=== PATIENT | female | born 1955 | race Caucasian/White ===

== ENCOUNTER 2022-11-28 13:50 | Outpatient (OUT) | payer MEDICARE, OTHER, SELFPAY ==
--- NOTE | 2022-11-28 14:05 | MM_ITS ---
Patient: SHA BALTAZAR Exam Date: 11/28/2022 : 1955 Gender:F Ordering : DR Narendra Brasher . Admission #: [id number] Family : Order #: [id number] CLICK HERE TO VIEW EXAM RADIOLOGY REPORT PROCEDURE: MM TOMOSYNTHESIS SCREENING BI COMPARISON: MG MAMM SCREEN 3D TRACY CAD, 10/20/2020. MG MAMM SCREEN TRACY W CAD, 07/31/2016. INDICATIONS: Screening Calculator Name NCI Breast Cancer Risk Assessment Tool 5 Year Breast Cancer Risk 3.10% Lifetime Breast Cancer Risk 10.40% Personal Breast Cancer No Personal Ovarian Cancer No Treatments None Family Cancers Mother with leukemia cancer at age 83; Father with brain cancer at age 74. LOCATION: [facility] BREAST COMPOSITION: Heterogeneously dense,which may obscure small masses. FINDINGS: DIAGNOSTIC CATEGORY 2--BENIGN FINDING. NO CHANGE FROM COMPARISON. Scattered benign-appearing calcifications are present. Scattered benign-appearing lymph nodes are present. RIGHT BREAST: No significant suspicious finding. Stable focal asymmetry upper outer quadrant deep to a linear scar marker LEFT BREAST: No significant suspicious finding. RECOMMENDATIONS: ROUTINE MAMMOGRAM AND CLINICAL EVALUATION IN 12 MONTHS. PLEASE NOTE: A NORMAL MAMMOGRAM DOES NOT EXCLUDE THE POSSIBILITY OF BREAST CANCER. A CLINICALLY SUSPICIOUS PALPABLE LUMP SHOULD BE BIOPSIED. Dictated by: Sharath العراقي MD on 11/29/2022 at 06:30 Approved by: Sharath العراقي MD on 11/29/2022 at 06:32
[2022-11-28 14:07] LABS: Basophils Absolute Auto 0.1 10^3/uL (0.0-0.1); Basophils Percent Auto 1.1 % (0.2-2.0); Eosinophils Absolute Auto 0.1 10^3/uL (0.0-0.7); Eosinophils Percent Auto 1.5 % (0.9-7.0); Hematocrit 40.1 % (36.0-48.0); Immature Granulocytes Abs Auto 0.02 10^3/uL (0.00-0.03); Immature Granulocytes Pct Auto 0.3 % (0.0-0.5); Lymphocytes Absolute Auto 2.5 10^3/uL (1.2-3.8); Lymphocytes Percent Auto 33.4 % (20.5-60.0); Mean Corpuscular HGB Conc 32.4 g/dL (29.9-35.2); Mean Corpuscular Hemoglobin 31.5 pg (26.7-34.0); Mean Corpuscular Volume 97.1 fL (81.0-99.0); Mean Platelet Volume 10.6 fL (9.5-13.5); Monocytes Absolute Auto 0.6 10^3/uL (0.3-0.8); Monocytes Percent Auto 8.1 % (1.7-12.0); Neutrophils Absolute Auto 4.2 10^3/uL (1.4-6.5); Neutrophils Percent Auto 55.6 % (43.0-75.0); Platelet Count 201 10^3/uL (150-450); Red Blood Count 4.13 10^6/uL (4.20-5.40); Red Cell Distribution Width 13.5 % (11.0-15.0); White Blood Count 7.5 10^3/uL (4.0-11.0)
[2022-11-28 14:47] LABS: Alanine Aminotransferase 22 U/L (14-59); Albumin Globulin Ratio 1.2; Albumin Level 3.6 g/dL (3.4-5.0); Alkaline Phosphatase 116 U/L (46-116); Anion Gap 12.5; Aspartate Amino Transferase 11 U/L (15-37); Bilirubin Direct 0.1 mg/dL (0.0-0.2); Bilirubin Total 0.4 mg/dL (0.2-1.0); Calcium 8.6 mg/dL (8.5-10.1); Carbon Dioxide 27.5 mmol/L (21.0-32.0); Chloride 100 mmol/L (98-107); Chol HDL Ratio 2.5; Cholesterol 192 mg/dL (<=200); Estimated GFR (African America >60 (>=60); Estimated GFR (Non-African Ame >60 (>=60); Globulin 3.1 g/dL; Glucose 87 mg/dL (74-106); HDL Cholesterol 78 mg/dL (40-60); Sodium 136 mmol/L (136-145); Total Protein 6.7 g/dL (6.4-8.2); Triglycerides 164 mg/dL (<=150); VLDL CHOLESTEROL 32.8 mg/dL
== END 2022-11-28 13:51 | disposition home or self-care (01) ==
LOC: MAMMO 13:51
PROVIDERS: PCP Family Medicine; Visit Provider Family Medicine
DX: Z12.31 Encounter for screening mammogram for malignant neoplasm of breast (principal); I10 Essential (primary) hypertension; Z79.899 Other long term (current) drug therapy; Z13.220 Encounter for screening for lipoid disorders; Z80.6 Family history of leukemia
CPT/HCPCS: 36415; 77063; 77067; 80048; 80061; 80076; 85025

== ENCOUNTER 2023-07-06 11:30 | Outpatient (OUT) | payer MEDICARE, OTHER, SELFPAY ==
[2023-07-06 11:55] LABS: Basophils Absolute Auto 0.1 10^3/uL (0.0-0.1); Basophils Percent Auto 1.1 % (0.2-2.0); Eosinophils Absolute Auto 0.2 10^3/uL (0.0-0.7); Eosinophils Percent Auto 1.8 % (0.9-7.0); Hematocrit 39.4 % (36.0-48.0); Hemoglobin 12.7 g/dL (12.0-16.0); Immature Granulocytes Abs Auto 0.03 10^3/uL (0.00-0.03); Immature Granulocytes Pct Auto 0.4 % (0.0-0.5); Lymphocytes Absolute Auto 2.5 10^3/uL (1.2-3.8); Lymphocytes Percent Auto 29.6 % (20.5-60.0); Mean Corpuscular HGB Conc 32.2 g/dL (29.9-35.2); Mean Corpuscular Hemoglobin 30.8 pg (26.7-34.0); Mean Corpuscular Volume 95.6 fL (81.0-99.0); Mean Platelet Volume 10.4 fL (9.5-13.5); Monocytes Absolute Auto 0.9 10^3/uL (0.3-0.8); Monocytes Percent Auto 10.4 % (1.7-12.0); Neutrophils Absolute Auto 4.8 10^3/uL (1.4-6.5); Neutrophils Percent Auto 56.7 % (43.0-75.0); Platelet Count 208 10^3/uL (150-450); Red Blood Count 4.12 10^6/uL (4.20-5.40); Red Cell Distribution Width 13.6 % (11.0-15.0); White Blood Count 8.4 10^3/uL (4.0-11.0)
[2023-07-06 12:16] LABS: Anion Gap 13.3; BUN Creatinine Ratio 16.2; C Reactive Protein 0.69 mg/dL (<=0.50); Calcium 9.3 mg/dL (8.5-10.1); Carbon Dioxide 27.1 mmol/L (21.0-32.0); Chloride 96 mmol/L (98-107); Creatine Kinase 30 U/L (26-192); Estimated GFR (African America >60 (>=60); Estimated GFR (Non-African Ame >60 (>=60); Glucose 75 mg/dL (74-106); Potassium 4.4 mmol/L (3.5-5.1); Sodium 132 mmol/L (136-145)
[2023-07-06 12:18] LABS: Erythrocyte Sedimentation Rate 47 mm/hr (<=30)
[2023-07-07 06:16] LABS: Rheumatoid Factor (RF) <10.0 IU/mL (<14.0)
[2023-07-10 14:08] LABS: Antinuclear Antibodies, IFA Negative (.)
== END 2023-07-06 11:31 | disposition home or self-care (01) ==
LOC: LAB 11:32
PROVIDERS: PCP Family Medicine; Visit Provider Family Medicine
DX: M79.10 Myalgia, unspecified site (principal); M25.541 Pain in joints of right hand; M25.542 Pain in joints of left hand; I10 Essential (primary) hypertension; Z79.899 Other long term (current) drug therapy
CPT/HCPCS: 36415; 80048; 82550; 85025; 85652; 86038; 86140; 86431

== ENCOUNTER 2024-04-23 12:45 | Outpatient (OUT) | payer MEDICARE, SELFPAY ==
--- NOTE | 2024-04-23 12:50 | MM_ITS ---
Patient Name: SHA BALTAZAR MR#: [id number] : 1955 Exam Date: 04/23/2024 Ordering Doctor: DR Narendra Brasher . RADIOLOGY REPORT PROCEDURE: MM TOMOSYNTHESIS SCREENING BI COMPARISON: MM TOMOSYNTHESIS SCREENING BI, 11/28/2022. MG MAMM SCREEN 3D TRACY CAD, 10/20/2020. MG MAMM SCREEN TRACY W CAD, 07/31/2016. INDICATIONS: Screening Calculator Name NCI Breast Cancer Risk Assessment Tool 5 Year Breast Cancer Risk 3.10% Lifetime Breast Cancer Risk 9.50% Personal Breast Cancer No Personal Ovarian Cancer No Treatments None Family Cancers Mother with leukemia cancer at age 83; Father with brain cancer at age 74. LOCATION: [facility] BREAST COMPOSITION: There are scattered areas of fibroglandular density. FINDINGS: DIAGNOSTIC CATEGORY 1--NEGATIVE. LEFT BREAST: No significant suspicious finding. RIGHT BREAST: No significant suspicious finding. RECOMMENDATIONS: ROUTINE MAMMOGRAM AND CLINICAL EVALUATION IN 12 MONTHS. PLEASE NOTE: A NORMAL MAMMOGRAM DOES NOT EXCLUDE THE POSSIBILITY OF BREAST CANCER. A CLINICALLY SUSPICIOUS PALPABLE LUMP SHOULD BE BIOPSIED. Dictated by: Josiah Don DO on 04/24/2024 at 09:57 Approved by: Josiah Don DO on 04/24/2024 at 09:58
--- OUTSIDE RECORDS SUMMARY | 2024-04-23 12:51 | XMS_ITS | CCD ---
Author Organization [facility] Care Team Providers [place] Nurse Name Role Phone Callum Chua Unavailable SERVANDO, DR NARENDRA Dykes Admitting Unavailable SERVANDO, DR NARENDRA Dykes Primary Care Unavailable SERVANDO, DR NARENDRA Dykes Attending Unavailable AMRIK ., DR SOW Consulting Unavailable MOISES, DR ROLAN Tucker Consulting Unavaildimitrios KEVIN, DR ABDULLAHI Do Consulting Unavailable SERVANDO, DR NARENDRA Dykes Consulting Unavailable KELTON, MICHAEL Consulting Unavailable JAMAL, CARRIE Consulting Unavailable SERVANDO, DR NARENDRA Dykes Primary Care Unavailable SERVANDO, DR NARENDRA Dykes Consulting Unavailable SERVANDO, DR NARENDRA Dykes Attending Unavailable SERVANDO, DR NARENDRA Dykes Admitting Unavailable NO FAMILY, PHYSICIAN Primary Care Provider Unava ilable Steve Healy MD Attending Provider Steve Healy Attending Unavailable NO FAMILY, PHYSICIAN Primary Care Unavailable Steve Healy Admitting Unavailable Steve Healy Admitting Unavailable Steve Healy Attending Unavailable NO FAMILY, PHYSICIAN Primary Care Unavailable Narendra Al MD Primary Care Provider [phone] Narendra Al MD Unavailable NARENDRA AL Attending Unavailable SERVANDO, NARENDRA Attending Unavailable SERVANDO, NARENDRA Attending Unavailable NARENDRA AL Attending Unavailable Medications Current Medications Medication Drug Class(es) Dates Sig (Normalized) Sig (Original) [id number] 200 actuat albuterol 0.09 mg/actuat metered dose inhaler (2 sources) beta2-Adrenergic Agonist Start: 04-07-2024 take 2 puff(s) by inhalation every four hours for wheezing albuterol HFA 90 mcg/act inhaler Indications: Acute bronchitis due to other specified organisms Inhale 2 puffs every 4 (four) hours if needed for shortness of breath or wheezing 18 g 2 04/07/2024 Active Start: 04-07-2024 take 2 puff(s) by in halation every four hours for wheezing albuterol HFA 90 mcg/act inhaler Indications: Acute bronchitis due to other specified organisms Inhale 2 puffs every 4 (four) hours if needed for shortness of breath or wheezing 18 g 2 04/07/2024 Active budesonide 3 mg delayed release oral capsule (8 sources) Corticosteroid Start: 01-17-2024 take 1 capsule by mouth once daily Budesonide 3 mg capsule,delayed,extend.release Active 3 MG PO Daily January 17, 2024 12:00am Start: 12-11-2017 take 1 capsule by mo [facility] every twenty-four hours Budesonide 3 MG 1 CAPSULE Orally Once a day for 90 days Nov, Active take 1 capsule by mo ut in the morning, then take 3 mg by mouth every twenty-four hours budesonide EC (Entocort EC) 3 MG 24 hr capsule Take 6 mg by mouth in the morning. Active cefdinir 300 mg oral capsule (2 sources) Cephalosporin Antibacterial Start: 03-26-2024 End: 04-07-2024 take 1 capsule by mouth in the morning cefdinir (Omnicef) 300 MG capsule Indications: Upper respiratory tract infection, unspecified type Take 1 capsule (300 mg) by mouth in the morning and 1 capsule (300 mg) before bedtime. Do all this for 10 days. 20 capsule 03/26/2024 04/07/2024 Discontinued cholecalciferol 0.05 mg oral capsule (3 sources) Vitamin D take 1 capsule by mouth in the morning cholecalciferol (Vitamin D-3) 50 MCG (1999 UT) capsule Take 2,000 Units by mouth in the morning. Active levoFLOXacin 750 mg oral tablet (2 sources) Quinolone Antimicrobial Start: 04-07-2024 End: 04-14-2024 take 1 tablet by mouth once daily levoFLOXacin (Levaquin) 750 MG tablet Indications: Acute bronchitis due to other specified organisms Take 1 tablet (750 mg) by mouth Daily for 7 days 7 tablet 04/07/2024 04/14/2024 Active lisinopril 40 mg oral tablet (9 sources) Angiotensin Converting Enzyme Inhibitor Start: 11-07-2023 take 1 tablet by mouth once daily lisinopril 40 MG tablet Indications: Essential (primary) hypertension (CMS/HCC) , Benign essential hypertension (CMS/HCC) TAKE 1 TABLET BY MOUTH EVERY DAY 90 tablet 3 11/07/2023 Active Start: 11-28-2017 take 1 tablet by david once daily Lisinopril 20 mg tablet Active 20 MG PO Daily November 27, 2017 11:00pm predniSONE 50 mg oral tablet (5 sources) Start: 04-07-2024 End: 04-13-2024 take 1 tablet by mouth once daily predniSONE (Deltasone) 50 MG tablet Indications: Acute bronchitis due to other specified organisms Take 1 tablet (50 mg) by mouth Daily for 6 days 6 tablet 04/07/2024 04/13/2024 Active Start: 11-26-2023 predniSONE (De ltasone) 10 MG tablet Indications: Polymyalgia rheumatica (CMS/HCC) TAKE 6 TABS DAILY FOR 3 DAYS,4 TABS FOR 3 DAYS, 2 TABLETS FOR 3 DAYS, THEN 1 TABLET DAILY 60 tablet 1 11/26/2023 Active Completed/Discontinued Medications Medication Drug Class(es) Dates Sig (Normalized) Sig (Original) hydroCHLOROthiazide 25 mg oral tablet (5 sources) Thiazide Diuretic Start: End: take 1 tablet by mouth once daily Hydrochlorothiazide 25 mg tablet Discontinued 25 MG PO Daily November 27, 2017 11:00pm January 17, 2024 1:10pm Problems Active Problems Problem Classification Problem Date Documented Da te Episodic/Chronic Acute bronchitis (4 sources) Acute infective bronchitis; Translations: [Acute bronchitis due to other specified organisms] Onset: 04-07-2024 04-07-2024 Episodic Essential hypertension (6 sources) Essential (primary) hypertension; Translations: [Benign essential hypertension] Onset: 11-01-2021 01-25-2023 Chronic Noninfectious gastroenteritis (9 sources) Microscopic colitis; Translations: [Microscopic colitis, unspecified] Onset: 04-28-2021 Resolved: 06-22-2021 Chronic Noninfectious gastroenteritis (5 sources) Microscopic colitis; Translations: [Other specified noninfective gastroenteritis and colitis] Onset: 11-01-2021 Episodic Nutritional deficiencies (3 sources) Vitamin D deficiency; Translations: [Vitamin D deficiency, unspecified] Onset: 01-25-2023 01-25-2023 Chronic Other connective tissue disease (1 source) Polymyalgia rheumatica; Translations: [Polymyalgia rheumatica] Onset: 03-10-2024 Chronic Other connective tissue disease (5 sources) Polymyalgia rheumatica; Translations: [Polymyalgia rheumatica] Onset: 07-05-2023 08-02-2023 Chronic Other gastrointestinal disorders (2 sources) Irritable bowel syndrome with diarrhea; Translations: [Irritable bowel syndrome with diarrhea] Chronic Other gastrointestinal disorders (2 sources) Irritable bowel syndrome with diarrhea Onset: 06-22-2021 Resolved: 06-22-2021 Chronic Other gastrointestinal disorders (4 sources) Diarrhea; Translations: [Diarrhea, unspecified] Episodic Other screening for suspected conditions (not mental disorders or infectious disease) (2 sources) Patient encounter status; Translations: [Encounter for screening mammogram for malignant neoplasm of breast] 04-07-2024 Episodic Pancreatic disorders (not diabetes) (4 sources) Exocrine pancreatic insufficiency; Translations: [Exocrine pancreatic insufficiency] Episodic Viral infection (1 source) COVID-19; Translations: [COVID-19] Onset: 11-01-2021 Past or Other Problems Problem Classification Problem Date Documented Da te Episodic/Chronic Fluid and electrolyte disorders (5 sources) Hypo-osmolality and hyponatremia; Translations: [Dehydration] Onset: 11-01-2021 Episodic Mood disorders (3 sources) Mood disorders Onset: 08-02-2023 08-02-2023 Other aftercare (1 source) Other exterminator helper (current) drug therapy; Translations: [OTH LONGTERM CURRENT DRUG THERAPY] Onset: 11-01-2021 Episodic Other aftercare (3 sources) Long-term current use of drug therapy; Translations: [Other exterminator helper (current) drug therapy] Onset: 07-05-2023 07-05-2023 Episodic Other connective tissue disease (1 source) Pain in left hand; Translations: [Pain in left hand] Onset: 12-20-2023 Episodic Other non-traumatic joint disorders (3 sources) Bilateral pain of joint of hands; Translations: [Pain in joints of right hand] Onset: 07-05-2023 07-05-2023 Episodic Results Test Name Value Interpretation Reference Range Facility C reactive protein [Mass/vol ume] in Serum or PlasmaOrdered By: Steve Healy on 03-10-2024 CRP [Mass/Vol] C reactive protein [Mass/volume] in Serum or Plasma 0.0-0.5 [facility] C-Reactive Proteinon 025 CRP [Mass/Vol] mg/L Normal 0.0-0.5 [facility] Comment on above: Result Comment: PERF ORMED BY: [place] [address] PATHOLOGIST HVAC SERVICE TECHNICIAN SABRINA SINGER M.D. Performed By: #### E SR, CRP #### [address] Erythrocyte Sedimentation Ra kale 03-10-2024 ESR (Bld) [Velocity] 10 mm/h Normal 0-29 [facility] Comment on above: Result Comment: PERF ORMED BY: [place] [address] PATHOLOGIST HVAC SERVICE TECHNICIAN SABRINA SINGER M.D. Performed By: #### E SR, CRP #### [address] Erythrocyte sedimentation ra te by Photometric methodOrdered By: Steve Healy on 03-10-2024 ESR Photometric method (Bld) [Velocity] Erythrocyte sedimentation rate by Photometric method 0-29 [facility] LEYDI Antinuclear Antibodieson 12-20-2023 Antinuclear Abs, IFA Negative Normal . [facility] Comment on above: Result Comment: Nega tive <1:80 Borderline 1:80 Positive >1:80 ICAP nomenclature: AC-0 For more information about Hep-2 cell patterns use ANApatterns.org, the official website for the International Consensus on Antinuclear Antibody (LEYDI) Patterns (ICAP). Performed at: - [facility] [id number] Senior Partner: Jaquan Ac PhD, Phone: [phone] PERFORMED BY: [place] [address] PATHOLOGIST HVAC SERVICE TECHNICIAN JOSE CARLOS CUEVAS M.D. Performed By: #### A NA #### [facility] , #### CK, CRP, CBC, TSH3, ESR, PTH, CMP #### [address] Alanine aminotransferase [En zymatic activity/volume] in Serum or PlasmaOrdered By: Steve Healy on 12-20-2023 ALT [Catalytic activity/Vol] Alanine aminotransferase [Enzymatic activity/volume] in Serum or Plasma 7-52 [facility] Albumin [Mass/volume] in Ser um or Plasma by Bromocresol green (BCG) dye binding methoOrdered By: Steve Healy on 12-20-2023 Albumin BCG dye [Mass/Vol] Albumin [Mass/volume] in Serum or Plasma by Bromocresol green (BCG) dye binding metho 3.5-5.7 [facility] Alkaline phosphatase [Enzyma tic activity/volume] in Serum or PlasmaOrdered By: Steve Healy on 12-20-2023 ALP [Catalytic activity/Vol] Alkaline phosphatase [Enzymatic activity/volume] in Serum or Plasma 34-104 [facility] Aspartate aminotransferase [ Enzymatic activity/volume] in Serum or PlasmaOrdered By: Steve Healy on 12-20-2023 AST [Catalytic activity/Vol] Aspartate aminotransferase [Enzymatic activity/volume] in Serum or Plasma 13-39 [facility] Basophils Auto (Bld) [#/Vol] Ordered By: Steve Healy on 12-20-2023 Basophils (Bld) [#/Vol] Automated basoph il count 0.0-0.2 [facility] Basophils/100 WBC Auto (Bld) Ordered By: Steve Healy on 12-20-2023 Basophils/100 WBC (Bld) Automated basophil % . [facility] Bilirubin.total [Mass/volume ] in Serum or PlasmaOrdered By: Steve Healy on 12-20-2023 Bilirubin [Mass/Vol] Bilirubin.total [Mass/volume] in Serum or Plasma 0.3-1.0 [facility] C reactive protein [Mass/vol ume] in Serum or PlasmaOrdered By: Steve Healy on 12-20-2023 CRP [Mass/Vol] C reactive protein [Mass/volume] in Serum or Plasma 0.0-0.5 [facility] C-Reactive Proteinon 11-07-2 024 CRP [Mass/Vol] mg/L Normal 0.0-0.5 [facility] Comment on above: Performed By: #### A NA #### [facility] , #### CK, CRP, CBC, TSH3, ESR, PTH, CMP #### [address] Calcium [Mass/volume] in Ser um or PlasmaOrdered By: Steve Healy on 12-20-2023 Calcium [Mass/Vol] Calcium [Mass/volume] in Serum or Plasma 8.6-10.3 [facility] Carbon dioxide, total [Moles /volume] in Serum or PlasmaOrdered By: Steve Healy on 12-20-2023 CO2 [Moles/Vol] Carbon dioxide, total [Moles/volume] in Serum or Plasma 21.0-31.0 [facility] Chloride [Moles/volume] in S chloe or PlasmaOrdered By: Steve Healy on 12-20-2023 Chloride [Moles/Vol] Chloride [Moles/volume] in Serum or Plasma 98-107 [facility] Complete Blood Count Auto Di ffon 12-20-2023 Basophils (Bld) [#/Vol] 0.1 10*3/uL Normal 0.0-0.2 [facility] Comment on above: Performed By: #### A NA #### [facility] , #### CK, CRP, CBC, TSH3, ESR, PTH, CMP #### [facility] [address] [place] [address] [place] Basophils/100 WBC (Bld) 1.2 % Normal . [facility] Comment on above: Performed By: #### A NA #### [facility] , #### CK, CRP, CBC, TSH3, ESR, PTH, CMP #### [facility] [address] [place] [address] Eosinophils (Bld) [#/Vol] 0.1 10*3/uL Normal 0.0-0.45 [facility] Comment on above: Performed By: #### A NA #### [facility] , #### CK, CRP, CBC, TSH3, ESR, PTH, CMP #### [address] Eosinophils/100 WBC (Bld) 1.2 % Normal . [facility] Comment on above: Performed By: #### A NA #### [facility] , #### CK, CRP, CBC, TSH3, ESR, PTH, CMP #### [address] Erythrocyte distribution width (RBC) [Ratio] 14.5 % Normal 11.9-15.3 [facility] Comment on above: Performed By: #### A NA #### [facility] , #### CK, CRP, CBC, TSH3, ESR, PTH, CMP #### [address] Hematocrit (Bld) [Volume fraction] 40.6 % Normal 34.0-46.4 [facility] Comment on above: Performed By: #### A NA #### [facility] , #### CK, CRP, CBC, TSH3, ESR, PTH, CMP #### [address] Hemoglobin (Bld) [Mass/Vol] 13.7 g/dL Normal 11.8-15.4 [facility] Comment on above: Performed By: #### A NA #### [facility] , #### CK, CRP, CBC, TSH3, ESR, PTH, CMP #### [address] Lymphocytes (Bld) [#/Vol] 2.6 10*3/uL Normal 1.00-4.8 [facility] Comment on above: Performed By: #### A NA #### [facility] , #### CK, CRP, CBC, TSH3, ESR, PTH, CMP #### [address] [place] [address] [place] Lymphocytes/100 WBC (Bld) 34.1 % Normal . [facility] Comment on above: Performed By: #### A NA #### [facility] , #### CK, CRP, CBC, TSH3, ESR, PTH, CMP #### [address] MCH (RBC) [Entitic mass] 33.4 pg Normal 24.7-34.3 [facility] Comment on above: Performed By: #### A NA #### [facility] , #### CK, CRP, CBC, TSH3, ESR, PTH, CMP #### [address] MCV (RBC) [Entitic vol] 99.2 fL Normal 80-100 [facility] Comment on above: Performed By: #### A NA #### [facility] , #### CK, CRP, CBC, TSH3, ESR, PTH, CMP #### [address] Mean Corpuscular HGB Conc 33.7 g/dL Normal 32.0-35.0 [facility] Comment on above: Performed By: #### A NA #### [facility] , #### CK, CRP, CBC, TSH3, ESR, PTH, CMP #### [address] Monocytes (Bld) [#/Vol] 0.7 10*3/uL Normal 0.0-0.8 [facility] Comment on above: Performed By: #### A NA #### [facility] , #### CK, CRP, CBC, TSH3, ESR, PTH, CMP #### [address] Monocytes/100 WBC (Bld) 9.6 % Normal . [facility] Comment on above: Performed By: #### A NA #### [facility] , #### CK, CRP, CBC, TSH3, ESR, PTH, CMP #### [address] Neutrophils (Bld) [#/Vol] 4.1 10*3/uL Normal 1.8-7.7 [facility] Comment on above: Performed By: #### A NA #### [facility] , #### CK, CRP, CBC, TSH3, ESR, PTH, CMP #### [address] Neutrophils/100 WBC (Bld) 53.9 % Normal . [facility] Comment on above: Performed By: #### A NA #### [facility] , #### CK, CRP, CBC, TSH3, ESR, PTH, CMP #### [address] NRBC% 0.1 /100{WBC} Normal 0-0.5 [facility] Comment on above: Performed By: #### A NA #### [facility] , #### CK, CRP, CBC, TSH3, ESR, PTH, CMP #### [address] Platelet mean volume (Bld) [Entitic vol] 9.7 fL Normal 6.3-10.7 [facility] Comment on above: Performed By: #### A NA #### [facility] , #### CK, CRP, CBC, TSH3, ESR, PTH, CMP #### [place] [address] [place] Platelets (Bld) [#/Vol] 190 10*3/uL Normal 150-450 [facility] Comment on above: Performed By: #### A NA #### [facility] , #### CK, CRP, CBC, TSH3, ESR, PTH, CMP #### [place] [id number] [place] RBC (Bld) [#/Vol] 4.09 10*6/uL Normal 3.60-5.00 [facility] Comment on above: Performed By: #### A NA #### [facility] , #### CK, CRP, CBC, TSH3, ESR, PTH, CMP #### [address] WBC (Bld) [#/Vol] 7.6 10*3/uL Normal 3.8-11.6 [facility] Comment on above: Performed By: #### A NA #### [facility] , #### CK, CRP, CBC, TSH3, ESR, PTH, CMP #### [address] Comprehensive Metabolic Pane [facility] 12-20-2023 Albumin [Mass/Vol] 4.5 g/dL Normal 3.5-5.7 [facility] Comment on above: Performed By: #### A NA #### [facility] , #### CK, CRP, CBC, TSH3, ESR, PTH, CMP #### [address] Albumin/Globulin [Mass ratio] 2.3 {ratio} Normal [facility] Comment on above: Performed By: #### A NA #### [facility] , #### CK, CRP, CBC, TSH3, ESR, PTH, CMP #### [address] ALP [Catalytic activity/Vol] 83 U/L Normal 34-104 [facility] Comment on above: Performed By: #### A NA #### [facility] , #### CK, CRP, CBC, TSH3, ESR, PTH, CMP #### [address] ALT [Catalytic activity/Vol] 14 U/L Normal 7-52 [facility] Comment on above: Performed By: #### A NA #### [facility] , #### CK, CRP, CBC, TSH3, ESR, PTH, CMP #### [address] Anion gap [Moles/Vol] 12.0 mmol/L Normal 6.0-15.0 [facility] Comment on above: Performed By: #### A NA #### [facility] , #### CK, CRP, CBC, TSH3, ESR, PTH, CMP #### [address] AST [Catalytic activity/Vol] 15 U/L Normal 13-39 [facility] Comment on above: Performed By: #### A NA #### [facility] , #### CK, CRP, CBC, TSH3, ESR, PTH, CMP #### [address] Bilirubin [Mass/Vol] 0.5 mg/dL Normal 0.3-1.0 [facility] Comment on above: Performed By: #### A NA #### [facility] , #### CK, CRP, CBC, TSH3, ESR, PTH, CMP #### [address] Calcium [Mass/Vol] 9.4 mg/dL Normal 8.6-10.3 [facility] Comment on above: Performed By: #### A NA #### [facility] , #### CK, CRP, CBC, TSH3, ESR, PTH, CMP #### [place] [address] [place] Chloride [Moles/Vol] 101 mmol/L Normal 98-107 [facility] Comment on above: Performed By: #### A NA #### [facility] , #### CK, CRP, CBC, TSH3, ESR, PTH, CMP #### [address] [address] [place] CO2 [Moles/Vol] 27.7 mmol/L Normal 21.0-31.0 [facility] Comment on above: Performed By: #### A NA #### [facility] , #### CK, CRP, CBC, TSH3, ESR, PTH, CMP #### [address] Creatinine [Mass/Vol] 0.85 mg/dL Normal 0.60-1.20 [facility] Comment on above: Performed By: #### A NA #### [facility] , #### CK, CRP, CBC, TSH3, ESR, PTH, CMP #### [address] GFR/1.73 sq M.predicted MDRD (S/P/Bld) [Vol rate/Area] mL/min/{1.73_m2} Normal [facility] Comment on above: Performed By: #### A NA #### [facility] , #### CK, CRP, CBC, TSH3, ESR, PTH, CMP #### [address] Globulin (S) [Mass/Vol] 2.0 g/dL Normal [facility] Comment on above: Performed By: #### A NA #### [facility] , #### CK, CRP, CBC, TSH3, ESR, PTH, CMP #### [address] Glucose [Mass/Vol] 87 mg/dL Normal 70-100 [facility] Comment on above: Result Comment: [place] Glucose Reference Range is dependent on time and content of last meal. Glucose of more than 200 mg/dL in a nonstressed, ambulatory subject supports the diagnosis of Diabetes Mellitus. ADA recommended reference range Performed By: #### A NA #### [facility] , #### CK, CRP, CBC, TSH3, ESR, PTH, CMP #### [address] Potassium [Moles/Vol] 4.7 mmol/L Normal 3.5-5.1 [facility] Comment on above: Performed By: #### A NA #### [facility] , #### CK, CRP, CBC, TSH3, ESR, PTH, CMP #### [address] Protein [Mass/Vol] 6.5 g/dL Normal 6.4-8.9 [facility] Comment on above: Performed By: #### A NA #### [facility] , #### CK, CRP, CBC, TSH3, ESR, PTH, CMP #### [address] Sodium [Moles/Vol] 136 mmol/L Normal 136-145 [facility] Comment on above: Performed By: #### A NA #### [facility] , #### CK, CRP, CBC, TSH3, ESR, PTH, CMP #### [address] Urea nitrogen [Mass/Vol] 16 mg/dL Normal 7-25 [facility] Comment on above: Performed By: #### A NA #### [facility] , #### CK, CRP, CBC, TSH3, ESR, PTH, CMP #### [address] Creatine Kinaseon 12-20-2023 CK [Catalytic activity/Vol] 37 U/L Normal 30-223 [facility] Comment on above: Result Comment: PERF ORMED BY: [place] [address] PATHOLOGIST HVAC SERVICE TECHNICIAN JOSE CARLOS CUEVAS M.D. Performed By: #### A NA #### [facility] , #### CK, CRP, CBC, TSH3, ESR, PTH, CMP #### [address] [place] [address] [facility] Creatine kinase [Enzymatic a ctivity/volume] in Serum or PlasmaOrdered By: Steve Healy on 12-20-2023 CK [Catalytic activity/Vol] Creatine kinase [Enzymatic activity/volume] in Serum or Plasma 30 [facility] Creatinine [Mass/volume] in Serum or PlasmaOrdered By: Steve Healy on 12-20-2023 Creatinine [Mass/Vol] Creatinine [Mass/volume] in Serum or Plasma 0.60-1.20 [facility] Eosinophils Auto (Bld) [#/Vo l]Ordered By: Steve Healy on 12-20-2023 Eosinophils (Bld) [#/Vol] Automated eosinophil count 0.0-0.45 [facility] Eosinophils/100 WBC Auto (Bl d)Ordered By: Steve Healy on 12-20-2023 Eosinophils/100 WBC (Bld) Automated eosinophil % . [facility] Erythrocyte Sedimentation Ra kale 12-20-2023 ESR (Bld) [Velocity] 15 mm/h Normal 0-29 [facility] Comment on above: Result Comment: PERF ORMED BY: [place] [address] PATHOLOGIST HVAC SERVICE TECHNICIAN JOSE CARLOS CUEVAS M.D. Performed By: #### A NA #### [facility] , #### CK, CRP, CBC, TSH3, ESR, PTH, CMP #### [address] Erythrocyte distribution wid th Auto (RBC) [Ratio]Ordered By: Steve Healy on 12-20-2023 Erythrocyte distribution width (RBC) [Ratio] Erythrocyte distribution width [Ratio] by Automated count 11.9-15.3 [facility] Erythrocyte sedimentation ra te by Photometric methodOrdered By: Steve Healy on 12-20-2023 ESR Photometric method (Bld) [Velocity] Erythrocyte sedimentation rate by Photometric method 0-29 [facility] Globulin Calc (S) [Mass/Vol] Ordered By: Steve Healy on 12-20-2023 Globulin (S) [Mass/Vol] Serum globulin measurement by calculation (mass/volume) [facility] Glucose [Mass/volume] in Ser um or PlasmaOrdered By: Steve Healy on 12-20-2023 Glucose [Mass/Vol] Glucose [Mass/volume] in Serum or Plasma 70-100 [facility] Comment on above: ADA recommended refe rence rangeRandom Glucose Reference Range is dependent on time and content of last meal. Glucose of more than 200 mg/dL in a nonstressed, ambulatory subject supports the diagnosis of Diabetes Mellitus. Hematocrit Auto (Bld) [Volum e fraction]Ordered By: Steve Healy on 12-20-2023 Hematocrit (Bld) [Volume fraction] Hematocrit [Volume Fraction] of Blood by Automated count 34.0-46.4 [facility] Hemoglobin [Mass/volume] in BloodOrdered By: Steve Healy on 12-20-2023 Hemoglobin (Bld) [Mass/Vol] Hemoglobin [Mass/volume] in Blood 11.8-15.4 [facility] Leukocytes [#/volume] correc ivan for nucleated erythrocytes in Blood by Automated counOrdered By: Steve Healy on 12-20-2023 WBC corrected for nucl RBC Auto (Bld) [#/Vol] Leukocytes [#/volume] corrected for nucleated erythrocytes in Blood by Automated coun 3.8-11.6 [facility] Lymphocytes Auto (Bld) [#/Vo l]Ordered By: Steve Healy on 12-20-2023 Lymphocytes (Bld) [#/Vol] Lymphocytes [#/volume] in Blood by Automated count 1.00-4.8 [facility] Lymphocytes/100 WBC Auto (Bl d)Ordered By: Steve Healy on 12-20-2023 Lymphocytes/100 WBC (Bld) Lymphocytes/100 leukocytes in Blood by Automated count . [facility] MCH Auto (RBC) [Entitic mass ]Ordered By: Steve Healy on 12-20-2023 MCH (RBC) [Entitic mass] MCH [Entitic ma ss] by Automated count 24.7-34.3 [facility] MCHC Auto (RBC) [Mass/Vol]Or dered By: Steve Healy on 12-20-2023 MCHC (RBC) [Mass/Vol] MCHC [Mass/volume] by Automated count 32.0-35.0 [facility] MCV Auto (RBC) [Entitic vol] Ordered By: Steve Healy on 12-20-2023 MCV (RBC) [Entitic vol] MCV [Entitic vol ume] by Automated count 80-100 [facility] Monocytes Auto (Bld) [#/Vol] Ordered By: Steve Healy on 12-20-2023 Monocytes (Bld) [#/Vol] Automated blood monocyte count 0.0-0.8 [facility] Monocytes/100 WBC Auto (Bld) Ordered By: Steve Healy on 12-20-2023 Monocytes/100 WBC (Bld) Automated monocyte % . [facility] Neutrophils Auto (Bld) [#/Vo l]Ordered By: Steve Healy on 12-20-2023 Neutrophils (Bld) [#/Vol] Neutrophils [#/volume] in Blood by Automated count 1.8-7.7 [facility] Neutrophils/100 WBC Auto (Bl d)Ordered By: Steve Healy on 12-20-2023 Neutrophils/100 WBC (Bld) Automated neutrophil % . [facility] No Panel InformationOrdered By: Steve Healy on 12-20-2023 Estimated GFR (CKD-EPI) > 60.0 mL/Min [facility] Creatinine Clearance (Chem N/A [facility] Nucleated erythrocytes [Pres ence] in Blood by Automated countOrdered By: Steve Healy on 12-20-2023 Nucleated RBC Auto Ql (Bld) Nucleated erythrocytes [Presence] in Blood by Automated count 0-0.5 [facility] Parathyrin.intact [Mass/volu me] in Serum or PlasmaOrdered By: Steve Healy on 12-20-2023 Parathyrin.intact [Mass/Vol] Parathyrin.intact [Mass/volume] in Serum or Plasma [facility] Parathyroid Hormone Intacton 12-20-2023 Parathyroid Hormone Intact 50.1 pg/mL Normal [facility] Comment on above: Result Comment: PERF ORMED BY: [facility] [address] [place] [address] PATHOLOGIST HVAC SERVICE TECHNICIAN JOSE CARLOS CUEVAS M.D. Performed By: #### A NA #### [facility] , #### CK, CRP, CBC, TSH3, ESR, PTH, CMP #### [facility] [address] Platelet mean volume Auto (B ld) [Entitic vol]Ordered By: Steve Healy on 12-20-2023 Platelet mean volume (Bld) [Entitic vol] Platelet mean volume [Entitic volume] in Blood by Automated count 6.3-10.7 [facility] Platelets Auto (Bld) [#/Vol] Ordered By: Steve Healy on 12-20-2023 Platelets (Bld) [#/Vol] Platelets [#/vol ume] in Blood by Automated count 150-450 [facility] Potassium [Moles/volume] in Serum or PlasmaOrdered By: Steve Healy on 12-20-2023 Potassium [Moles/Vol] Potassium [Moles/volume] in Serum or Plasma 3.5-5.1 [facility] Protein [Mass/volume] in Ser um or PlasmaOrdered By: Steve Healy on 12-20-2023 Protein [Mass/Vol] Protein [Mass/volume] in Serum or Plasma 6.4-8.9 [facility] RBC Auto (Bld) [#/Vol]Ordere d By: Steve Healy on 12-20-2023 RBC (Bld) [#/Vol] Erythrocytes [#/volume] in Blood by Automated count 3.60-5.00 [facility] Serum nuclear antibody titer Ordered By: Steve Healy on 12-20-2023 Nuclear Ab (S) [Titer] Serum nuclear antibody titer . [facility] Comment on above: Negative <1:80 Borde rline 1:80 Positive >1:80ICAP nomenclature: AC-0For more information about Hep-2 cell patterns useANApatterns.org, the official website for theInternational Consensus on Antinuclear Antibody (LEYDI)Patterns (ICAP).Performed at: - [facility] [address] [id number] Director: Jaquan Ac PhD, Phone: [phone] Serum or plasma albumin/glob ulin mass ratioOrdered By: Steve Healy on 12-20-2023 Albumin/Globulin [Mass ratio] Serum or plasma albumin/globulin mass ratio [facility] Serum or plasma anion gap de terminationOrdered By: Steve Healy on 12-20-2023 Anion gap [Moles/Vol] Serum or plasma anion gap determination 6.0-15.0 [facility] Sodium [Moles/volume] in Ser um or PlasmaOrdered By: Steve Healy on 12-20-2023 Sodium [Moles/Vol] Sodium [Moles/volume] in Serum or Plasma 136-145 [facility] Thyroid Stimulating Hormoneo n 12-20-2023 TSH Qn 1.03 m[IU]/L Normal 0.45-5.33 [facility] Comment on above: Result Comment: PERF ORMED BY: [place] [address] PATHOLOGIST HVAC SERVICE TECHNICIAN JOSE CARLOS CUEVAS M.D. Performed By: #### A NA #### [facility] , #### CK, CRP, CBC, TSH3, ESR, PTH, CMP #### [facility] [address] Thyrotropin [Units/volume] i n Serum or PlasmaOrdered By: Steve Healy on 12-20-2023 TSH Qn Thyrotropin [Units/volume] in Serum or Plasma 0.45-5.33 [facility] Urea nitrogen [Mass/volume] in Serum or PlasmaOrdered By: Steve Healy on 12-20-2023 Urea nitrogen [Mass/Vol] Urea nitrogen [Mass/volume] in Serum or Plasma 7-25 [facility] WBC Auto (Bld) [#/Vol]Ordere d By: Steve Healy on 12-20-2023 WBC (Bld) [#/Vol] Leukocytes [#/volume] in Blood by Automated count 3.8-11.6 [facility] X-ray reportOrdered By: Roberth Draper on 12-20-2023 Study report [facility] [address] [place] [address] [place] [address] XRay Report Signed Patient: Tiffany Maurer MR#: [id number] : 1955 Acct:[id number] Age/Sex: 68 / F ADM Date: 4 Loc: ICXD Room: Type: [facility] CLI Attending Dr: Steve Healy MD Copies to: Steve Healy MD~ Ordering Provider: Steve Healy MD Date of Service: 12/20/23 XR/XR hand BI 2V: PAIN 2 views both hand plain film COMPARISON: None HISTORY: Bilateral hand pain ACUTE FINDINGS: None DEGENERATIVE CHANGE: Minor bilateral hand degenerative changes. SOFT TISSUE FINDINGS: Unremarkable JOINT EFFUSION: None POSTOP CHANGES: None BONY MINERALIZATION: Adequate XR/XR hand BI 2V IMPRESSION: Moderate bilateral hand degeneration Impression dictated by: Santiago Draper M.D.12/20/2023 3:59 PM Dictation Location: RADIO-PC-23 Transcribed By: ERINN 12/20/23 1559 Dictated By: Santiago Draper DO 12/20/23 1558 Signed By: 12/20/23 [facility]9 [facility] XR hand BI 2Von 12-20-2023 XR hand BI 2V [facility] [place] [address] XRay Report Signed Patient: Tiffany Maurer MR#: [id number] : 1955 Acct:[id number] Age/Sex: 68 / F ADM Date: 12/20/23 Loc: X [facility]: [facility]: Steve Healy MD Copies to: Steve Healy MD Ordering Provider: Steve Healy MD Date of Service: 12/20/23 XR/XR hand BI 2V: PAIN 2 views both hand plain film COMPARISON: None HISTORY: Bilateral hand pain ACUTE FINDINGS: None DEGENERATIVE CHANGE: Minor bilateral hand degenerative changes. SOFT TISSUE FINDINGS: Unremarkable JOINT EFFUSION: None POSTOP CHANGES: None BONY MINERALIZATION: Adequate XR/XR hand BI 2V IMPRESSION: Moderate bilateral hand degeneration Impression dictated by: Santiago Draper M.D.12/20/2023 3:59 PM Dictation Location: RADIO-PC-23 Transcribed By: ERINN 12/20/231558 Dictated By: BaronSantiago S DO 12/20/231557 Signed By: 12/20/231558 Normal [facility] PROF LINDSAY 8 (BAS METB)on Anion gap [Moles/Vol] 9.7 mmol/L Normal [facility] Comment on above: Performed By: #### O SMOU #### [facility] [address] [place] [address] Dr. Dione Johnson Calcium [Mass/Vol] 9.0 mg/dL Normal 8.5-10.1 [facility] Comment on above: Performed By: #### O SMOU #### [facility] [address] [place] [address] Dr. Dione Johnson Chloride [Moles/Vol] 100 mmol/L Normal 98-107 [facility] Comment on above: Performed By: #### O SMOU #### [facility] [address] [place] [address] Dr. Dione Johnson CO2 [Moles/Vol] 29.7 mmol/L Normal 21.0-32.0 [facility] Comment on above: Performed By: #### O SMOU #### [facility] [address] [place] [address] Dr. Dione Johnson Creatinine [Mass/Vol] 0.82 mg/dL Normal 0.55-1.02 [facility] Comment on above: Performed By: #### O SMOU #### [facility] [address] [address] [address] Dione Johnson EGFR-AF [place] >60 Normal >=60 [facility] Comment on above: Performed By: #### O SMOU #### [facility] [address] [address] [address] Dione Johnson EGFR-NON AF [place] >60 Normal >=60 [facility] Comment on above: Performed By: #### O SMOU #### [facility] [address] [place] [address] Dr. Dione Johnson Glucose [Mass/Vol] 101 mg/dL Normal 74-106 [facility] Comment on above: Performed By: #### O SMOU #### [facility] [address] [address] [address] Dione Johnson Potassium [Moles/Vol] 4.4 mmol/L Normal 3.5-5.1 [facility] Comment on above: Performed By: #### O SMOU #### [facility] [address] [address] [address] Dione Johnson Sodium [Moles/Vol] 135 mmol/L Critically low 136-145 [facility] Comment on above: Performed By: #### O SMOU #### [facility] [address] [place] [address] Dr. Dione Johnson Urea nitrogen [Mass/Vol] 9.0 mg/dL Normal 7.0-18.0 [facility] Comment on above: Performed By: #### O SMOU #### [facility] [address] [place] [address] Dr. Dione Johnson Urea nitrogen/Creatinine [Mass ratio] 11.0 mg/mg Normal [facility] Comment on above: Performed By: #### O SMOU #### [facility] [address] [place] [address] Dr. Dione Johnson OSMOLALITYon 10-28-2021 Osmolality [Osmolality] 244 mosm/kg Critically low 280-301 [facility] Comment on above: Result Comment: Re sults verified by repeat testing Performed By: #### O SMO #### [facility] [address] [place] [address] Dr. Dione Johnson OSMOLALITY URINEon 2 Osmolality, Urine 215 mOsmol/kg Normal [facility] Comment on above: Result Comment: 24 h r : 300 - 900 Random: 50 - 1400 After 12hr fluid restriction: >850 Performed By: #### O SMOU #### [facility] [address] [place] [address] Dr. Dione Johnson CBC AUTO DIFFon 10-26-2021 BASO # 0.0 103/ul Normal 0.0-0.1 [facility] Comment on above: Performed By: #### O SMOU #### [facility] [address] [place] [address] Dr. Dione Johnson Basophils/100 WBC (Bld) 0.2 % Normal 0.2-2.0 [facility] Comment on above: Performed By: #### O SMOU #### [facility] [address] [place] [address] Dr. Dione Johnson EO # 0.0 103/ul Normal 0.0-0.7 [facility] Comment on above: Performed By: #### O SMOU #### [facility] [address] [place] [address] Dr. Dione Johnson Eosinophils/100 WBC (Bld) 0.0 % Critically low 0.9-7.0 [facility] Comment on above: Performed By: #### O SMOU #### [facility] [address] [place] [address] Dr. Dione Johnson Erythrocyte distribution width (RBC) [Ratio] 13.2 % Normal 11.0-15.0 [facility] Comment on above: Performed By: #### O SMOU #### [facility] [address] [place] [address] Dr. Dione Johnson Hematocrit (Bld) [Volume fraction] 34.8 % Critically low 36.0-48.0 [facility] Comment on above: Performed By: #### O SMOU #### [facility] [address] [place] [address] Dr. Dione Johnson Hemoglobin (Bld) [Mass/Vol] 11.9 g/dL Critically low 12.0-16.0 [facility] Comment on above: Performed By: #### O SMOU #### [facility] [address] [place] [address] Dr. Dione Johnson IG # 0.10 10e3/ul Critically high 0.00-0.03 [facility] Comment on above: Performed By: #### O SMOU #### [facility] [address] [place] [address] Dr. Dione Johnson IG % 1.2 % Critically high 0.0-0.5 [facility] Comment on above: Performed By: #### O SMOU #### [facility] [address] [address] [address] Doine Johnson LYMPH # 1.2 103/ul Normal 1.2-3.8 [facility] Comment on above: Performed By: #### O SMOU #### [facility] [address] [address] [address] Dione Johnson Lymphocytes/100 WBC (Bld) 14.3 % Critically low 20.5-60.0 [facility] Comment on above: Performed By: #### O SMOU #### [facility] [address] [place] [address] Dr. Dione Johnson MANUAL DIFF REQ NO Normal [facility] Comment on above: Performed By: #### O SMOU #### [facility] [address] [place] [address] Dr. Dione Johnson MCH (RBC) [Entitic mass] 31.5 pg Normal 26.7-34.0 [facility] Comment on above: Performed By: #### O SMOU #### [facility] [address] [place] [address] Dr. Dione Johnson MCHC (RBC) [Mass/Vol] 34.2 g/dL Normal 29.9-35.2 [facility] Comment on above: Performed By: #### O SMOU #### [facility] [address] [place] [address] Dr. Dione Johnson MCV (RBC) [Entitic vol] 92.1 fL Normal 81.0-99.0 [facility] Comment on above: Performed By: #### O SMOU #### [facility] [address] [place] [address] Dr. Dione Johnson MONO # 0.4 103/ul Normal 0.3-0.8 [facility] Comment on above: Performed By: #### O SMOU #### [facility] [address] [place] [address] Dr. Dione Johnson Monocytes/100 WBC (Bld) 4.5 % Normal 1.7-12.0 [facility] Comment on above: Performed By: #### O SMOU #### [facility] [address] [address] [address] Dione Johnson NEUT # 6.7 103/ul Critically high 1.4-6.5 [facility] Comment on above: Performed By: #### O SMOU #### [facility] [address] [address] [address] Dione Johnson Neutrophils/100 WBC (Bld) 79.8 % Critically high 43.0-75.0 [facility] Comment on above: Performed By: #### O SMOU #### [facility] [address] [address] [address] Dione Johnson Platelet mean volume (Bld) [Entitic vol] 10.3 fL Normal 9.5-13.5 [facility] Comment on above: Performed By: #### O SMOU #### [facility] [address] [place] [address] Dr. Dione Johnson PLT 187 103/ul Normal 150-450 [facility] Comment on above: Performed By: #### O SMOU #### [facility] [address] [place] [address] Dr. Dione Johnson RBC 3.78 106/ul Critically low 4.20-5.40 [facility] Comment on above: Performed By: #### O SMOU #### [facility] [address] [place] [address] Dr. Dione Johnson WBC 8.4 103/ul Normal 4.0-11.0 [facility] Comment on above: Performed By: #### O SMOU #### [facility] [address] [place] [address] Dr. Dione Johnson MAGNESIUMon 10-26-2021 Magnesium [Mass/Vol] 2.0 mg/dL Normal 1.8-2.4 [facility] Comment on above: Performed By: #### M G, BMP #### [facility] [address] [place] [address] Dr. Dione Johnson PROF CHEM 8 (BAS METB)on Anion gap [Moles/Vol] 10.1 mmol/L Normal [facility] Comment on above: Performed By: #### M G, BMP #### [facility] [address] [place] [address] Dr. Dione Johnson Calcium [Mass/Vol] 8.3 mg/dL Critically low 8.5-10.1 [facility] Comment on above: Performed By: #### M G, BMP #### [facility] [address] [place] [address] Dr. Dione Johnson Chloride [Moles/Vol] 96 mmol/L Critically low 98-107 [facility] Comment on above: Performed By: #### M G, BMP #### [facility] [address] [place] [address] Dr. Dione Johnson CO2 [Moles/Vol] 25.9 mmol/L Normal 21.0-32.0 [facility] Comment on above: Performed By: #### M G, BMP #### [facility] [address] [place] [address] Dr. Dione Johnson Creatinine [Mass/Vol] 0.64 mg/dL Normal 0.55-1.02 [facility] Comment on above: Performed By: #### M G, BMP #### [facility] [address] [place] [address] Dr. Dione Johnson EGFR-AF [place] >60 Normal >=60 [facility] Comment on above: Performed By: #### M G, BMP #### [facility] [address] [place] [address] Dr. Dione Johnson EGFR-NON AF [place] >60 Normal >=60 [facility] Comment on above: Performed By: #### M G, BMP #### [facility] [address] [place] [address] Dr. Dione Johnson Glucose [Mass/Vol] 141 mg/dL Critically high 74-106 [facility] Comment on above: Performed By: #### M G, BMP #### [facility] [address] [place] [address] Dr. Dione Johnson Potassium [Moles/Vol] 4.0 mmol/L Normal 3.5-5.1 [facility] Comment on above: Performed By: #### M G, BMP #### [facility] [address] [place] [address] Dr. Dione Johnson Sodium [Moles/Vol] 128 mmol/L Critically low 136-145 [facility] Comment on above: Performed By: #### M G, BMP #### [facility] [address] [place] [address] Dr. Dione Johnson Urea nitrogen [Mass/Vol] 10.0 mg/dL Normal 7.0-18.0 [facility] Comment on above: Performed By: #### M G, BMP #### [facility] [address] [place] [address] Dr. Dione Johnson Urea nitrogen/Creatinine [Mass ratio] 15.6 mg/mg Normal [facility] Comment on above: Performed By: #### M G, BMP #### [facility] [address] [place] [address] Dr. Dione Johnson CBC AUTO DIFFon 10-25-2021 BASO # 0.0 103/ul Normal 0.0-0.1 [facility] Comment on above: Performed By: #### O SMOU #### [facility] [address] [place] [address] Dr. Dione Johnson Basophils/100 WBC (Bld) 0.6 % Normal 0.2-2.0 [facility] Comment on above: Performed By: #### O SMOU #### [facility] [address] [place] [address] Dr. Dione Johnson EO # 0.3 103/ul Normal 0.0-0.7 [facility] Comment on above: Performed By: #### O SMOU #### [facility] [address] [place] [address] Dr. Dione Johnson Eosinophils/100 WBC (Bld) 4.1 % Normal 0.9-7.0 [facility] Comment on above: Performed By: #### O SMOU #### [facility] [address] [place] [address] Dr. Dione Johnson Erythrocyte distribution width (RBC) [Ratio] 13.2 % Normal 11.0-15.0 [facility] Comment on above: Performed By: #### O SMOU #### [facility] [address] [place] [address] Dr. Dione Johnson Hematocrit (Bld) [Volume fraction] 38.1 % Normal 36.0-48.0 [facility] Comment on above: Performed By: #### O SMOU #### [facility] [address] [place] [address] Dr. Dione Johnson Hemoglobin (Bld) [Mass/Vol] 13.0 g/dL Normal 12.0-16.0 [facility] Comment on above: Performed By: #### O SMOU #### [facility] [address] [place] [address] Dr. Dione Johnson IG # 0.11 10e3/ul Critically high 0.00-0.03 [facility] Comment on above: Performed By: #### O SMOU #### [facility] [address] [place] [address] Dr. Dione Johnson IG % 1.6 % Critically high 0.0-0.5 [facility] Comment on above: Performed By: #### O SMOU #### [facility] [address] [place] [address] Dr. Dione Johnson LYMPH # 2.2 103/ul Normal 1.2-3.8 [facility] Comment on above: Performed By: #### O SMOU #### [facility] [address] [place] [address] Dr. Dione Johnson Lymphocytes/100 WBC (Bld) 31.1 % Normal 20.5-60.0 [facility] Comment on above: Performed By: #### O SMOU #### [facility] [address] [place] [address] Dr. Dione Johnson MANUAL DIFF REQ NO Normal [facility] Comment on above: Performed By: #### O SMOU #### [facility] [address] [place] [address] Dr. Dione Johnson MCH (RBC) [Entitic mass] 31.4 pg Normal 26.7-34.0 [facility] Comment on above: Performed By: #### O SMOU #### [facility] [address] [place] [address] Dr. Dione Johnson MCHC (RBC) [Mass/Vol] 34.1 g/dL Normal 29.9-35.2 [facility] Comment on above: Performed By: #### O SMOU #### [facility] [address] [place] [address] Dr. Dione Johnson MCV (RBC) [Entitic vol] 92.0 fL Normal 81.0-99.0 [facility] Comment on above: Performed By: #### O SMOU #### [facility] [address] [place] [address] Dr. Dione Johnson MONO # 0.9 103/ul Critically high 0.3-0.8 [facility] Comment on above: Performed By: #### O SMOU #### [facility] [address] [place] [address] Dr. Dione Johnson Monocytes/100 WBC (Bld) 13.3 % Critically high 1.7-12. 0 [facility] Comment on above: Performed By: #### O SMOU #### [facility] [address] [place] [address] Dr. Dione Johnson NEUT # 3.5 103/ul Normal 1.4-6.5 [facility] Comment on above: Performed By: #### O SMOU #### [facility] [address] [place] [address] Dr. Dione Johnson Neutrophils/100 WBC (Bld) 49.3 % Normal 43.0-75.0 [facility] Comment on above: Performed By: #### O SMOU #### [facility] [address] [place] [address] Dr. Dione Johnson Platelet mean volume (Bld) [Entitic vol] 10.2 fL Normal 9.5-13.5 [facility] Comment on above: Performed By: #### O SMOU #### [facility] [address] [place] [address] Dr. Dione Johnson PLT 196 103/ul Normal 150-450 [facility] Comment on above: Performed By: #### O SMOU #### [facility] [address] [place] [address] Dr. Dione Johnson RBC 4.14 106/ul Critically low 4.20-5.40 [facility] Comment on above: Performed By: #### O SMOU #### [facility] [address] [address] [address] Dione Johnson WBC 7.1 103/ul Normal 4.0-11.0 [facility] Comment on above: Performed By: #### O SMOU #### [facility] [address] [place] [address] Dr. Dione Johnson Covid-19 PCR ([facility])on 10-13 SARS-CoV-2 (COVID-19) RNA LAURA+probe Ql (Unsp spec) Detected Critically abnormal NOT DETECTED [facility] Comment on above: Result Comment: This test is not yet approved or cleared by the [place] FDA. When there are no FDA-approved or cleared tests available, and other criteria are met, FDA can make tests available under an emergency access mechanism called an Emergency Use Authorization (EUA). The EUA for this test is supported by the [place] of Health and Human Service's declaration that circumstances exist to justify the emergency use of in vitro diagnostics for the detection and/or diagnosis of the virus that causes COVID-19. This EUA will remain in effect for the duration of the COVID-19 declaration justifying emergency of IVDs, unless it is terminated or revoked by the FDA (after which the test may no longer be used). Performed By: #### C VDTBH #### [facility] [address] [place] [address] Dr. Dione Johnson MAGNESIUMon 10-25-2021 Magnesium [Mass/Vol] 2.1 mg/dL Normal 1.8-2.4 [facility] Comment on above: Performed By: #### B MP, MG #### [facility] [address] [place] [address] Dr. Dione Johnson NAon 10-25-2021 Sodium [Moles/Vol] 125 mmol/L Critically low 136-145 [facility] Comment on above: Performed By: #### O SMOU #### [facility] [address] [place] [address] Dr. Dione Johnson Sodium [Moles/Vol] 124 mmol/L Critically low 136-145 [facility] Comment on above: Performed By: #### O SMOU #### [facility] [address] [place] [address] Dr. Dione Johnson PROF CHEM 8 (BAS METB)on Anion gap [Moles/Vol] 10.1 mmol/L Normal [facility] Comment on above: Performed By: #### B MP, MG #### [facility] [address] [place] [address] Dr. Dione Johnson Calcium [Mass/Vol] 8.8 mg/dL Normal 8.5-10.1 [facility] Comment on above: Performed By: #### B MP, MG #### [facility] [address] [place] [address] Dr. Dione Johnson Chloride [Moles/Vol] 89 mmol/L Critically low 98-107 [facility] Comment on above: Performed By: #### B MP, MG #### [facility] [address] [place] [address] Dr. Dione Johnson CO2 [Moles/Vol] 30.3 mmol/L Normal 21.0-32.0 [facility] Comment on above: Performed By: #### B MP, MG #### [facility] [address] [place] [address] Dr. Dione Johnson Creatinine [Mass/Vol] 0.63 mg/dL Normal 0.55-1.02 [facility] Comment on above: Performed By: #### B MP, MG #### [facility] [address] [place] [address] Dr. Dione Johnson EGFR-AF [place]IZ[place] >60 Normal >=60 [facility] Comment on above: Performed By: #### B MP, MG #### [facility] [address] [place] [address] Dr. Dione Johnson EGFR-NON AF [place] >60 Normal >=60 [facility] Comment on above: Performed By: #### B MP, MG #### [facility] [address] [place] [address] Dr. Dione Johnson Glucose [Mass/Vol] 99 mg/dL Normal 74-106 [facility] Comment on above: Performed By: #### B MP, MG #### [facility] [address] [place] [address] Dr. Dione Johnson Potassium [Moles/Vol] 3.4 mmol/L Critically low 3.5-5.1 [facility] Comment on above: Performed By: #### B MP, MG #### [facility] [address] [place] [address] Dr. Dione Johnson Sodium [Moles/Vol] 126 mmol/L Critically low 136-145 [facility] Comment on above: Performed By: #### B MP, MG #### [facility] [address] [place] [address] Dr. Dione Johnson Urea nitrogen [Mass/Vol] 5.0 mg/dL Critically low 7.0-18. 0 [facility] Comment on above: Performed By: #### B MP, MG #### [facility] [address] [place] [address] Dr. Dione Johnson Urea nitrogen/Creatinine [Mass ratio] 7.9 mg/mg Normal [facility] Comment on above: Performed By: #### B MP, MG #### [facility] [address] [place] [address] Dr. Dione Johnson CBC AUTO DIFFon 10-24-2021 BASO # 0.0 103/ul Normal 0.0-0.1 [facility] Comment on above: Performed By: #### C BC #### [facility] [address] [place] [address] Dr. Dione Johnson Basophils/100 WBC (Bld) 0.3 % Normal 0.2-2.0 [facility] Comment on above: Performed By: #### C BC #### [facility] [address] [address] [address] Dione Johnson EO # 0.1 103/ul Normal 0.0-0.7 [facility] Comment on above: Performed By: #### C BC #### [facility] [address] [place] [address] Dr. Dione Johnson Eosinophils/100 WBC (Bld) 0.7 % Critically low 0.9-7.0 [facility] Comment on above: Performed By: #### C BC #### [facility] [address] [place] [address] Dr. Dione Johnson Erythrocyte distribution width (RBC) [Ratio] 13.2 % Normal 11.0-15.0 [facility] Comment on above: Performed By: #### C BC #### [facility] [address] [place] [address] Dr. Dione Johnson Hematocrit (Bld) [Volume fraction] 36.4 % Normal 36.0-48.0 [facility] Comment on above: Performed By: #### C BC #### [facility] [address] [place] [address] Dr. Dione Johnson Hemoglobin (Bld) [Mass/Vol] 12.8 g/dL Normal 12.0-16.0 [facility] Comment on above: Performed By: #### C BC #### [facility] [address] [place] [address] Dr. Dione Johnson IG # 0.10 10e3/ul Critically high 0.00-0.03 [facility] Comment on above: Performed By: #### C BC #### [facility] [address] [place] [address] Dr. Dione Johnson IG % 1.0 % Critically high 0.0-0.5 [facility] Comment on above: Performed By: #### C BC #### [facility] [address] [place] [address] Dr. Dione Johnson LYMPH # 2.0 103/ul Normal 1.2-3.8 [facility] Comment on above: Performed By: #### C BC #### [facility] [address] [place] [address] Dr. Dione Johnson Lymphocytes/100 WBC (Bld) 20.9 % Normal 20.5-60.0 [facility] Comment on above: Performed By: #### C BC #### [facility] [address] [place] [address] Dr. Dione Johnson MANUAL DIFF REQ NO Normal [facility] Comment on above: Performed By: #### C BC #### [facility] [address] [address] [address] Dione Johnson MCH (RBC) [Entitic mass] 31.6 pg Normal 26.7-34.0 [facility] Comment on above: Performed By: #### C BC #### [facility] [address] [place] [address] Dr. Dione Johnson MCHC (RBC) [Mass/Vol] 35.2 g/dL Normal 29.9-35.2 [facility] Comment on above: Performed By: #### C BC #### [facility] [address] [place] [address] Dr. Dione Johnson MCV (RBC) [Entitic vol] 89.9 fL Normal 81.0-99.0 [facility] Comment on above: Performed By: #### C BC #### [facility] [address] [place] [address] Dr. Dione Johnson MONO # 0.7 103/ul Normal 0.3-0.8 [facility] Comment on above: Performed By: #### C BC #### [facility] [address] [place] [address] Dr. Dione Johnson Monocytes/100 WBC (Bld) 7.6 % Normal 1.7-12.0 [facility] Comment on above: Performed By: #### C BC #### [facility] [address] [place] [address] Dr. Dione Johnson NEUT # 6.8 103/ul Critically high 1.4-6.5 [facility] Comment on above: Performed By: #### C BC #### [facility] [address] [place] [address] Dr. Dione Johnson Neutrophils/100 WBC (Bld) 69.5 % Normal 43.0-75.0 [facility] Comment on above: Performed By: #### C BC #### [facility] [address] [place] [address] Dr. Dione Johnson Platelet mean volume (Bld) [Entitic vol] 10.4 fL Normal 9.5-13.5 [facility] Comment on above: Performed By: #### C BC #### [facility] [address] [place] [address] Dr. Dione Johnson PLT 188 103/ul Normal 150-450 [facility] Comment on above: Performed By: #### C BC #### [facility] [address] [place] [address] Dr. Dione Johnson RBC 4.05 106/ul Critically low 4.20-5.40 [facility] Comment on above: Performed By: #### C BC #### [facility] [address] [place] [address] Dr. Dione Johnson WBC 9.8 103/ul Normal 4.0-11.0 [facility] Comment on above: Performed By: #### C BC #### [facility] [address] [place] [address] Dr. Dione Johnson ER URINE PROFILEon 2 Bilirubin Ql (U) Negative Normal NEGATIVE [facility] Comment on above: Performed By: #### E RUR #### [facility] [address] [place] [address] Dr. Dione Johnson Clarity (U) CLEAR Normal CLEAR [facility] Comment on above: Performed By: #### E RUR #### [facility] [address] [place] [address] Dr. Dione Johnson Color (U) LT. YELLOW Normal YELLOW [facility] Comment on above: Performed By: #### E RUR #### [facility] [address] [place] [address] Dr. Dione Johnson ERUAHD A micrscopic examination will be performed if indicated. Normal [facility] Comment on above: Performed By: #### E RUR #### [facility] [address] [address] [address] Dione Johnson Glucose Ql (U) Negative Normal NEGATIVE [facility] Comment on above: Performed By: #### E RUR #### [facility] [address] [address] [address] Dione Johnson Hemoglobin Ql (U) Negative Normal NEGATIVE [facility] Comment on above: Performed By: #### E RUR #### [facility] [address] [place] [address] Dr. Dione Johnson Ketones Ql (U) Negative Normal NEGATIVE [facility] Comment on above: Performed By: #### E RUR #### [facility] [address] [place] [address] Dr. Dione Johnson LEUKOCYTES Negative Normal NEGATIVE [facility] Comment on above: Performed By: #### E RUR #### [facility] [address] [place] [address] Dr. Dione Johnson Nitrite Ql (U) Negative Normal NEGATIVE [facility] Comment on above: Performed By: #### E RUR #### [facility] [address] [place] [address] Dr. Dione Johnson pH (U) 7.0 [pH] Normal 5-9 [facility] Comment on above: Performed By: #### E RUR #### [facility] [address] [place] [address] Dr. Dione Johnson SPEC GRAVITY 1.010 Normal 1.005-<=1.02 5 [facility] Comment on above: Performed By: #### E RUR #### [facility] [address] [place] [address] Dr. Dione Johnson UA PROTEIN Negative Normal NEGATIVE/ TRACE [facility] Comment on above: Performed By: #### E RUR #### [facility] [address] [place] [address] Dr. Dione Johnson UR MICRO IND NOT INDICATED Normal [facility] Comment on above: Performed By: #### E RUR #### [facility] [address] [place] [address] Dr. Dione Johnson Urobilinogen Qn (U) 0.2 {Mariaa'U}/dL Normal 0.2 - 1. 0 [facility] Comment on above: Performed By: #### E RUR #### [facility] [address] [place] [address] Dr. Dione Johnson PROF 14(COMP METB)on 022 Albumin [Mass/Vol] 3.5 g/dL Normal 3.4-5.0 [facility] Comment on above: Performed By: #### O SMOU #### [facility] [address] [place] [address] Dr. Dione Johnson Albumin/Globulin [Mass ratio] 1.2 {ratio} Normal [facility] Comment on above: Performed By: #### O SMOU #### [facility] [address] [place] [address] Dr. Dione Johnson ALP [Catalytic activity/Vol] 121 U/L Critically high 46-116 [facility] Comment on above: Performed By: #### O SMOU #### [facility] [address] [place] [address] Dr. Dione Johnson ALT [Catalytic activity/Vol] 32 U/L Normal 14-59 [facility] Comment on above: Performed By: #### O SMOU #### [facility] [address] [place] [address] Dr. Dione Johnson Anion gap [Moles/Vol] 10.2 mmol/L Normal [facility] Comment on above: Performed By: #### O SMOU #### [facility] [address] [place] [address] Dr. Dione Johnson AST [Catalytic activity/Vol] 20 U/L Normal 15-37 [facility] Comment on above: Performed By: #### O SMOU #### [facility] [address] [place] [address] Dr. Dione Johnson Bilirubin [Mass/Vol] 0.4 mg/dL Normal 0.2-1.0 [facility] Comment on above: Performed By: #### O SMOU #### [facility] [address] [address] [address] Dione Johnson Calcium [Mass/Vol] 8.6 mg/dL Normal 8.5-10.1 [facility] Comment on above: Performed By: #### O SMOU #### [facility] [address] [address] [address] Dione Johnson Chloride [Moles/Vol] 85 mmol/L Critically low 98-107 [facility] Comment on above: Performed By: #### O SMOU #### [facility] [address] [place] [address] Dr. Dione Johnson CO2 [Moles/Vol] 28.1 mmol/L Normal 21.0-32.0 [facility] Comment on above: Performed By: #### O SMOU #### [facility] [address] [place] [address] Dr. Dione Johnson Creatinine [Mass/Vol] 0.68 mg/dL Normal 0.55-1.02 [facility] Comment on above: Performed By: #### O SMOU #### [facility] [address] [place] [address] Dr. Dione Johnson EGFR-AF [place] >60 Normal >=60 [facility] Comment on above: Performed By: #### O SMOU #### [facility] [address] [place] [address] Dr. Dione Johnson EGFR-NON AF [place] >60 Normal >=60 [facility] Comment on above: Performed By: #### O SMOU #### [facility] [address] [place] [address] Dr. Dione Johnson Globulin (S) [Mass/Vol] 2.9 g/dL Normal [facility] Comment on above: Performed By: #### O SMOU #### [facility] [address] [place] [address] Dr. Dione Johnson Glucose [Mass/Vol] 100 mg/dL Normal 74-106 [facility] Comment on above: Performed By: #### O SMOU #### [facility] [address] [place] [address] Dr. Dione Johnson Potassium [Moles/Vol] 3.3 mmol/L Critically low 3.5-5.1 [facility] Comment on above: Performed By: #### O SMOU #### [facility] [address] [address] [address] Dione Johnson Protein [Mass/Vol] 6.4 g/dL Normal 6.4-8.2 [facility] Comment on above: Performed By: #### O SMOU #### [facility] [address] [address] [address] Dione Johnson Sodium [Moles/Vol] 120 mmol/L Critically low 136-145 [facility] Comment on above: Performed By: #### O SMOU #### [facility] [address] [place] [address] Dr. Dione Johnson Urea nitrogen [Mass/Vol] 9.0 mg/dL Normal 7.0-18.0 [facility] Comment on above: Performed By: #### O SMOU #### [facility] [address] [place] [address] Dr. Dione Johnson Urea nitrogen/Creatinine [Mass ratio] 13.2 mg/mg Normal [facility] Comment on above: Performed By: #### O SMOU #### [facility] [address] [place] [address] Dr. Dione Johnson TROPONIN, HIGH SENSITIVITYon 10-24-2021 HSTROP 11.1 pg/mL Normal 4.0-51.3 [facility] Comment on above: Result Comment: CUT- OFF POINTS HAVE BEEN ESTABLISHED BASED ON THE FOURTH UNIVERSAL DEFINITIONS OF MYOCARDIAL INFARCTION. THE UPPER REFERENCE LIMIT (URL) OF TROPONIN, DEFINED THE 99TH PERCENTILE OF cTnI DISTRIBUTION IN A REFERENCE POPULATION, HAS BEEN CONFIRMED THE DECISION THRESHOLD FOR GA DIAGNOSIS. Performed By: #### H STROPN #### [facility] [address] [place] [address] Dr. Dione Johnson XR CHEST 1 Von 10-24-2021 XR CHEST 1 V EXAMINATION: XR CHEST 1 V HISTORY: SHORTNESS OF BREATH , weakness, headache COMPARISON: No relevant comparison available. FINDINGS: LUNGS: Calcified nodule within lateral right midlung. No acute infiltrates. VASCULATURE: No increased pulmonary vasculature. PLEURA: No pneumothorax, effusion, or pleural thickening. CARDIAC: No cardiomegaly or cardiac silhouette abnormality. MEDIASTINUM: No visible mass or adenopathy. BONES: No fracture or visible bone lesion. OTHER: Negative. IMPRESSION: 1. No acute cardiopulmonary process. Electronically authenticated by: ABDULLAHI KEVIN Date: 2021-10-24 17:52 Normal [facility] Vital Signs Date Time Vital Sign Value Performing Clinician Facility 04-07-2024 10:41-0500 Body mass index (BMI) [Ratio] 30 kg/m2 Narendra Al MD Work Phone: [facility] 04-07-2024 10:41-0500 Body temperature 98.29 [degF] Narendra Al MD Work Phone: [facility] 04-07-2024 10:41-0500 Body weight 74.39 kg Narendra Al MD Work Phone: [facility] 04-07-2024 10:41-0500 Diastolic blood pressure 64 mm[Hg] Narendra Al MD Work Phone: [facility] 04-07-2024 10:41-0500 Heart rate 56 /min Narendra Al MD Work Phone: [facility] 04-07-2024 10:41-0500 SaO2% (BldA) [Mass fraction] 93 % Narendra Al MD Work Phone: [facility] 04-07-2024 10:41-0500 Systolic blood pressure 130 mm[Hg] Narendra Al MD Work Phone: [facility] 01-17-2024 13:09-0500 Body height 157.48 cm PHYSICIAN NO [facility] 01-17-2024 13:09-0500 Body mass index (BMI) [Ratio] 29.2 kg/m2 PHYSICIAN NO [facility] 01-17-2024 13:09-0500 Body weight 72.57 kg PHYSICIAN NO [facility] 01-17-2024 13:09-0500 Diastolic blood pressure 70 mm[Hg] PHYSICIAN NO [facility] 01-17-2024 13:09-0500 Heart rate 64 /min PHYSICIAN NO [facility] 01-17-2024 13:09-0500 Systolic blood pressure 160 mm[Hg] PHYSICIAN NO [facility] 10-04-2022 13:15-0400 Body height 160.02 cm Callum Chua Other [email or web address] Other 10-04-2022 13:15-0400 Body mass index (BMI) [Ratio] 27.1 kg/m2 Callum Chua Other [email or web address] [facility] [employer] Other 10-04-2022 13:15-0400 Body weight 69.4 kg Callum Reavesy Other [email or web address] [facility] [employer] Other 10-04-2022 13:15-0400 Diastolic blood pressure 69 mm[Hg] Callum Dichrisy Other [email or web address] [facility] [employer] Other 10-04-2022 13:15-0400 Systolic blood pressure 178 mm[Hg] Callum Dichrisy Other [email or web address] [facility] [employer] Other 06-22-2021 14:30-0400 Body height 160.02 cm Callum Chua Other [email or web address] [facility] [employer] Other 06-22-2021 14:30-0400 Body mass index (BMI) [Ratio] 25.33 kg/m2 Callum Daleytty Other [email or web address] [facility] [employer] Other 06-22-2021 14:30-0400 Body weight 64.86 kg Callum Reavesy Other [email or web address] [facility] [employer] Other 06-22-2021 14:30-0400 Diastolic blood pressure 81 mm[Hg] Callum Chua Other [email or web address] [facility] [employer] Other 06-22-2021 14:30-0400 Systolic blood pressure 155 mm[Hg] Callum Chua Other [email or web address] [facility] [employer] Other 04-28-2021 15:45-0400 Body height 160.02 cm Callum Chua Other [email or web address] [facility] [employer] Other 04-28-2021 15:45-0400 Body mass index (BMI) [Ratio] 26.04 kg/m2 Callum Chua Other [email or web address] [facility] [employer] Other 04-28-2021 15:45-0400 Body weight 66.68 kg Callum Chua Other [email or web address] [facility] [employer] Other Encounters Encounter Date Encounter Type Care Provider Facility Start: 04-07-2024 End: 04-07-2024 Bamboo flowsheet Narendra Al MD Work Phone: [facility] Start: 04-07-2024 End: 04-07-2024 [employer] flowsheet Narendra Al MD Work Phone: [facility] Start: 04-07-2024 End: 04-07-2024 Office outpatient visit 25 minutes Narendra Al MD Work Phone: [facility] Comment on above: Essential hypertensi on, benign (CMS/HCC) (Primary Dx); Polymyalgia rheumatica (CMS/HCC); Acute bronchitis due to other specified organisms; Breast cancer screening by mammogram Start: 04-07-2024 End: 04-07-2024 ambulatory NARENDRA AL Not Available Start: 03-10-2024 End: 03-10-2024 Patient encounter procedure PHYSICIAN [facility] [address] Work Phone: Start: 03-10-2024 End: 03-10-2024 ambulatory PHYSICIAN NO [facility] Work Phone: Start: 01-17-2024 End: 01-17-2024 Patient encounter procedure PHYSICIAN NO [facility] Work Phone: Start: 12-20-2023 End: 12-20-2023 Patient encounter procedure PHYSICIAN NO [facility] [address] Work Phone: Start: 12-20-2023 End: 12-20-2023 ambulatory PHYSICIAN NO [facility] Work Phone: Start: 10-01-2023 End: 10-01-2023 ambulatory NARENDRA AL Not Available Start: 08-02-2023 End: 08-02-2023 ambulatory NARENDRA AL Not Available Start: 08-02-2023 Patient encounter procedure Narendra Al MD Work Phone: [facility] Start: 07-05-2023 End: 07-05-2023 ambulatory NARENDRA AL Not Available Start: 10-04-2022 End: 10-04-2022 ambulatory Callum Chua Other [email or web address] [facility] [employer] Other Start: 10-04-2022 Patient encounter procedure Callum Chua [facility] Start: 11-09-2021 End: 11-10-[address] NARENDRA AL Facility:[facility] Start: 10-24-2021 End: 10-26-2021 Evaluation and management of inpatient DR NARENDRA AL Facility:[facility] Start: 06-22-2021 End: 06-22-2021 ambulatory Callum Chua Other [email or web address] [facility] [employer] Other Start: 06-22-2021 Patient encounter procedure Callum Chua [facility] Start: 05-19-2021 End: 05-19-2021 ambulatory Callum Chua Other [email or web address] [facility] [employer] Other Start: 05-19-2021 Telephone encounter Callum Chua [facility] Start: 04-28-2021 End: 04-28-2021 ambulatory Callum Chua Other [email or web address] [facility] [employer] Other Start: 04-28-2021 Patient encounter procedure Callum Chua [facility] Procedures Date Procedure Procedure Detail Performing Clinician Start: 12-20-2023 Plain X-ray of bilat eral hands PHYSICIAN NO FAMILY Start: 11-28-2022 Mammography Narendra berumen MD Work Phone: Start: 12-13-2017 Colonoscopy Narendra berumen MD Work Phone: Plan of Treatment Date Care Activity Detail Author Start: 12-14-2027 Screening for malign ant neoplasm of colon [facility] Start: 09-30-2024 End: 09-30-2024 Patient encounter procedure 09/30/2024 11:00 AM EDT Office Visit [facility] [address] [place] [phone] Narendra Al MD [address] [place] [address] [facility] Start: 08-01-2024 Medicare Annual Wellness (AWV) Medicare Annual Wellness (AWV) [facility] Start: 04-07-2024 End: 06-05-2025 MG Breast - bilateral Screening Bilateral screening mammogram Imaging Routine Breast cancer screening by mammogram Expected: 04/07/2024, Expires: 06/05/2025 [facility] Work Phone: Comment on above: Expected: 04/07/2024 , Expires: 06/05/2025 Start: 04-07-2024 End: 04-07-2024 Patient encounter procedure 04/07/2024 10:45 AM EST Office Visit [facility] [address] [place] [phone] Narendra Al MD [address] [place] [phone] Arrived [facility] Comment on above: Arrived Start: 12-20-2023 [facility] Start: 11-29-2023 Screening for malign ant neoplasm of breast Mammogram [facility] Start: 10-14-2023 Influenza vaccination Influenza Vacc ine (#1) [facility] Start: 01-31-2020 Pneumococcal Vaccine : 65+ Years (1 of 1 - PCV) Pneumococcal Vaccine: 65+ Years (1 of 1 - PCV) [facility] Start: 1955 Screening for malign ant neoplasm of colon [facility] Payers Date Payer Category Payer Medicare (Managed Care) [employer] Member Subscriber Plan / Payer (Effective 2024-Present) Name: Tiffany Maurer Relation to Subscriber: Self Name: Tiffany Maurer Payer ID: Not on file Type: Not on file Address: [place] [id number] 2024 Unknown [id number] 2023 Self-pay 1959 Medicare [id number] 1959 Unknown [id number] 1955 Unknown [id number] 1955 Unknown [id number] 593 1955 Unknown [id number] 1259 1955 Unknown [id number] 1259 1955 Unknown [id number]. 1259 1955 Unknown [id number] 1259 Unknown [id number] 531 Unknown [id number] 531 Social History Date Type Detail Facility Unknown if ever smoked [email or web address] [facility] [email or web address] Other Start: 07-04-2023 End: 08-02-2023 Sex Assigned At [facility] Start: 01-08-2018 Tobacco smoking stat [facility] Never smoked tobacco (finding) [facility] Start: 12-21-2023 End: 03-11-2024 Sex Female (finding) [facility] Start: 1955 Sex Assigned At Female F [facility] Start: 01-25-2023 Tobacco smoking stat [facility] Ex-smoker [facility] Start: 02-12-1975 End: 02-12-2015 History of tobacco use Current smoker [facility] Start: 02-12-1975 End: 02-12-2015 History of tobacco use Cigarette Smoker [facility] Start: 01-25-2023 End: 07-04-2023 Cigarettes smoked current (pack per day) - Reported 1 [facility] Start: 01-25-2023 Tobacco use and exposure Smokeless tobacco non-user [facility] Start: 10-01-2023 End: 04-07-2024 Alcoholic beverage intake Lifetime non-drinker (finding) [facility] How often do you get together with friends or relatives? Patient declined [facility] Are you now , , , , never or living with a partner? [facility] How often to you hav e a drink containing alcohol? 2-4 times a month [facility] How many standard drinks containing alcohol do you have on a typical day? 1 or 2 [facility] How often do you hav e 6 or more drinks on 1 occasion? Never [facility] How hard is it for y ou to pay for the very basics like food, housing, medical care, and heating Not very hard [facility] Do you feel stress - tense, restless, nervous, or anxious, or unable to sleep at night because your mind is troubled all the time - these days [OSQ] Not at all [facility] (I/We) worried wheth er (my/our) food would run out before (I/we) got money to buy more. Never true [facility] In the past 12 month s, was there a time when you were not able to pay the mortgage or rent on time? No [facility] Start: 1955 Sex assigned at Not on file [facility] History of Present illness Narrative 04-07-2024 Narendra Al MD - 04/07/2024 11:16 AM Indra Al MD - 04/07/2024 11:16 AM Indra Al MD - 04/07/2024 11:15 AM Indra Al MD - 04/07/2024 10:45 AM EST Note Date & Type Note Facility 04-07-2024 History of Presen t illness Narrative Associated Problem(s): Polymyalgia rheumatica (CMS/HCC) Pain stable and follow with rheumatology. Associated Problem(s): Essential hypertension, benign (CMS/HCC) BP controlled and monitor PRN. Discussed DASH diet. Associated Problem(s): Acute bronchitis due to other specified organisms Take antibiotics for 7 days. Use prednisone for inflammation. Use sudafed or other decongestants as needed. Use Robitussin or Robitussin-DM for cough. Can use afrin for congestion but no longer than 3 days. Can use Mucinex to bring up phlegm. Use Motrin or Tylenol as needed for fever, aches, or pains. Increase fluid intake and rest. Should improve over next 5-7 days and if no better or worse call for re-evaluation. Images from the original note were not included. Subjective Patient ID: Tiffany Maurer is a 69 y.o. female who presents for No chief complaint on file.. Follow up HTN and PMR. Checking BP PRN and typically controlled. BP normal today. Taking medication daily and tolerating without side effects. Seen by rheumatology for PMR and weaning prednisone. Taking 5 mg and 10 mg every other day. Attempting to wean. C/o cough, congestion, and rhinorrhea x 3 weeks. Afebrile. Severe fatigue and no energy. Frequent cough productive green sputum. Chest tight and SOB. ALVARADO and sinus pressure in forehead and cheeks along with postnasal drip. Ears plugged and popping. Sore throat and pain to swallow. Mild nausea. Denies recent sick contacts. Using OTC medication and mild relief. Treated with cefdinir 03/26. Slight improvement in symptoms since onset. Review of Systems Respiratory: Positive for cough, shortness of breath and wheezing. Cardiovascular: Negative for chest pain and palpitations. Gastrointestinal: Negative for abdominal pain, diarrhea, nausea and vomiting. Genitourinary: Negative for dysuria. Objective Physical Exam Constitutional: General: She is not in acute distress. Appearance: Normal appearance. HENT: Head: Normocephalic. Right Ear: Tympanic membrane normal. Left Ear: Tympanic membrane normal. Eyes: Extraocular Movements: Extraocular movements intact. Pupils: Pupils are equal, round, and reactive to light. Cardiovascular: Rate and Rhythm: Normal rate and regular rhythm. Heart sounds: No murmur heard. No friction rub. No gallop. Pulmonary: Effort: Pulmonary effort is normal. Breath sounds: Normal breath sounds. No wheezing, rhonchi or rales. Abdominal: General: Bowel sounds are normal. There is no distension. Palpations: Abdomen is soft. Tenderness: There is no abdominal tenderness. There is no guarding or rebound. Musculoskeletal: Cervical back: Neck supple. Right lower leg: No edema. Left lower leg: No edema. Neurological: Mental Status: She is alert. Assessment/Plan Problem List Items Addressed This Visit Essential hypertension, benign (CMS/HCC) - Primary BP controlled and monitor PRN. Discussed DASH diet. Polymyalgia rheumatica (CMS/HCC) Pain stable and follow with rheumatology. Acute bronchitis due to other specified organisms Take antibiotics for 7 days. Use prednisone for inflammation. Use sudafed or other decongestants as needed. Use Robitussin or Robitussin-DM for cough. Can use afrin for congestion but no longer than 3 days. Can use Mucinex to bring up phlegm. Use Motrin or Tylenol as needed for fever, aches, or pains. Increase fluid intake and rest. Should improve over next 5-7 days and if no better or worse call for re-evaluation. Relevant Medications levoFLOXacin (Levaquin) 750 MG tablet predniSONE (Deltasone) 50 MG tablet albuterol HFA 90 mcg/act inhaler Other Visit Diagnoses Breast cancer screening by mammogram Relevant Orders Bilateral screening mammogram documented in this encounter [facility] Evaluation note 01-17-2024 Note Date & Type Note Facility 01-17-2024 Evaluation note Diagnosis Onset Date Resolution Microscopic colitis acute Decem 2023 1:00pm [facility] Work Phone: Evaluation note 10-04-2022 Note Date & Type Note Facility 10-04-2022 Evaluation note Encounter Date Diagnosis Assessment Notes Sep, Irritable bowel syndrome with diarrhea (ICD-10 - K58.0) Sep, Microscopic colitis (ICD-10 - K52.839) Patient has been doing well with no complaints of watery diarrhea or any cramping. Patient can stay on the medication as she needs to control any flares. Will send in refills for patient for 1 year. [email or web address] [facility] [employer] Other Evaluation note 06-22-2021 Note Date & Type Note Facility 06-22-2021 Evaluation note Encounter Date Diagnosis Assessment Notes June, Microscopic colitis (ICD-10 - K52.839) RTO 1 YR June, Irritable bowel syndrome with diarrhea (ICD-10 - K58.0) [email or web address] [facility] [employer] Other Evaluation note 04-28-2021 Note Date & Type Note Facility 04-28-2021 Evaluation note Encounter Date Diagnosis Assessment Notes Apr, Microscopic colitis (ICD-10 - K52.839) Srop Budesonide Follow up in 6-8 weeks [email or web address] [facility] [email or web address] Other Evaluation note Note Date & Type Note Facility Evaluation note No Information [employer] Other Evaluation note Note Date & Type Note Facility Evaluation note No assessment information murphy [facility] Work Phone: Evaluation note Note Date & Type Note Facility Evaluation note Diagnosis Essential hypertension, benign (CMS/HCC)- Primary Essential hypertension, benign Myalgia- Primary Unspecified myalgia and myositis Arthralgia of both hands Essential hypertension, benign (CMS/HCC) Essential hypertension, benign Encounter for long-term (current) use of medications Encounter for long-term (current) use of other medications Medicare annual wellness visit, subsequent- Primary Polymyalgia rheumatica (CMS/HCC) Polymyalgia rheumatica Essential hypertension, benign (CMS/HCC)- Primary Essential hypertension, benign Polymyalgia rheumatica (CMS/HCC) Polymyalgia rheumatica Essential hypertension, benign (CMS/HCC)- Primary Essential hypertension, benign Polymyalgia rheumatica (CMS/HCC) Polymyalgia rheumatica Acute bronchitis due to other specified organisms Breast cancer screening by mammogram documented in this encounter [facility] History general Narrative - Reported Note Date & Type Note Facility History general Narrative - Reported Type Hospitalization History covid [email or web address] [facility] [email or web address] Other Summary Purpose Family History No Family History Records Found Relationship Condition Age at Onset Recorded Date/T gian father Unknown family member Unknown mother Unknown Advance Directives No Advanced Directives Records Found Advance Directive Response Recorded Date/ Time Advance Directives No November 27, 2017 9:55am Chief Complaint and Reason for Visit Chief Complaint Admit Date HAND PAIN/PMR/M25.50/M89.9 December 20, 2023 1:31pm 1 year follow up January 17, 2024 1 :00pm Reason for Visit Admit Date Microscopic colitis January 17, 2024 1 :00pm Additional Source Comments REASON FOR VISIT (unrecogniz ed section and content) PATIENT HERE FOR FOLLOW UP M ICROSCOPIC COLITIS. PATIENT HAS SEEN DR. ELDER IN THE PAST.ClinicalPATIENT HERE FOR 6-8 WEEK FOLLOW UP. PT WAS TO STOP BUDESONIDE AT LAST OFFICE VISIT., PT WAS INSTRUCTED TO START LOPERAMIDE EVERY MORNING VIA TELEPHONE ENCOUNTER.1 year Follow up FOR IBS & MICROSCOPIC COLITIS INFORMATION SOURCE (unrecogn ized section and content) DATE CREATED AUTHOR 07/21/2022 [facility] DATE CREATED AUTHOR AUTHOR'S ORGANIZ ATION 03/21/2024 [facility] DATE CREATED AUTHOR AUTHOR'S ORGANIZ ATION 04/08/2024 [facility] EPIC Care Teams (unrecognized sec tion and content) Team Status: Active Member Role Status Dates PHYSICIAN NO FAMILY Primary Care Provider Active Team Status: Inactive Member Role Status Dates PHYSICIAN NO FAMILY Primary Care Provider Active Start: December 20, 2023 End: December 20, 2023 Steve Healy MD Attending Provider Active St art: December 20, 2023 End: December 20, 2023 Team Status: Inactive Member Role Status Dates PHYSICIAN NO FAMILY Primary Care Provider Active Start: January 17, 2024 End: January 17, 2024 Callum Chua MD Attending Provider Active S tart: January 17, 2024 End: January 17, 2024 Team Status: Inactive Member Role Status Dates PHYSICIAN NO FAMILY Primary Care Provider Active Start: March 10, 2024 End: March 10, 2024 Steve Healy MD Attending Provider Active St art: March 10, 2024 End: March 10, 2024 County Nurse Relationship Specialty Start Date End Date Narendra Al MD [address] [place] [phone] PCP - General Family Medicine 08/02/23 Narendra Al MD [address] [place] [phone] PCP - Medical [facility] 02/13/2402/11 County Nurse Relationship Specialty Start Date End Date Narendra Al MD [address] [place] [phone] PCP - General Family Medicine 08/02/23 Narendra Al MD [address] [place] [phone] PCP - Medical [place] [facility] 02/13/2402/11 Goals (unrecognized section and content) Goals may be documented in a n alternate section FOR RECORDS PERTAINING TO PATIENTS WHO ARE OR HAVE BEEN ENROLLED IN A CHEMICAL DEPENDENCY/SUBSTANCEABUSE PROGRAM, SOME INFORMATION MAY BE OMITTED. This clinical summary was aggregated from multiple sources. Caution should be exercised in using it in the provision of clinical care. This summary normalizes information from multiple sources, and as a consequence, information in this document may materially change the coding, format and clinical context of patient data. In addition, data may be omitted in some cases. CLINICAL DECISIONS SHOULD BE BASED ON THE PRIMARY CLINICAL RECORDS. [facility] [employer] provides no warranty or guarantee of the accuracy or completeness of information in this document.
== END 2024-04-23 12:46 | disposition home or self-care (01) ==
LOC: MAMMO 12:45
PROVIDERS: PCP Family Medicine; Visit Provider Family Medicine
DX: Z12.31 Encounter for screening mammogram for malignant neoplasm of breast (principal); Z80.6 Family history of leukemia; Z80.8 Family history of malignant neoplasm of other organs or systems
CPT/HCPCS: 77063; 77067

== ENCOUNTER 2024-10-09 13:10 | Outpatient (OUT) | payer MEDICARE, SELFPAY ==
--- OUTSIDE RECORDS SUMMARY | 2024-09-30 11:00 | XMS_ITS | Encounter Summary ---
Author Organization [facility] Address [address] [place] [address] Care Team Providers Care Net Web Developer Name Role Phone Narendra Brasher MD Primary Care Provider Narendra Brasher MD Unavailable Reason for Visit * Reason Comments Medicare Annual Wellness Visit Subsequen t wellness Encounter Details Date Type Department Care Team (Late st Contact Info) Description 09/30/2024 11:00 AM EDT Office Visit [facility] [address] [place] [address] Narendra Brasher MD [address] [place] [phone] Medicare annual wellness visit, subsequent (Primary Dx); Encounter for long-term (current) use of medications; Lipid screening; Fatigue, unspecified type; Essential hypertension, benign ; Former smoker Social History Tobacco Use Types Packs/Day Years Used Date Smoking Tobacco: Former Cigarettes 1 40 1 976 - 2016 Smokeless Tobacco: Never Alcohol Use Standard Drinks/Week Comments Never 0 (1 standard drink = 0.6 oz pur e alcohol) Social Connection and Isolat ion Panel [NHANES] Answer Date Recorded In a typical week, how many times do you talk on the phone with family, friends, or neighbors? More than three times a week 07/04/2023 How often do you get togethe r with friends or relatives? Patient declined 07/04/2023 How often do you attend [facility] or roman catholic services? Patient declined 07/04/2023 Do you belong to any clubs o r organizations such as yazdanism groups, unions, fraternal or athletic groups, or school groups? Patient declined 07/04/2023 How often do you attend meet ings of the clubs or organizations you belong to? Patient declined 07/04/2023 Are you , , di vorced, , never , or living with a partner? 07/04/2023 AUDIT-C Answer Date Recorded Q1: How often do you have a drink containing alc ohol? 2-4 times a month 07/04/2023 Q2: How many drinks containi ng alcohol do you have on a typical day when you are drinking? 1 or 2 07/04/2023 Q3: How often do you have si x or more drinks on one occasion? Never 07/04/2023 Overall Financial Resource Strain (CARDIA) Answe r Date Recorded How hard is it for you to pa y for the very basics like food, housing, medical care, and heating? Not very hard 07/04/2023 PHQ-2 Answer Date Recorded Patient Health Questionnaire-2 Score 0 09/30/2024 [facility] - Occupational Stress Questionnaire Answer Date Recorded Do you feel stress - tense, restless, nervous, or anxious, or unable to sleep at night because your mind is troubled all the time - these days? Not at all 07/04/2023 Exercise Vital Sign Answer Date Recorde d On average, how many days pe r week do you engage in moderate to strenuous exercise (like a brisk walk)? 5 days 07/04/2023 On average, how many minutes do you engage in exercise at this level? 30 min 07/04/2023 Hunger Vital Sign Answer Date Recorded Within the past 12 months, y ou worried that your food would run out before you got the money to buy more. Never true 07/04/19 24 Within the past 12 months, t he food you bought just didn't last and you didn't have money to get more. Never true 07/04/2023 PRAPARE - Transportation Answer Date Re corded In the past 12 months, has l ack of transportation kept you from medical appointments or from getting medications? No 06/13 In the past 12 months, has l ack of transportation kept you from meetings, work, or from getting things needed for daily living? No 07/04/2023 Housing Stability Vital Sign Answer Surinder e Recorded In the last 12 months, was t here a time when you were not able to pay the mortgage or rent on time? No 07/04/2023 In the last 12 months, how many places have you lived? 1 07/04/2023 In the last 12 months, was t here a time when you did not have a steady place to sleep or slept in a [facility] (including now)? No 07/04/2023 Comments Unknown Sex and Gender Information Value Date Recorded Sex Assigned at Not on file Legal Sex Female 7:09 PM EDT Gender Identity Not on file Sexual Orientation Not on file documented as of this encounter Last Filed Vital Signs Vital Sign Reading Time Taken Comments Blood Pressure 126/70 09/30/2024 11:08 AM EDT Pulse 55 09/30/2024 11:08 AM EDT Temperature 36.4 C (97.5 F) 09/30/2024 11:08 AM EDT Respiratory Rate 20 09/30/2024 11:08 AM EDT Oxygen Saturation 91% 09/30/2024 11:08 AM EDT Inhaled Oxygen Concentration - - Weight 74.4 kg (164 lb) 09/30/2024 11:08 AM EDT Height 160 cm (5' 3 ) 09/30/2024 11:08 AM EDT Body Mass Index 29.05 09/30/2024 11:08 AM EDT documented in this encounter Functional Status * Over the past 2 weeks, how often have you been bothered by any of the following problems? Question Answer Date of Assessment Author Little interest or pleasure in doing things Not at all 09/30/2024 11:00 AM EDT Yamile Arshad M A Feeling down, depressed, or hopeless Not at all 09/30/2024 11:00 AM EDT Yamile Arshad M A Patient Health Questionnaire -2 Score 0 09/30/2024 11:00 AM EDT Yamile Arshad M A * Question Answer Date of Assessment Author Trouble falling or staying asleep, or sleeping too much Not at all 09/30/2024 11:00 AM EDT Yamile Arshad MA Feeling tired or having miroslava le energy Not at all 09/30/2024 11:00 AM EDT Yamile Arshad M A Poor appetite or overeating Not at all 09/30/2024 11 :00 AM EDT Yamile Arshad MA Feeling bad about yourself - or that you are a failure or have let yourself or your family down Not at all 09/30/2024 11:00 AM EDT Yamile Wheeler MA Trouble concentrating on thi ngs, such as reading the newspaper or watching television Not at all 09/30/2024 11:00 AM Yamile Craig M A Moving or speaking so slowly that other people could have noticed? Or the opposite - being so fidgety or restless that you have been moving around a lot more than usual. Not at all 09/30/2024 11:00 AM Yamile Craig M A Thoughts that you would be better off or hurting yourself in some way Not at all 09/30/2024 11:00 AM Yamile Craig MA Patient Health Questionnaire -9 Score 0 09/30/2024 11:00 AM Yamile Craig M A documented as of this encounter Progress Notes * Narendra Brasher MD - 09/30/2024 11:27 AM EDTAssociated Problem(s): Former smoker Quit smoking in 2016 and prior 1 PPD x 40 years. Discussed LDCT to screen for lung cancer and patient declined. * Narendra Brasher MD - 09/30/2024 11:27 AM EDTAssociated Problem(s): Medicare annual wellness visit, subsequent Due for labs. Discussed proper diet and regular aerobic exercise. Need aerobic exercise 5-6 days a week for 30 minutes at a time. Smaller portions and limit total calories. Colonoscopy every 10 years. Tetanus every 10 years. Advised not to smoke. * Narendra Brasher MD - 09/30/2024 11:27 AM EDTAssociated Problem(s): Essential hypertension, benign BP controlled and monitor PRN. Discussed DASH diet. * Narendra Brasher MD - 09/30/2024 11:00 AM EDT Images from the original note were not included. Subjective Patient ID: Tiffany Maurer is a 69 y.o. female who presents for Medicare Annual Wellness Visit Subsequent (wellness). Presents for medicare annual wellness visit. Feels well today. Weight unchanged over the past year.Active and tries to walk several days a week. Tries to watch diet and eat healthy. Increased fruitsand vegetables. Smaller portions and limits snacking. Tries to limit total daily calories. Due for labs. Review of Systems Respiratory: Negative for cough, shortness of breath and wheezing. [...] There is no guarding or rebound. Musculoskeletal: General: No swelling or tenderness. Cervical back: Neck supple. Right lower leg: No edema. Left lower leg: No edema. Skin: Findings: No erythema or rash. Neurological: General: No focal deficit present. Mental Status: She is alert and oriented to person, place, and time. Cranial Nerves: No cranial nerve deficit. Motor: No weakness. Gait: Gait normal. Assessment/Plan Problem List Items Addressed This Visit Essential hypertension, benign BP controlled and monitor PRN. Discussed DASH diet. Relevant Medications lisinopril 40 MG tablet Encounter for long-term (current) use of medications Relevant Orders Comprehensive metabolic panel CBC and differential Medicare annual wellness visit, subsequent - Primary Due for labs. Discussed proper diet and regular aerobic exercise. Need aerobic exercise 5-6 days a week for 30 minutes at a time. Smaller portions and limit total calories. Colonoscopy every 10 years. Tetanus every 10 years. Advised not to smoke. Former smoker Quit smoking in 2016 and prior 1 PPD x 40 years. Discussed LDCT to screen for lung cancer and patient declined. Lipid screening Relevant Orders Lipid panel Other Visit Diagnoses Fatigue, unspecified type Relevant Orders TSH documented in this encounter Plan of Treatment Upcoming Encounters Date Type Department Care Team (Late st Contact Info) Description 04/03/2025 11:30 AM EST Office Visit [facility] [address] [place] [address] Narendra Brasher MD [address] [place] [address] Scheduled Orders Name Type Priority Associated Diagnoses Orde r Schedule Comprehensive metabolic panel Lab Routine Encounter for long-term (current) use of medications Expected: 09/30/2024 (Approximate), Expires: 09/30/2025 CBC and differential Lab Routine Encounter for long-term (current) use of medications Expected: 09/30/2024 (Approximate), Expires: 09/30/2025 Lipid panel Lab Routine Lipid screening Expected: 09/30/2024 (Approximate), Expires: 09/30/2025 TSH Lab Routine Fatigue, unspecified type Expected: 09/30/2024 (Approximate), Expires: 09/30/2025 documented as of this encounter Visit Diagnoses Diagnosis Medicare annual wellness visit, subsequent- Primary Encounter for long-term (current) use of medications Encounter for long-term (current) use of other medications Lipid screening Screening for lipoid disorders Fatigue, unspecified type Essential hypertension, benign Essential hypertension, benign Former smoker Personal history of tobacco use, presenting hazards to health documented in this encounter Additional Health Concerns Assessment Noted Time PHQ-9 Depression Total Score: 0 10/01/19 25 11:00 AM EDT documented as of this encounter Care Teams Net Web Developer Relationship Specialty Start Date End Date Narendra Brasher MD [address] [place] [phone] PCP - General Family Medicine 08/02/23 Narendra Brasher MD [address] [place] [phone] PCP - Medical [facility] 02/13/2402/11 documented as of this encounter
--- OUTSIDE RECORDS SUMMARY | 2024-10-09 13:15 | XMS_ITS | Encounter Summary ---
Author Organization [facility] Address [address] [place] [address] Care Team Providers Care Water Rights Specialist Name Role Phone Narendra Brasher MD Primary Care Provider [phone] Narendra Brasher MD Unavailable Encounter Details Date Type Department Care Team (Late st Contact Info) Description 11/26/2023 [facility] [address] [place] [address] Narendra Brasher MD [address] [place] [phone] Social History Tobacco Use Types Packs/Day Years [...] declined 07/04/2023 How often do you attend chur ch or alevism services? Patient declined 07/04/2023 Do you belong to any clubs o r organizations such as hoahaoism groups, unions, fraternal or athletic groups, or [...] Date Recorded Patient Health Questionnaire-2 Score 0 08/02/2023 [facility] [place] [facility] Occupat ional Health - Occupational Stress Questionnaire Answer Date Recorded [...] place to sleep or slept in a alf (including now)? No 07/04/2023 Comments Unknown Sex and Gender Information Value Date Recorded Sex Assigned at Not on file Legal Sex Female 7:09 PM EDT Gender Identity Not on file Sexual Orientation Not on file documented as of this encounter Plan of Treatment Upcoming Encounters Date Type Department Care Team (Late st Contact Info) Description 04/03/2025 11:30 AM EST Office Visit [facility] [address] [place] [address] Narendra Brasher MD [address] [place] [phone] documented as of this encounter Visit Diagnoses Not on filedocumented in this encounter Additional Health Concerns Assessment Noted Time PHQ-9 Depression Total Score: 0 08/02/19 3:00 PM EDT documented as of this encounter Care Teams Water Rights Specialist Relationship Specialty Start Date End Date Narendra Brasher MD [address] [place] [phone] PCP - General Family Medicine 08/02/23 Narendra Brasher MD [address] [place] [phone] PCP - Medical [facility] 02/13/2402/11 documented as of this encounter
--- OUTSIDE RECORDS SUMMARY | 2024-10-09 13:15 | XMS_ITS | Encounter Summary ---
Author Organization [facility] Address [address] [place] [address] Care Team Providers Care Bender Machine Name Role Phone Narendra Brasher MD Primary Care Provider [phone] Narendra Brasher MD Unavailable Encounter Details Date Type Department Care Team (Latest Contact Info) Description 09/25/2024 Travel Social History Tobacco Use Types Packs/Day Years [...] declined 07/04/2023 How often do you attend [facility] or denominational services? Patient declined 07/04/2023 Do you belong to any clubs o r organizations such as roman catholic groups, unions, fraternal or athletic groups, or [...] Date Recorded Patient Health Questionnaire-2 Score 0 09/25/2024 [facility] - Occupational Stress Questionnaire Answer Date Recorded [...] place to sleep or slept in a care home (including now)? No 07/04/2023 Comments Unknown Sex and Gender Information Value Date Recorded Sex Assigned at Not on file Legal Sex Female 7:09 PM EDT Gender Identity Not on file Sexual Orientation Not on file documented as of this encounter Functional Status * Over the past 2 weeks, how often have you been bothered by any of the following problems? Question Answer Date of Assessment Author Patient Health Questionnaire-2 Score 0 09/12 4:31 PM EDT Mychart, Generic * Little interest or pleasure in doing things Answer Date of Assessment Author Not at all 09/25/2024 4:31 PM EDT Mychart, Generic * Feeling down, depressed, or hopeless Answer Date of Assessment Author Not at all 09/25/2024 4:31 PM EDT Mychart, Generic documented as of this encounter Plan of Treatment Upcoming Encounters Date Type Department Care Team (Late st Contact Info) Description 04/03/2025 11:30 AM EST Office Visit [facility] [address] [place] [address] Narendra Brasher MD [address] [place] [phone] documented as of this encounter Visit Diagnoses Not on filedocumented in this encounter Additional Health Concerns Assessment Noted Time PHQ-9 Depression Total Score: 0 08/02/19 24 3:00 PM EDT documented as of this encounter Care Teams Bender Machine Relationship Specialty Start Date End Date Narendra Brasher MD [address] [place] [phone] PCP - General Family Medicine 08/02/23 Narendra Brasher MD [address] [place] [phone] PCP - Medical [place] 02/13/2402/11 documented as of this encounter
--- OUTSIDE RECORDS SUMMARY | 2024-10-09 13:15 | XMS_ITS | Encounter Summary ---
Author Organization [facility] Address [address] [place] [address] Care Team Providers Care Manager Communication Name Role Phone Narendra Brasher MD Primary Care Provider [phone] Narendra Brasher MD Unavailable Reason for Referral * Consultation (Routine) - Closed Specialty Diagnoses / Procedures Referred By Contac t Referred To Contact Rheumatology Diagnoses Polymyalgia rheumatica ([facility]) Procedures [place] OFFICE/OUTPATIENT [facility] 60 MINUTES Narendra Brasher MD [address] [place] [address] Phone: tel: fax: Zachary Hodgson MD [address] [facility] [address] [place] [address] Phone: tel: fax: Referral ID Status Reason Start Date Expiration Date V isits Requested Visits Authorized [id number] Closed Consult and Treat 11/26/2023 05/24/2024 1 1 Reason for Visit * Reason Comments Med Refill Encounter Details Date Type Department Care Team (Late st Contact Info) Description 11/25/2023 Refill [facility] [address] [place] [phone] Narendra Brasher MD [address] [place] [phone] Polyarthralgia (Primary Dx); Polymyalgia rheumatica ([facility]) Social History Tobacco Use Types Packs/Day Years [...] often do you attend chur ch or christianity services? Patient declined 07/04/2023 Do you belong to any clubs o r organizations such as uatsdin groups, unions, fraternal or athletic groups, or [...] Recorded Patient Health Questionnaire-2 Score 0 08/02/2023 [facility] ional Health - Occupational Stress [...] place to sleep or slept in a group home (including now)? No 07/04/2023 Comments Unknown Sex and Gender Information Value Date Recorded Sex Assigned at Not on file Legal Sex Female 7:09 PM EDT Gender Identity Not on file Sexual Orientation Not on file documented as of this encounter Miscellaneous Notes * Telephone Encounter - Narendra Brasher MD - 11/26/2023 3:27 PM EDT Steroid sent. Will start with taper then continue at 10 mg daily. Will refer to rheumatology. * Telephone Encounter - Yamile Arshad MA - 11/26/2023 3:19 PM EDT Patient was off steroid completely for 2 weeks, and it started to flare up again, is requesting another steroid pack. clm documented in this encounter Plan of Treatment Upcoming Encounters Date Type Department Care Team (Late st Contact Info) Description 04/03/2025 11:30 AM EST Office Visit [facility] [address] [place] [address] Narendra Brasher MD [address] [place] [phone] Scheduled Referrals Name Type Priority Associated Diagnoses Order Schedule Ambulatory referral to Rheumatology Outpatient Referral Routine Polymyalgia rheumatica ([facility]) Expected: 11/26/2023 (Approximate), Expires: 05/26/2024 documented as of this encounter Visit Diagnoses Diagnosis Polyarthralgia- Primary Pain in joint, multiple sites Polymyalgia rheumatica ([facility]) Polymyalgia rheumatica documented in this encounter Additional Health Concerns Assessment Noted Time PHQ-9 Depression Total Score: 0 08/02/19 24 3:00 PM EDT documented as of this encounter Care Teams Manager Communication Relationship Specialty Start Date End Date Narendra Brasher MD [address] [place] [phone] PCP - General Family Medicine 08/02/23 Narendra Brasher MD [address] [place] [phone] PCP - Medical [place] 02/13/2402/11 documented as of this encounter
--- OUTSIDE RECORDS SUMMARY | 2024-10-09 13:15 | XMS_ITS | Encounter Summary ---
Author Organization [facility] Address [address] [place] [address] Care Team Providers Care Manager Process Improvement Name Role Phone Narendra Brasher MD Primary Care Provider [phone] Narendra Brasher MD Unavailable Encounter Details Date Type Department Care Team (Late st Contact Info) Description 09/30/2024 Bamboo flowsheet [facility] [address] [place] [address] Narendra Brasher MD [address] [place] [address] Social History Tobacco Use Types Packs/Day Years [...] often do you attend chur ch or hinduism services? Patient declined 07/04/2023 Do you belong to any clubs o r organizations such as moravian groups, unions, fraternal or athletic groups, or [...] Recorded Patient Health Questionnaire-2 Score 0 09/30/2024 [facility] [place] of Occupat ional Health - Occupational Stress [...] place to sleep or slept in a senior living (including now)? No 07/04/2023 Comments Unknown Sex [...] Office Visit [facility] [address] [place] [address] Narendra Brasher MD [address] [place] [phone] documented as of this encounter Visit Diagnoses Not on filedocumented in this encounter Additional Health Concerns Assessment Noted Time PHQ-9 Depression Total Score: 0 10/01/19 11:00 AM EDT documented as of this encounter Care Teams Manager Process Improvement Relationship Specialty Start Date End Date Narendra Brasher MD [address] [place] [phone] PCP - General Family Medicine 08/02/23 Narendra Brasher MD [address] [place] [phone] PCP - Medical [place] 02/13/2402/11 documented as of this encounter
--- OUTSIDE RECORDS SUMMARY | 2024-10-09 13:23 | XMS_ITS | CCD ---
Author Organization [facility] ion Partnership [facility] Clini[employer] Care Team Providers Care Leadership Development Manager Name Role Phone Callum Chua Unavailable SERVANDO, DR NARENDRA Dykes Admitting Unavailable SERVANDO, DR NARENDRA Dykes Primary Care Unavailable SERVANDO, DR NARENDRA Dykes Attending Unavailable AMRIK ., DR SOW Consulting Unavailable MOISES, DR ROLAN Tucker Consulting Unavaildimitrios KEVIN, DR ABDULLAHI Do Consulting Unavailable LENYEREErnestina, DR NARENDRA Dykes Consulting Unavailable KELTON, MICHAEL Consulting Unavailable JAMAL, CARRIE Consulting Unavailable SERVANDO, DR NARENDRA Dykes Primary Care Unavailable NADLUIS, DR NARENDRA Dykes Consulting Unavailable LENYEREErnestina, DR NARENDRA Dykes Attending Unavailable NADLUIS, DR NARENDRA Dykes Admitting Unavailable NO FAMILY, PHYSICIAN Primary Care Provider Unava phyllis Healy MD, Steve Attending Provider Narendra Al MD Primary Care Provider [phone] Servando JOYCE, Narendra Unavailable NARENDRA AL Attending Unavailable SERVANDO, NARENDRA Attending Unavailable SERVANDO, NARENDRA Attending Unavailable SERVANDO, NARENDRA Attending Unavailable Steve Healy Admitting Unavailable Steve Healy Attending Unavailable NO FAMILY, PHYSICIAN Primary Care Unavailable Zachary Hodsgon Admitting Unavailable Zachary Hodgson Attending Unavailable NO FAMILY, PHYSICIAN Primary Care Unavailable Steve Healy Admitting Unavailable Steve Healy Attending Unavailable NO FAMILY, PHYSICIAN Primary Care Unavailable Medications Current Medications Medication Drug Class(es) Dates Sig (Normalized) Sig (Original) [id number] 200 actuat albuterol 0.09 mg/actuat metered dose inhaler (6 sources) beta2-Adrenergic Agonist Start: 04-07-2024 End: 09-30-2024 take 2 puff(s) by inhalation every four hours for wheezing albuterol HFA 90 mcg/act inhaler Indications: Acute bronchitis due to other specified organisms Inhale 2 puffs every 4 (four) hours if needed for shortness of breath or wheezing 18 g 2 04/07/2024 09/30/2024 Discontinued budesonide 3 mg delayed release oral capsule (12 sources) Corticosteroid Start: 01-17-2024 take 1 capsule by mouth once daily Budesonide 3 mg capsule,delayed,ex tend.release Active 3 MG PO Daily January 17, 2024 12:00am Start: 12-11-2017 take 1 capsule by mo [facility] every twenty-four hours Budesonide 3 MG 1 CAPSULE Orally Once a day for 90 days Nov, Active End: 09-30-2024 take 1 capsule by mouth in the morning, then take 3 mg by mouth every twenty-four hours budesonide EC (Entocort EC) 3 MG 24 hr capsule Take 6 mg by mouth in the morning. 09/30/2024 Discontinued cefdinir 300 mg oral capsule (2 sources) [...] 04/07/2024 Discontinued cholecalciferol 0.05 mg oral capsule (7 sources) Vitamin D take 1 capsule by [...] 04/14/2024 Active lisinopril 40 mg oral tablet (15 sources) Angiotensin Converting Enzyme Inhibitor Start: 09-30-2024 take 1 tablet by mouth once daily lisinopril 40 MG tablet Indications: Essential hypertension, benign Take 1 tablet (40 mg) by mouth Daily 90 tablet 3 09/30/2024 Active Start: 09-30-2024 take 1 tablet by david th once daily lisinopril 40 MG tablet Indications: Essential hypertension, benign Take 1 tablet (40 mg) by mouth Daily 90 tablet 3 09/30/2024 Active Start: 11-07-2023 End: 09-30-2024 take 1 tablet by mouth once daily lisinopril 40 MG tablet Indications: Essential (primary) hypertension , Benign essential hypertension TAKE 1 TABLET BY MOUTH EVERY DAY 90 tablet 3 11/07/2023 09/30/2024 Discontinued (Reorder) Start: 11-28-2017 take 1 tablet by david th once daily Lisinopril 20 mg tablet Active 20 MG PO Daily November 27, 2017 11:00pm predniSONE 1 mg oral tablet (11 sources) Start: 09-25-2024 take 2 tablets by mouth once daily predniSONE (Deltasone) 1 MG tablet Take 2 mg by mouth Daily 09/25/2024 Active Start: 04-07-2024 End: 04-13-2024 take 1 tablet by mouth once daily predniSONE (Deltasone) 50 MG tablet Indications: Acute bronchitis due to other specified organisms Take 1 tablet (50 mg) by mouth Daily for 6 days 6 tablet 04/07/2024 04/13/2024 Active Start: 11-26-2023 End: 09-30-2024 predniSONE (Deltasone) 10 MG tablet Indications: Polymyalgia rheumatica (HHS-HCC) TAKE 6 TABS DAILY FOR 3 DAYS,4 TABS FOR 3 DAYS, 2 TABLETS FOR 3 DAYS, THEN 1 TABLET DAILY 60 tablet 1 11/26/2023 09/30/2024 Discontinued Completed/Discontinued Medications Medication Drug Class(es) Dates Sig (Normalized) Sig (Original) hydroCHLOROthiazide 25 mg oral tablet (5 sources) Thiazide Diuretic Start: 8 End: take 1 tablet by mouth once daily Hydrochlorothiazide 25 mg tablet Discontinued 25 MG PO Daily November 27, 2017 11:00pm January 17, 2024 1:10pm Problems Active Problems Problem Classification Problem Date Documented Da te Episodic/Chronic Essential hypertension (12 sources) Essential (primary) hypertension; Translations: [Benign essential hypertension] Onset: 11-01-2021 01-25-2023 Chronic Malaise and fatigue (2 sources) Fatigue; Translations: [Other fatigue] 09-30-2024 Episodic Noninfectious gastroenteritis (9 sources) Microscopic colitis; Translations: [Microscopic colitis, unspecified] Onset: 04-28-2021 Resolved: 06-22-2021 Chronic Noninfectious gastroenteritis (5 sources) Microscopic colitis; Translations: [Other specified noninfective gastroenteritis and colitis] Onset: 11-01-2021 Episodic Nutritional deficiencies (7 sources) Vitamin D deficiency; Translations: [Vitamin D deficiency, unspecified] Onset: 01-25-2023 01-25-2023 Chronic Other aftercare (9 sources) Long-term current use of drug therapy; Translations: [Other ocean transportation intermediary (current) drug therapy] Onset: 07-05-2023 07-05-2023 Episodic Other connective tissue disease (9 sources) Polymyalgia rheumatica; Translations: [Polymyalgia rheumatica] Onset: 07-05-2023 08-02-2023 Chronic Other connective tissue disease (1 source) Polymyalgia rheumatica; Translations: [Polymyalgia rheumatica] Onset: 03-10-2024 Chronic Other gastrointestinal disorders (2 sources) Irritable bowel syndrome with diarrhea; Translations: [Irritable bowel syndrome with diarrhea] Chronic Other gastrointestinal disorders (2 sources) Irritable bowel syndrome with diarrhea Onset: 06-22-2021 Resolved: 06-22-2021 Chronic Other gastrointestinal disorders (4 sources) Diarrhea; Translations: [Diarrhea, unspecified] Episodic Other screening for suspected conditions (not mental disorders or infectious disease) (6 sources) Patient encounter status; Translations: [Encounter for screening mammogram for malignant neoplasm of breast] Onset: 09-30-2024 04-07-2024 Episodic Pancreatic disorders (not diabetes) (4 sources) Exocrine pancreatic insufficiency; Translations: [Exocrine pancreatic insufficiency] Episodic Screening and history of mental health and substance abuse codes (4 sources) Ex-smoker; Translations: [Personal history of nicotine dependence] Onset: 09-30-2024 09-30-2024 Episodic Viral infection (1 source) COVID-19; Translations: [COVID-19] Onset: 11-01-2021 Past or Other Problems Problem Classification Problem Date Documented Da te Episodic/Chronic Acute bronchitis (8 sources) Acute infective bronchitis; Translations: [Acute bronchitis due to other specified organisms] Onset: 04-07-2024 Resolved: 09-30-2024 04-07-2024 Episodic Fluid and electrolyte disorders (5 sources) Hypo-osmolality and hyponatremia; Translations: [Dehydration] Onset: 11-01-2021 Episodic Mood disorders (7 sources) Mood disorders Onset: 08-02-2023 Resolved: 09-30-2024 08-02-2023 Other aftercare (1 source) Other ocean transportation intermediary (current) drug therapy; Translations: [OTH [facility] CURRENT DRUG THERAPY] Onset: 11-01-2021 Episodic Other connective tissue disease (1 source) Pain in left hand; Translations: [Pain in left hand] Onset: 12-20-2023 Episodic Other non-traumatic joint disorders (7 sources) Bilateral pain of joint of hands; Translations: [Pain in joints of right hand] Onset: 07-05-2023 07-05-2023 Episodic Results Test Name Value Interpretation Reference Range Facility C-Reactive Proteinon 025 CRP [Mass/Vol] mg/L Normal 0.0-0.5 [facility] Comment on above: Result Comment: PERF ORMED BY: [place] [address] PATHOLOGIST CHIEF LOCK OPERATOR JAYDEN DUMONT M.D. Performed By: #### E SR, CRP #### [facility] [address] [place] [address] Erythrocyte Sedimentation Ra kale 07-28-2024 ESR (Bld) [Velocity] 4 mm/h Normal 0-29 [facility] Comment on above: Result Comment: PERF ORMED BY: [place] [address] PATHOLOGIST CHIEF LOCK OPERATOR JAYDEN DUMONT M.D. Performed By: #### E SR, CRP #### [facility] [address] [place] [address] MM TOMOSYNTHESIS SCREENING B Ion 04-24-2024 [place] [address] Mammography Report Signed Patient: TIFFANY BALTAZAR MR#: [id number] : 1955 Acct:[id number] Age/Sex: 69 / F ADM Date: 04/23/24 Loc: MAMMO Attending Dr: Narendra Al M.D. Ordering Physician: Narendra Al M.D. Results: Date of Service: 04/23/24 Follow Up: Procedure(s): MM tomosynthesis screening BI Accession Number(s): [id number] cc: Narendra Al M.D. Patient Name: TIFFANY BALTAZAR MR#: [id number] : 1955 Exam Date: 04/23/2024 Ordering Doctor: DR Narendra Johnson RADIOLOGY REPORT PROCEDURE: MM TOMOSYNTHESIS SCREENING BI COMPARISON: MM TOMOSYNTHESIS SCREENING BI, 11/28/2022. MG MAMM SCREEN 3D TRACY CAD, 10/20/2020. MG MAMM SCREEN TRACY W CAD, 07/31/2016. INDICATIONS: Screening Calculator Name NCI Breast Cancer Risk Assessment Tool 5 Year Breast Cancer Risk 3.10% Lifetime Breast Cancer Risk 9.50% Personal Breast Cancer No Personal Ovarian Cancer No Treatments None Family Cancers Mother with leukemia cancer at age 83; Father with brain cancer at age 74. LOCATION: The [facility] BREAST COMPOSITION: There are scattered areas of fibroglandular density. FINDINGS: DIAGNOSTIC CATEGORY 1--NEGATIVE. LEFT BREAST: No significant suspicious finding. RIGHT BREAST: No significant suspicious finding. RECOMMENDATIONS: ROUTINE MAMMOGRAM AND CLINICAL EVALUATION IN 12 MONTHS. PLEASE NOTE: A NORMAL MAMMOGRAM DOES NOT EXCLUDE THE POSSIBILITY OF BREAST CANCER. A CLINICALLY SUSPICIOUS PALPABLE LUMP SHOULD BE BIOPSIED. Dictated by: Josiah Don DO on 04/24/2024 at 09:57 Approved by: Josiah Don DO on 04/24/2024 at 09:58 Dictated By: Josiah Don M.D. Signed By: 04/24/24 0959 DD/ 0958 TD/TT: Campus Ambassador: [facility] Radiology, Radiologist, MD - 04/24/2024 [place] [address] Mammography Report Signed Patient: TIFFANY BALTAZAR MR#: [id number] : 1955 Acct:[id number] Age/Sex: 69 / F ADM Date: 04/23/24 Loc: MAMMO Attending Dr: Narendra Al M.D. Ordering Physician: Narendra Al M.D. Results: Date of Service: 04/23/24 Follow Up: Procedure(s): MM tomosynthesis screening BI Accession Number(s): [id number] cc: Narendra Al M.D. Patient Name: TIFFANY BALTAZAR MR#: [id number] : 1955 Exam Date: 04/23/2024 Ordering Doctor: DR Narendra Al . RADIOLOGY REPORT PROCEDURE: MM TOMOSYNTHESIS SCREENING BI COMPARISON: MM TOMOSYNTHESIS SCREENING BI, 11/28/2022. MG MAMM SCREEN 3D TRACY CAD, 10/20/2020. MG MAMM SCREEN TRACY W CAD, 07/31/2016. INDICATIONS: Screening Calculator Name NCI Breast Cancer Risk Assessment Tool 5 Year Breast Cancer Risk 3.10% Lifetime Breast Cancer Risk 9.50% Personal Breast Cancer No Personal Ovarian Cancer No Treatments None Family Cancers Mother with leukemia cancer at age 83; Father with brain cancer at age 74. LOCATION: [facility] BREAST COMPOSITION: There are scattered areas of fibroglandular density. FINDINGS: DIAGNOSTIC CATEGORY 1--NEGATIVE. LEFT BREAST: No significant suspicious finding. RIGHT BREAST: No significant suspicious finding. RECOMMENDATIONS: ROUTINE MAMMOGRAM AND CLINICAL EVALUATION IN 12 MONTHS. PLEASE NOTE: A NORMAL MAMMOGRAM DOES NOT EXCLUDE THE POSSIBILITY OF BREAST CANCER. A CLINICALLY SUSPICIOUS PALPABLE LUMP SHOULD BE BIOPSIED. Dictated by: Josiah Don DO on 04/24/2024 at 09:57 Approved by: Josiah Don DO on 04/24/2024 at 09:58 Dictated By: Josiah Don M.D. Signed By: 04/24/24 0959 DD/ 0958 TD/TT: Campus Ambassador: [facility] [employer] Radiology Study observation (narrative) [facility] MM TOMOSYNTHESIS SCREENING B IOrdered By: Radiologist Radiology on 04-24-2024 [facility] Work Phone: C reactive protein [Mass/vol ume] in Serum or PlasmaOrdered By: Steve Healy on 03-10-2024 CRP [Mass/Vol] C reactive protein [Mass/volume] in Serum or Plasma 0.0-0.5 [facility] C-Reactive Proteinon 025 CRP [Mass/Vol] mg/L Normal 0.0-0.5 The [facility] Comment on above: Result Comment: PERF ORMED BY: [place] [address] PATHOLOGIST CHIEF LOCK OPERATOR SABRINA SINGER M.D. Performed By: #### E SR, CRP #### [address] Erythrocyte Sedimentation Ra kale 03-10-2024 ESR (Bld) [Velocity] 10 mm/h Normal 0-29 [facility] Comment on above: Result Comment: PERF ORMED BY: [place] [address] PATHOLOGIST CHIEF LOCK OPERATOR SABRINA SINGER M.D. Performed By: #### E SR, CRP #### [address] Erythrocyte sedimentation ra te by Photometric methodOrdered By: Steve Healy on 03-10-2024 ESR Photometric method (Bld) [Velocity] Erythrocyte sedimentation rate by Photometric method 0-29 [facility] LEYDI Antinuclear Antibodieson 12-20-2023 Antinuclear Abs, IFA Negative Normal . [facility] Comment on above: Result Comment: Nega tive <1:80 Borderline 1:80 Positive >1:80 ICAP nomenclature: AC-0 For more information about Hep-2 cell patterns use ANApatterns.org, the official website for the International Consensus on Antinuclear Antibody (LEYDI) Patterns (ICAP). Performed at: - [facility] [id number] Network Technology Instructor: Jaquan Ac PhD, Phone: [phone] PERFORMED BY: [place] [address] PATHOLOGIST CHIEF LOCK OPERATOR JOSE CARLOS CUEVAS M.D. Performed By: #### A NA #### [facility] , #### CK, CRP, CBC, TSH3, ESR, PTH, CMP #### [place] [address] [facility] Alanine aminotransferase [En zymatic activity/volume] in Serum or PlasmaOrdered By: Steve Healy on 12-20-2023 ALT [Catalytic activity/Vol] Alanine aminotransferase [Enzymatic activity/volume] in Serum or Plasma 7-52 [facility] Albumin [Mass/volume] in Ser um or Plasma by Bromocresol green (BCG) dye binding methoOrdered By: Steve Healy on 12-20-2023 Albumin BCG dye [Mass/Vol] Albumin [Mass/volume] in Serum or Plasma by Bromocresol green (BCG) dye binding metho 3.5-5.7 [facility] Alkaline phosphatase [Enzyma tic activity/volume] in Serum or PlasmaOrdered By: Steve Healy on 12-20-2023 ALP [Catalytic activity/Vol] Alkaline phosphatase [Enzymatic activity/volume] in Serum or Plasma 34-104 [facility] Aspartate aminotransferase [ Enzymatic activity/volume] in Serum or PlasmaOrdered By: Steve Healy on 12-20-2023 AST [Catalytic activity/Vol] Aspartate aminotransferase [Enzymatic activity/volume] in Serum or Plasma 13-39 [facility] Basophils Auto (Bld) [#/Vol] Ordered By: Steve Healy on 12-20-2023 Basophils (Bld) [#/Vol] Automated basoph il count 0.0-0.2 [facility] Basophils/100 WBC Auto (Bld) Ordered By: Steve Healy on 12-20-2023 Basophils/100 WBC (Bld) Automated basoph il % . [facility] Bilirubin.total [Mass/volume ] in Serum or PlasmaOrdered By: Steve Healy on 12-20-2023 Bilirubin [Mass/Vol] Bilirubin.total [Mass/volume] in Serum or Plasma 0.3-1.0 [facility] C reactive protein [Mass/vol ume] in Serum or PlasmaOrdered By: Steve Healy on 12-20-2023 CRP [Mass/Vol] C reactive protein [Mass/volume] in Serum or Plasma 0.0-0.5 [facility] C-Reactive Proteinon 024 CRP [Mass/Vol] mg/L Normal 0.0-0.5 [facility] Comment on above: Performed By: #### A NA #### [facility] , #### CK, CRP, CBC, TSH3, ESR, PTH, CMP #### [facility] [address] [place] [address] Calcium [Mass/volume] in Ser um or PlasmaOrdered By: Steve Healy on 12-20-2023 Calcium [Mass/Vol] Calcium [Mass/volume] in Serum or Plasma 8.6-10.3 [facility] Carbon dioxide, total [Moles /volume] in Serum or PlasmaOrdered By: Steve Healy on 12-20-2023 CO2 [Moles/Vol] Carbon dioxide, total [Moles/volume] in Serum or Plasma 21.0-31.0 [facility] Chloride [Moles/volume] in S chloe or PlasmaOrdered By: Steve Healy on 12-20-2023 Chloride [Moles/Vol] Chloride [Moles/volume] in Serum or Plasma 98-107 [facility] Complete Blood Count Auto Di ffon 12-20-2023 Basophils (Bld) [#/Vol] 0.1 10*3/uL Normal 0.0-0.2 [facility] Comment on above: Performed By: #### A NA #### [facility] , #### CK, CRP, CBC, TSH3, ESR, PTH, CMP #### [facility] [address] [place] [address] [place] Basophils/100 WBC (Bld) 1.2 % Normal . T he [facility] Comment on above: Performed By: #### A NA #### [facility] , #### CK, CRP, CBC, TSH3, ESR, PTH, CMP #### [facility] [address] [place] [address] Eosinophils (Bld) [#/Vol] 0.1 10*3/uL Normal 0.0-0.45 [facility] Comment on above: Performed By: #### A NA #### [facility] , #### CK, CRP, CBC, TSH3, ESR, PTH, CMP #### [address] Eosinophils/100 WBC (Bld) 1.2 % Normal . [facility] Comment on above: Performed By: #### A NA #### [facility] , #### CK, CRP, CBC, TSH3, ESR, PTH, CMP #### [address] Erythrocyte distribution width (RBC) [Ratio] 14.5 % Normal 11.9-15.3 The [facility] Comment on above: Performed By: #### A NA #### [facility] , #### CK, CRP, CBC, TSH3, ESR, PTH, CMP #### [address] Hematocrit (Bld) [Volume fraction] 40.6 % Normal 34.0-46.4 [facility] Comment on above: Performed By: #### A NA #### [facility] , #### CK, CRP, CBC, TSH3, ESR, PTH, CMP #### [address] Hemoglobin (Bld) [Mass/Vol] 13.7 g/dL Normal 11.8-15.4 [facility] Comment on above: Performed By: #### A NA #### [facility] , #### CK, CRP, CBC, TSH3, ESR, PTH, CMP #### [address] Lymphocytes (Bld) [#/Vol] 2.6 10*3/uL Normal 1.00-4.8 [facility] Comment on above: Performed By: #### A NA #### [facility] , #### CK, CRP, CBC, TSH3, ESR, PTH, CMP #### [address] Lymphocytes/100 WBC (Bld) 34.1 % Normal . [facility] Comment on above: Performed By: #### A NA #### [facility] , #### CK, CRP, CBC, TSH3, ESR, PTH, CMP #### [address] MCH (RBC) [Entitic mass] 33.4 pg Normal 24.7-34.3 [facility] Comment on above: Performed By: #### A NA #### [facility] , #### CK, CRP, CBC, TSH3, ESR, PTH, CMP #### [address] MCV (RBC) [Entitic vol] 99.2 fL Normal 80-100 [facility] Comment on above: Performed By: #### A NA #### [facility] , #### CK, CRP, CBC, TSH3, ESR, PTH, CMP #### [address] Mean Corpuscular HGB Conc 33.7 g/dL Normal 32.0-35.0 [facility] Comment on above: Performed By: #### A NA #### [facility] , #### CK, CRP, CBC, TSH3, ESR, PTH, CMP #### [address] Monocytes (Bld) [#/Vol] 0.7 10*3/uL Normal 0.0-0.8 [facility] Comment on above: Performed By: #### A NA #### [facility] , #### CK, CRP, CBC, TSH3, ESR, PTH, CMP #### [address] Monocytes/100 WBC (Bld) 9.6 % Normal . [facility] Comment on above: Performed By: #### A NA #### [facility] , #### CK, CRP, CBC, TSH3, ESR, PTH, CMP #### [address] Neutrophils (Bld) [#/Vol] 4.1 10*3/uL Normal 1.8-7.7 [facility] Comment on above: Performed By: #### A NA #### [facility] , #### CK, CRP, CBC, TSH3, ESR, PTH, CMP #### [address] Neutrophils/100 WBC (Bld) 53.9 % Normal . [facility] Comment on above: Performed By: #### A NA #### [facility] , #### CK, CRP, CBC, TSH3, ESR, PTH, CMP #### [address] NRBC% 0.1 /100{WBC} Normal 0-0.5 The [facility] Comment on above: Performed By: #### A NA #### [facility] , #### CK, CRP, CBC, TSH3, ESR, PTH, CMP #### [address] Platelet mean volume (Bld) [Entitic vol] 9.7 fL Normal 6.3-10.7 The [facility] Comment on above: Performed By: #### A NA #### [facility] , #### CK, CRP, CBC, TSH3, ESR, PTH, CMP #### [address] Platelets (Bld) [#/Vol] 190 10*3/uL Normal 150-450 [facility] Comment on above: Performed By: #### A NA #### [facility] , #### CK, CRP, CBC, TSH3, ESR, PTH, CMP #### [address] RBC (Bld) [#/Vol] 4.09 10*6/uL Normal 3.60-5.00 The [facility] Comment on above: Performed By: #### A NA #### [facility] , #### CK, CRP, CBC, TSH3, ESR, PTH, CMP #### [address] WBC (Bld) [#/Vol] 7.6 10*3/uL Normal 3.8-11.6 The [facility] Comment on above: Performed By: #### A NA #### [facility] , #### CK, CRP, CBC, TSH3, ESR, PTH, CMP #### [address] Comprehensive Metabolic Pane [facility] 12-20-2023 Albumin [Mass/Vol] 4.5 g/dL Normal 3.5-5.7 The [facility] Comment on above: Performed By: #### A NA #### [facility] , #### CK, CRP, CBC, TSH3, ESR, PTH, CMP #### [address] Albumin/Globulin [Mass ratio] 2.3 {ratio} Normal [facility] Comment on above: Performed By: #### A NA #### [facility] , #### CK, CRP, CBC, TSH3, ESR, PTH, CMP #### [facility] [address] [place] [address] ALP [Catalytic activity/Vol] 83 U/L Normal 34-104 [facility] Comment on above: Performed By: #### A NA #### [facility] , #### CK, CRP, CBC, TSH3, ESR, PTH, CMP #### [address] ALT [Catalytic activity/Vol] 14 U/L Normal 7-52 [facility] Comment on above: Performed By: #### A NA #### [facility] , #### CK, CRP, CBC, TSH3, ESR, PTH, CMP #### [address] Anion gap [Moles/Vol] 12.0 mmol/L Normal 6.0-15.0 Th [facility] Comment on above: Performed By: #### A NA #### [facility] , #### CK, CRP, CBC, TSH3, ESR, PTH, CMP #### [address] AST [Catalytic activity/Vol] 15 U/L Normal 13-39 [facility] Comment on above: Performed By: #### A NA #### [facility] , #### CK, CRP, CBC, TSH3, ESR, PTH, CMP #### [address] Bilirubin [Mass/Vol] 0.5 mg/dL Normal 0.3-1.0 [facility] Comment on above: Performed By: #### A NA #### [facility] , #### CK, CRP, CBC, TSH3, ESR, PTH, CMP #### [address] Calcium [Mass/Vol] 9.4 mg/dL Normal 8.6-10.3 The [facility] Comment on above: Performed By: #### A NA #### [facility] , #### CK, CRP, CBC, TSH3, ESR, PTH, CMP #### [place] [address] [place] Chloride [Moles/Vol] 101 mmol/L Normal 98-107 [facility] Comment on above: Performed By: #### A NA #### [facility] , #### CK, CRP, CBC, TSH3, ESR, PTH, CMP #### [place] [address] [place] CO2 [Moles/Vol] 27.7 mmol/L Normal 21.0-31.0 The [facility] Comment on above: Performed By: #### A NA #### [facility] , #### CK, CRP, CBC, TSH3, ESR, PTH, CMP #### [address] Creatinine [Mass/Vol] 0.85 mg/dL Normal 0.60-1.20 [facility] Comment on above: Performed By: #### A NA #### [facility] , #### CK, CRP, CBC, TSH3, ESR, PTH, CMP #### [address] GFR/1.73 sq M.predicted MDRD (S/P/Bld) [Vol rate/Area] mL/min/{1.73_m2} Normal [facility] Comment on above: Performed By: #### A NA #### [facility] , #### CK, CRP, CBC, TSH3, ESR, PTH, CMP #### [address] Globulin (S) [Mass/Vol] 2.0 g/dL Normal T [facility] Comment on above: Performed By: #### A NA #### [facility] , #### CK, CRP, CBC, TSH3, ESR, PTH, CMP #### [address] Glucose [Mass/Vol] 87 mg/dL Normal 70-100 [facility] Comment on above: Result Comment: [place] Glucose Reference Range is dependent on time and content of last meal. Glucose of more than 200 mg/dL in a nonstressed, ambulatory subject supports the diagnosis of Diabetes Mellitus. ADA recommended reference range Performed By: #### A NA #### [facility] , #### CK, CRP, CBC, TSH3, ESR, PTH, CMP #### [place] [address] Potassium [Moles/Vol] 4.7 mmol/L Normal 3.5-5.1 [facility] Comment on above: Performed By: #### A NA #### [facility] , #### CK, CRP, CBC, TSH3, ESR, PTH, CMP #### [address] Protein [Mass/Vol] 6.5 g/dL Normal 6.4-8.9 [facility] Comment on above: Performed By: #### A NA #### [facility] , #### CK, CRP, CBC, TSH3, ESR, PTH, CMP #### [address] Sodium [Moles/Vol] 136 mmol/L Normal 136-145 [facility] Comment on above: Performed By: #### A NA #### [facility] , #### CK, CRP, CBC, TSH3, ESR, PTH, CMP #### [address] Urea nitrogen [Mass/Vol] 16 mg/dL Normal 7-25 [facility] Comment on above: Performed By: #### A NA #### [facility] , #### CK, CRP, CBC, TSH3, ESR, PTH, CMP #### [address] Creatine Kinaseon 12-20-2023 CK [Catalytic activity/Vol] 37 U/L Normal 30-223 [facility] Comment on above: Result Comment: PERF ORMED BY: [place] [address] PATHOLOGIST CHIEF LOCK OPERATOR JOSE CARLOS CUEVAS M.D. Performed By: #### A NA #### [facility] , #### CK, CRP, CBC, TSH3, ESR, PTH, CMP #### [address] [address] [place] Creatine kinase [Enzymatic a ctivity/volume] in Serum or PlasmaOrdered By: Steve Healy on 12-20-2023 CK [Catalytic activity/Vol] Creatine kinase [Enzymatic activity/volume] in Serum or Plasma 30 [facility] Creatinine [Mass/volume] in Serum or PlasmaOrdered By: Steve Healy on 12-20-2023 Creatinine [Mass/Vol] Creatinine [Mass/volume] in Serum or Plasma 0.60-1.20 [facility] Eosinophils Auto (Bld) [#/Vo l]Ordered By: Steve Healy on 12-20-2023 Eosinophils (Bld) [#/Vol] Automated eosinophil count 0.0-0.45 [facility] Eosinophils/100 WBC Auto (Bl d)Ordered By: Steve Healy on 12-20-2023 Eosinophils/100 WBC (Bld) Automated eosinophil % . [facility] Erythrocyte Sedimentation Ra kale 12-20-2023 ESR (Bld) [Velocity] 15 mm/h Normal 0-29 [facility] Comment on above: Result Comment: PERF ORMED BY: [place] [address] PATHOLOGIST CHIEF LOCK OPERATOR JOSE CARLOS CUEVAS M.D. Performed By: #### A NA #### [facility] , #### CK, CRP, CBC, TSH3, ESR, PTH, CMP #### [facility] [address] [place] [address] Erythrocyte distribution wid th Auto (RBC) [Ratio]Ordered By: Steve Healy on 12-20-2023 Erythrocyte distribution width (RBC) [Ratio] Erythrocyte distribution width [Ratio] by Automated count 11.9-15.3 [facility] Erythrocyte sedimentation ra te by Photometric methodOrdered By: Steve Healy on 12-20-2023 ESR Photometric method (Bld) [Velocity] Erythrocyte sedimentation rate by Photometric method 0-29 [facility] Globulin Calc (S) [Mass/Vol] Ordered By: Steve Healy on 12-20-2023 Globulin (S) [Mass/Vol] Serum globulin measurement by calculation (mass/volume) [facility] Glucose [Mass/volume] in Ser um or PlasmaOrdered By: Steve Healy on 12-20-2023 Glucose [Mass/Vol] Glucose [Mass/volume] in Serum or Plasma 70-100 [facility] Comment on above: ADA recommended refe rence rangeRandom Glucose Reference Range is dependent on time and content of last meal. Glucose of more than 200 mg/dL in a nonstressed, ambulatory subject supports the diagnosis of Diabetes Mellitus. Hematocrit Auto (Bld) [Volum e fraction]Ordered By: Steve Healy on 12-20-2023 Hematocrit (Bld) [Volume fraction] Hematocrit [Volume Fraction] of Blood by Automated count 34.0-46.4 [facility] Hemoglobin [Mass/volume] in BloodOrdered By: Steve Healy on 12-20-2023 Hemoglobin (Bld) [Mass/Vol] Hemoglobin [Mass/volume] in Blood 11.8-15.4 [facility] Leukocytes [#/volume] correc ivan for nucleated erythrocytes in Blood by Automated counOrdered By: Steve Healy on 12-20-2023 WBC corrected for nucl RBC Auto (Bld) [#/Vol] Leukocytes [#/volume] corrected for nucleated erythrocytes in Blood by Automated coun 3.8-11.6 [facility] Lymphocytes Auto (Bld) [#/Vo l]Ordered By: Steve Healy on 12-20-2023 Lymphocytes (Bld) [#/Vol] Lymphocytes [#/volume] in Blood by Automated count 1.00-4.8 [facility] Lymphocytes/100 WBC Auto (Bl d)Ordered By: Steve Healy on 12-20-2023 Lymphocytes/100 WBC (Bld) Lymphocytes/100 leukocytes in Blood by Automated count . [facility] MCH Auto (RBC) [Entitic mass ]Ordered By: Steve Healy on 12-20-2023 MCH (RBC) [Entitic mass] MCH [Entitic ma ss] by Automated count 24.7-34.3 [facility] MCHC Auto (RBC) [Mass/Vol]Or dered By: Steve Healy on 12-20-2023 MCHC (RBC) [Mass/Vol] MCHC [Mass/volume] by Automated count 32.0-35.0 [facility] MCV Auto (RBC) [Entitic vol] Ordered By: Steve Healy on 12-20-2023 MCV (RBC) [Entitic vol] MCV [Entitic volume] by Automated count 80-100 [facility] Monocytes Auto (Bld) [#/Vol] Ordered By: Steve Healy on 12-20-2023 Monocytes (Bld) [#/Vol] Automated blood monocyte count 0.0-0.8 [facility] Monocytes/100 WBC Auto (Bld) Ordered By: Steve Healy on 12-20-2023 Monocytes/100 WBC (Bld) Automated monocy te % . [facility] Neutrophils Auto (Bld) [#/Vo l]Ordered By: Steve Healy on 12-20-2023 Neutrophils (Bld) [#/Vol] Neutrophils [#/volume] in Blood by Automated count 1.8-7.7 [facility] Neutrophils/100 WBC Auto (Bl d)Ordered By: Steve Healy on 12-20-2023 Neutrophils/100 WBC (Bld) Automated neutrophil % . [facility] No Panel InformationOrdered By: Steve Healy on 12-20-2023 Estimated GFR (CKD-EPI) > 60.0 mL/Min [facility] Creatinine Clearance (Chem N/A [facility] Nucleated erythrocytes [Pres ence] in Blood by Automated countOrdered By: Steve Healy on 12-20-2023 Nucleated RBC Auto Ql (Bld) Nucleated erythrocytes [Presence] in Blood by Automated count 0-0.5 [facility] Parathyrin.intact [Mass/volu me] in Serum or PlasmaOrdered By: Steve Healy on 12-20-2023 Parathyrin.intact [Mass/Vol] Parathyrin.intact [Mass/volume] in Serum or Plasma [facility] Parathyroid Hormone Intacton 12-20-2023 Parathyroid Hormone Intact 50.1 pg/mL Normal [facility] Comment on above: Result Comment: PERF ORMED BY: [facility] [address] [place] [address] PATHOLOGIST CHIEF LOCK OPERATOR JOSE CARLOS CUEVAS M.D. Performed By: #### A NA #### [facility] , #### CK, CRP, CBC, TSH3, ESR, PTH, CMP #### [facility] [address] Platelet mean volume Auto (B ld) [Entitic vol]Ordered By: Steve Healy on 12-20-2023 Platelet mean volume (Bld) [Entitic vol] Platelet mean volume [Entitic volume] in Blood by Automated count 6.3-10.7 [facility] Platelets Auto (Bld) [#/Vol] Ordered By: Steve Healy on 12-20-2023 Platelets (Bld) [#/Vol] Platelets [#/volume] in Blood by Automated count 150-450 [facility] Potassium [Moles/volume] in Serum or PlasmaOrdered By: Steve Healy on 12-20-2023 Potassium [Moles/Vol] Potassium [Moles/volume] in Serum or Plasma 3.5-5.1 [facility] Protein [Mass/volume] in Ser um or PlasmaOrdered By: Steve Healy on 12-20-2023 Protein [Mass/Vol] Protein [Mass/volume] in Serum or Plasma 6.4-8.9 [facility] RBC Auto (Bld) [#/Vol]Ordere d By: Steve Healy on 12-20-2023 RBC (Bld) [#/Vol] Erythrocytes [#/volume] in Blood by Automated count 3.60-5.00 [facility] Serum nuclear antibody titer Ordered By: Steve Healy on 12-20-2023 Nuclear Ab (S) [Titer] Serum nuclear antibody titer . [facility] Comment on above: Negative <1:80 Borde rline 1:80 Positive >1:80ICAP nomenclature: [id number] more information about Hep-2 cell patterns useANApatterns.org, the official website for theInternational Consensus on Antinuclear Antibody (LEYID)Patterns (ICAP).Performed at: [facility] [address] [id number] Director: Jaquan Ac PhD, Phone: [phone] Serum or plasma albumin/glob ulin mass ratioOrdered By: Steve Healy on 12-20-2023 Albumin/Globulin [Mass ratio] Serum or plasma albumin/globulin mass ratio [facility] Serum or plasma anion gap de terminationOrdered By: Steve Healy on 12-20-2023 Anion gap [Moles/Vol] Serum or plasma anion gap determination 6.0-15.0 [facility] Sodium [Moles/volume] in Ser um or PlasmaOrdered By: Steve Healy on 12-20-2023 Sodium [Moles/Vol] Sodium [Moles/volume] in Serum or Plasma 136-145 [facility] Thyroid Stimulating Hormoneo n 12-20-2023 TSH Qn 1.03 m[IU]/L Normal 0.45-5.33 [facility] Comment on above: Result Comment: PERF ORMED BY: [place] [address] PATHOLOGIST CHIEF LOCK OPERATOR JOSE CARLOS CUEVAS M.D. Performed By: #### A NA #### [facility] , #### CK, CRP, CBC, TSH3, ESR, PTH, CMP #### [address] Thyrotropin [Units/volume] i n Serum or PlasmaOrdered By: Steve Healy on 12-20-2023 TSH Qn Thyrotropin [Units/volume] in Serum or Plasma 0.45-5.33 [facility] Urea nitrogen [Mass/volume] in Serum or PlasmaOrdered By: Steve Healy on 12-20-2023 Urea nitrogen [Mass/Vol] Urea nitrogen [Mass/volume] in Serum or Plasma 09-05 [facility] WBC Auto (Bld) [#/Vol]Ordere d By: Steve Healy on 12-20-2023 WBC (Bld) [#/Vol] Leukocytes [#/volume] in Blood by Automated count 3.8-11.6 [facility] X-ray reportOrdered By: Roberth Draper on 12-20-2023 Study report [facility] [address] [place] [address] XRay Report Signed Patient: Tiffany Baltazar MR#: [id number] : 1955 Acct:[id number] Age/Sex: 68 / F ADM Date: 4 Loc: ICXD Room: Type: [facility] CLI Attending Dr: Steve Healy MD [...] Draper DO 12/20/23 1558 Signed By: 12/20/23 1559 [facility] XR hand BI 2Von 12-20-2023 XR hand BI 2V [facility] [place] [address] XRay Report Signed Patient: Tiffany Baltazar MR#: [id number] : 1955 Acct:[id number] Age/Sex: 68 / F ADM Date: 12/20/23 Loc: [facility] Room: Type: [facility] CLI Attending Dr: Steve Healy MD [...] RADIO-PC-23 Transcribed By: ERINN 12/20/231558 Dictated By: Santiago Draper DO 12/20/231557 Signed By: 12/20/231558 Normal [facility] PROF LINDSAY 8 (BAS METB)on Anion gap [Moles/Vol] 9.7 mmol/L Normal [facility] Comment on above: Performed By: #### O SMOU #### [facility] [address] [place] [address] Dr. Dione Johnson Calcium [Mass/Vol] 9.0 mg/dL Normal 8.5-10.1 [facility] Comment on above: Performed By: #### O SMOU #### [facility] [address] [place] [address] Dr. Dione Johnson Chloride [Moles/Vol] 100 mmol/L Normal 98-107 [facility] Comment on above: Performed By: #### O SMOU #### [facility] [address] [place] [address] Dr. Dione Johnson CO2 [Moles/Vol] 29.7 mmol/L Normal 21.0-32.0 [facility] Comment on above: Performed By: #### O SMOU #### [facility] [address] [place] [address] Dr. Dione Johnson Creatinine [Mass/Vol] 0.82 mg/dL Normal 0.55-1.02 [facility] Comment on above: Performed By: #### O SMOU #### [facility] [address] [place] [address] Dr. Dione Johnson EGFR-AF SAUDI ARABIAN >60 Normal >=60 [facility] Comment on above: Performed By: #### O SMOU #### [facility] [address] [address] [address] Dione Johnson EGFR-NON AF SAUDI ARABIAN >60 Normal >=60 [facility] Comment on above: Performed By: #### O SMOU #### [facility] [address] [place] [address] Dr. Dione Johnson Glucose [Mass/Vol] 101 mg/dL Normal 74-106 [facility] Comment on above: Performed By: #### O SMOU #### [facility] [address] [address] [address] Dione Johnson Potassium [Moles/Vol] 4.4 mmol/L Normal 3.5-5.1 [facility] Comment on above: Performed By: #### O SMOU #### [facility] [address] [place] [address] Dr. Dione Johnson Sodium [Moles/Vol] 135 mmol/L Critically low 136-145 [facility] Comment on above: Performed By: #### O SMOU #### [facility] [address] [place] [address] Dr. Dione Johnson Urea nitrogen [Mass/Vol] 9.0 mg/dL Normal 7.0-18.0 [facility] Comment on above: Performed By: #### O SMOU #### [facility] [address] [place] [address] Dr. Dione Johnson Urea nitrogen/Creatinine [Mass ratio] 11.0 mg/mg Normal [facility] Comment on above: Performed By: #### O SMOU #### [facility] [address] [place] [address] Dr. Dione Johnson OSMOLALITYon 10-28-2021 Osmolality [Osmolality] 244 mosm/kg Critically low 280-301 [facility] Comment on above: Result Comment: Re sults verified by repeat testing Performed By: #### O SMO #### [facility] [address] [place] [address] Dr. Dione Johnson OSMOLALITY URINEon 2 Osmolality, Urine 215 mOsmol/kg Normal [facility] Comment on above: Result Comment: 24 h r : 300 - 900 Random: 50 - 1400 After 12hr fluid restriction: >850 Performed By: #### O SMOU #### [facility] [address] [place] [address] Dr. Dione Johnson CBC AUTO DIFFon 10-26-2021 BASO # 0.0 103/ul Normal 0.0-0.1 [facility] Comment on above: Performed By: #### O SMOU #### [facility] [address] [place] [address] Dr. Dione Johnson Basophils/100 WBC (Bld) 0.2 % Normal 0.2-2.0 [facility] Comment on above: Performed By: #### O SMOU #### [facility] [address] [place] [address] Dr. Dione Johnson EO # 0.0 103/ul Normal 0.0-0.7 [facility] Comment on above: Performed By: #### O SMOU #### [facility] [address] [place] [address] Dr. Dione Johnson Eosinophils/100 WBC (Bld) 0.0 % Critically low 0.9-7.0 [facility] Comment on above: Performed By: #### O SMOU #### [facility] [address] [place] [address] Dr. Dione Johnson Erythrocyte distribution width (RBC) [Ratio] 13.2 % Normal 11.0-15.0 [facility] Comment on above: Performed By: #### O SMOU #### [facility] [address] [place] [address] Dr. Dione Johnson Hematocrit (Bld) [Volume fraction] 34.8 % Critically low 36.0-48.0 [facility] Comment on above: Performed By: #### O SMOU #### [facility] [address] [place] [address] Dr. Dione Johnson Hemoglobin (Bld) [Mass/Vol] 11.9 g/dL Critically low 12.0-16.0 [facility] Comment on above: Performed By: #### O SMOU #### [facility] [address] [place] [address] Dr. Dione Johnson IG # 0.10 10e3/ul Critically high 0.00-0.03 [facility] Comment on above: Performed By: #### O SMOU #### [facility] [address] [place] [address] Dr. Dione Johnson IG % 1.2 % Critically high 0.0-0.5 [facility] Comment on above: Performed By: #### O SMOU #### [facility] [address] [address] [address] Dione Johnson LYMPH # 1.2 103/ul Normal 1.2-3.8 [facility] Comment on above: Performed By: #### O SMOU #### [facility] [address] [address] [address] Dione Johnson Lymphocytes/100 WBC (Bld) 14.3 % Critically low 20.5-60.0 [facility] Comment on above: Performed By: #### O SMOU #### [facility] [address] [address] [address] Dione Johnson MANUAL DIFF REQ NO Normal [facility] Comment on above: Performed By: #### O SMOU #### [facility] [address] [place] [address] Dr. Dione Johnson MCH (RBC) [Entitic mass] 31.5 pg Normal 26.7-34.0 [facility] Comment on above: Performed By: #### O SMOU #### [facility] [address] [place] [address] Dr. Dione Johnson MCHC (RBC) [Mass/Vol] 34.2 g/dL Normal 29.9-35.2 [facility] Comment on above: Performed By: #### O SMOU #### [facility] [address] [place] [address] Dr. Dione Johnson MCV (RBC) [Entitic vol] 92.1 fL Normal 81.0-99.0 [facility] Comment on above: Performed By: #### O SMOU #### [facility] [address] [place] [address] Dr. Dione Johnson MONO # 0.4 103/ul Normal 0.3-0.8 [facility] Comment on above: Performed By: #### O SMOU #### [facility] [address] [place] [address] Dr. Dione Johnson Monocytes/100 WBC (Bld) 4.5 % Normal 1.7-12.0 [facility] Comment on above: Performed By: #### O SMOU #### [facility] [address] [address] [address] Dione Johnson NEUT # 6.7 103/ul Critically high 1.4-6.5 [facility] Comment on above: Performed By: #### O SMOU #### [facility] [address] [address] [address] Dione Johnson Neutrophils/100 WBC (Bld) 79.8 % Critically high 43.0-75.0 [facility] Comment on above: Performed By: #### O SMOU #### [facility] [address] [place] [address] Dr. Dione Johnson Platelet mean volume (Bld) [Entitic vol] 10.3 fL Normal 9.5-13.5 [facility] Comment on above: Performed By: #### O SMOU #### [facility] [address] [place] [address] Dr. Dione Johnson PLT 187 103/ul Normal 150-450 [facility] Comment on above: Performed By: #### O SMOU #### [facility] [address] [place] [address] Dr. Dione Johnson RBC 3.78 106/ul Critically low 4.20-5.40 [facility] Comment on above: Performed By: #### O SMOU #### [facility] [address] [place] [address] Dr. Dione Johnson WBC 8.4 103/ul Normal 4.0-11.0 [facility] Comment on above: Performed By: #### O SMOU #### [facility] [address] [place] [address] Dr. Dione Johnson MAGNESIUMon 10-26-2021 Magnesium [Mass/Vol] 2.0 mg/dL Normal 1.8-2.4 [facility] Comment on above: Performed By: #### M G, BMP #### [facility] [address] [place] [address] Dr. Dione Johnson PROF CHEM 8 (BAS METB)on Anion gap [Moles/Vol] 10.1 mmol/L Normal Th [facility] Comment on above: Performed By: #### M G, BMP #### [facility] [address] [place] [address] Dr. Dione Johnson Calcium [Mass/Vol] 8.3 mg/dL Critically low 8.5-10.1 [facility] Comment on above: Performed By: #### M G, BMP #### [facility] [address] [place] [address] Dr. Dione Johnson Chloride [Moles/Vol] 96 mmol/L Critically low 98-107 [facility] Comment on above: Performed By: #### M G, BMP #### [facility] [address] [place] [address] Dr. Dione Johnson CO2 [Moles/Vol] 25.9 mmol/L Normal 21.0-32.0 [facility] Comment on above: Performed By: #### M G, BMP #### [facility] [address] [place] [address] Dr. Dione Johnson Creatinine [Mass/Vol] 0.64 mg/dL Normal 0.55-1.02 [facility] Comment on above: Performed By: #### M G, BMP #### [facility] [address] [place] [address] Dr. Dione Johnson EGFR-AF SAUDI ARABIAN >60 Normal >=60 [facility] Comment on above: Performed By: #### M G, BMP #### [facility] [address] [place] [address] Dr. Dione Johnson EGFR-NON AF SAUDI ARABIAN >60 Normal >=60 [facility] Comment on above: Performed By: #### M G, BMP #### [facility] [address] [place] [address] Dr. Dione Johnson Glucose [Mass/Vol] 141 mg/dL Critically high 74-106 [facility] Comment on above: Performed By: #### M G, BMP #### [facility] [address] [place] [address] Dr. Dione Johnson Potassium [Moles/Vol] 4.0 mmol/L Normal 3.5-5.1 [facility] Comment on above: Performed By: #### M G, BMP #### [facility] [address] [place] [address] Dr. Dione Johnson Sodium [Moles/Vol] 128 mmol/L Critically low 136-145 Th [facility] Comment on above: Performed By: #### M G, BMP #### [facility] [address] [place] [address] Dr. Dione Johnson Urea nitrogen [Mass/Vol] 10.0 mg/dL Normal 7.0-18.0 [facility] Comment on above: Performed By: #### M G, BMP #### [facility] [address] [place] [address] Dr. Dione Johnson Urea nitrogen/Creatinine [Mass ratio] 15.6 mg/mg Normal [facility] Comment on above: Performed By: #### M G, BMP #### [facility] [address] [place] [address] Dr. Dione Johnson CBC AUTO DIFFon 10-25-2021 BASO # 0.0 103/ul Normal 0.0-0.1 [facility] Comment on above: Performed By: #### O SMOU #### [facility] [address] [place] [address] Dr. Dione Johnson Basophils/100 WBC (Bld) 0.6 % Normal 0.2-2.0 [facility] Comment on above: Performed By: #### O SMOU #### [facility] [address] [place] [address] Dr. Dione Johnson EO # 0.3 103/ul Normal 0.0-0.7 [facility] Comment on above: Performed By: #### O SMOU #### [facility] [address] [place] [address] Dr. Dione Johnson Eosinophils/100 WBC (Bld) 4.1 % Normal 0.9-7.0 [facility] Comment on above: Performed By: #### O SMOU #### [facility] [address] [place] [address] Dr. Dioen Johnson Erythrocyte distribution width (RBC) [Ratio] 13.2 % Normal 11.0-15.0 [facility] Comment on above: Performed By: #### O SMOU #### [facility] [address] [place] [address] Dr. Dione Johnson Hematocrit (Bld) [Volume fraction] 38.1 % Normal 36.0-48.0 [facility] Comment on above: Performed By: #### O SMOU #### [facility] [address] [place] [address] Dr. Dione Johnson Hemoglobin (Bld) [Mass/Vol] 13.0 g/dL Normal 12.0-16.0 [facility] Comment on above: Performed By: #### O SMOU #### [facility] [address] [place] [address] Dr. Dione Johnson IG # 0.11 10e3/ul Critically high 0.00-0.03 [facility] Comment on above: Performed By: #### O SMOU #### [facility] [address] [place] [address] Dr. Dione Johnson IG % 1.6 % Critically high 0.0-0.5 [facility] Comment on above: Performed By: #### O SMOU #### [facility] [address] [place] [address] Dr. Dione Johnson LYMPH # 2.2 103/ul Normal 1.2-3.8 [facility] Comment on above: Performed By: #### O SMOU #### [facility] [address] [place] [address] Dr. Dione Johnson Lymphocytes/100 WBC (Bld) 31.1 % Normal 20.5-60.0 [facility] Comment on above: Performed By: #### O SMOU #### [facility] [address] [place] [address] Dr. Dione Johnson MANUAL DIFF REQ NO Normal [facility] Comment on above: Performed By: #### O SMOU #### [facility] [address] [place] [address] Dr. Dione Johnson MCH (RBC) [Entitic mass] 31.4 pg Normal 26.7-34.0 [facility] Comment on above: Performed By: #### O SMOU #### [facility] [address] [place] [address] Dr. Dione Johnson MCHC (RBC) [Mass/Vol] 34.1 g/dL Normal 29.9-35.2 [facility] Comment on above: Performed By: #### O SMOU #### [facility] [address] [place] [address] Dr. Dione Johnson MCV (RBC) [Entitic vol] 92.0 fL Normal 81.0-99.0 [facility] Comment on above: Performed By: #### O SMOU #### [facility] [address] [place] [address] Dr. Dione Johnson MONO # 0.9 103/ul Critically high 0.3-0.8 [facility] Comment on above: Performed By: #### O SMOU #### [facility] [address] [place] [address] Dr. Dione Johnson Monocytes/100 WBC (Bld) 13.3 % Critically high 1.7-12. 0 [facility] Comment on above: Performed By: #### O SMOU #### [facility] [address] [place] [address] Dr. Dione Johnson NEUT # 3.5 103/ul Normal 1.4-6.5 [facility] Comment on above: Performed By: #### O SMOU #### [facility] [address] [place] [address] Dr. Dione Johnson Neutrophils/100 WBC (Bld) 49.3 % Normal 43.0-75.0 [facility] Comment on above: Performed By: #### O SMOU #### [facility] [address] [place] [address] Dr. Dione Johnson Platelet mean volume (Bld) [Entitic vol] 10.2 fL Normal 9.5-13.5 [facility] Comment on above: Performed By: #### O SMOU #### [facility] [address] [place] [address] Dr. Dione Johnson PLT 196 103/ul Normal 150-450 [facility] Comment on above: Performed By: #### O SMOU #### [facility] [address] [place] [address] Dr. Dione Johnson RBC 4.14 106/ul Critically low 4.20-5.40 [facility] Comment on above: Performed By: #### O SMOU #### [facility] [address] [place] [address] Dr. Dione Johnson WBC 7.1 103/ul Normal 4.0-11.0 [facility] Comment on above: Performed By: #### O SMOU #### [facility] [address] [place] [address] Dr. Dione Johnson Covid-19 PCR ([facility])on 10-13 SARS-CoV-2 (COVID-19) RNA LAURA+probe Ql (Unsp spec) Detected Critically abnormal NOT DETECTED [facility] Comment on above: Result Comment: This test is not yet approved or cleared by the [place] FDA. When there are no FDA-approved or cleared tests available, and other criteria are met, FDA can make tests available under an emergency access mechanism called an Emergency Use Authorization (EUA). The EUA for this test is supported by the [employer] Setter of Health and Human Service's declaration that [...] used). Performed By: #### C VDTBH #### [facility] [address] [place] [address] Dr. Dione Johnson MAGNESIUMon 10-25-2021 Magnesium [Mass/Vol] 2.1 mg/dL Normal 1.8-2.4 [facility] Comment on above: Performed By: #### B MP, MG #### [facility] [address] [place] [address] Dr. Dione Johnson NAon 10-25-2021 Sodium [Moles/Vol] 125 mmol/L Critically low 136-145 [facility] Comment on above: Performed By: #### O SMOU #### [facility] [address] [place] [address] Dr. Dione Johnson Sodium [Moles/Vol] 124 mmol/L Critically low 136-145 [facility] Comment on above: Performed By: #### O SMOU #### [facility] [address] [place] [address] Dr. Dione Johnson PROF CHEM 8 (BAS METB)on Anion gap [Moles/Vol] 10.1 mmol/L Normal [facility] Comment on above: Performed By: #### B MP, MG #### [facility] [address] [place] [address] Dr. Dione Johnson Calcium [Mass/Vol] 8.8 mg/dL Normal 8.5-10.1 [facility] Comment on above: Performed By: #### B MP, MG #### [facility] [address] [place] [address] Dr. Dione Johnson Chloride [Moles/Vol] 89 mmol/L Critically low 98-107 [facility] Comment on above: Performed By: #### B MP, MG #### [facility] [address] [place] [address] Dr. Dione Johnson CO2 [Moles/Vol] 30.3 mmol/L Normal 21.0-32.0 [facility] Comment on above: Performed By: #### B MP, MG #### [facility] [address] [place] [address] Dr. Dione Johnson Creatinine [Mass/Vol] 0.63 mg/dL Normal 0.55-1.02 [facility] Comment on above: Performed By: #### B MP, MG #### [facility] [address] [place] [address] Dr. Dione Johnson EGFR-AF SAUDI ARABIAN >60 Normal >=60 [facility] Comment on above: Performed By: #### B MP, MG #### [facility] [address] [place] [address] Dr. Dione Johnson EGFR-NON AF SAUDI ARABIAN >60 Normal >=60 [facility] Comment on above: Performed By: #### B MP, MG #### [facility] [address] [place] [address] Dr. Dione Johnson Glucose [Mass/Vol] 99 mg/dL Normal 74-106 [facility] Comment on above: Performed By: #### B MP, MG #### [facility] [address] [place] [address] Dr. Dione Johnson Potassium [Moles/Vol] 3.4 mmol/L Critically low 3.5-5.1 [facility] Comment on above: Performed By: #### B MP, MG #### [facility] [address] [place] [address] Dr. Dione Johnson Sodium [Moles/Vol] 126 mmol/L Critically low 136-145 [facility] Comment on above: Performed By: #### B MP, MG #### [facility] [address] [place] [address] Dr. Dione Johnson Urea nitrogen [Mass/Vol] 5.0 mg/dL Critically low 7.0-18. 0 [facility] Comment on above: Performed By: #### B MP, MG #### [facility] [address] [place] [address] Dr. Dione Johnson Urea nitrogen/Creatinine [Mass ratio] 7.9 mg/mg Normal [facility] Comment on above: Performed By: #### B MP, MG #### [facility] [address] [place] [address] Dr. Dione Johnson CBC AUTO DIFFon 10-24-2021 BASO # 0.0 103/ul Normal 0.0-0.1 [facility] Comment on above: Performed By: #### C BC #### [facility] [address] [place] [address] Dr. Dione Johnson Basophils/100 WBC (Bld) 0.3 % Normal 0.2-2.0 [facility] Comment on above: Performed By: #### C BC #### [facility] [address] [address] [address] Dione Johnson EO # 0.1 103/ul Normal 0.0-0.7 [facility] Comment on above: Performed By: #### C BC #### [facility] [address] [place] [address] Dr. Dione Johnson Eosinophils/100 WBC (Bld) 0.7 % Critically low 0.9-7.0 [facility] Comment on above: Performed By: #### C BC #### [facility] [address] [place] [address] Dr. Dione Johnson Erythrocyte distribution width (RBC) [Ratio] 13.2 % Normal 11.0-15.0 [facility] Comment on above: Performed By: #### C BC #### [facility] [address] [place] [address] Dr. Dione Johnson Hematocrit (Bld) [Volume fraction] 36.4 % Normal 36.0-48.0 [facility] Comment on above: Performed By: #### C BC #### [facility] [address] [place] [address] Dr. Dione Johnson Hemoglobin (Bld) [Mass/Vol] 12.8 g/dL Normal 12.0-16.0 [facility] Comment on above: Performed By: #### C BC #### [facility] [address] [place] [address] Dr. Dione Johnson IG # 0.10 10e3/ul Critically high 0.00-0.03 [facility] Comment on above: Performed By: #### C BC #### [facility] [address] [place] [address] Dr. Dione Johnson IG % 1.0 % Critically high 0.0-0.5 [facility] Comment on above: Performed By: #### C BC #### [facility] [address] [place] [address] Dr. Dione Johnson LYMPH # 2.0 103/ul Normal 1.2-3.8 [facility] Comment on above: Performed By: #### C BC #### [facility] [address] [place] [address] Dr. Dione Johnson Lymphocytes/100 WBC (Bld) 20.9 % Normal 20.5-60.0 [facility] Comment on above: Performed By: #### C BC #### [facility] [address] [place] [address] Dr. Dione Johnson MANUAL DIFF REQ NO Normal [facility] Comment on above: Performed By: #### C BC #### [facility] [address] [place] [address] Dr. Dione Johnson MCH (RBC) [Entitic mass] 31.6 pg Normal 26.7-34.0 [facility] Comment on above: Performed By: #### C BC #### [facility] [address] [place] [address] Dr. Dione Johnson MCHC (RBC) [Mass/Vol] 35.2 g/dL Normal 29.9-35.2 [facility] Comment on above: Performed By: #### C BC #### [facility] [address] [place] [address] Dr. Dione Johnson MCV (RBC) [Entitic vol] 89.9 fL Normal 81.0-99.0 [facility] Comment on above: Performed By: #### C BC #### [facility] [address] [place] [address] Dr. Dione Johnson MONO # 0.7 103/ul Normal 0.3-0.8 [facility] Comment on above: Performed By: #### C BC #### [facility] [address] [place] [address] Dr. Dione Johnson Monocytes/100 WBC (Bld) 7.6 % Normal 1.7-12.0 [facility] Comment on above: Performed By: #### C BC #### [facility] [address] [place] [address] Dr. Dione Johnson NEUT # 6.8 103/ul Critically high 1.4-6.5 [facility] Comment on above: Performed By: #### C BC #### [facility] [address] [place] [address] Dr. Dione Johnson Neutrophils/100 WBC (Bld) 69.5 % Normal 43.0-75.0 [facility] Comment on above: Performed By: #### C BC #### [facility] [address] [place] [address] Dr. Dione Johnson Platelet mean volume (Bld) [Entitic vol] 10.4 fL Normal 9.5-13.5 [facility] Comment on above: Performed By: #### C BC #### [facility] [address] [place] [address] Dr. Dione Johnson PLT 188 103/ul Normal 150-450 [facility] Comment on above: Performed By: #### C BC #### [facility] [address] [place] [address] Dr. Dione Johnson RBC 4.05 106/ul Critically low 4.20-5.40 [facility] Comment on above: Performed By: #### C BC #### [facility] [address] [place] [address] Dr. Dione Johnson WBC 9.8 103/ul Normal 4.0-11.0 [facility] Comment on above: Performed By: #### C BC #### [facility] [address] [place] [address] Dr. Dione Johnson ER URINE PROFILEon 2 Bilirubin Ql (U) Negative Normal NEGATIVE [facility] Comment on above: Performed By: #### E RUR #### [facility] [address] [place] [address] Dr. Dione Johnson Clarity (U) CLEAR Normal CLEAR [facility] Comment on above: Performed By: #### E RUR #### [facility] [address] [place] [address] Dr. Dione Johnson Color (U) LT. YELLOW Normal YELLOW [facility] Comment on above: Performed By: #### E RUR #### [facility] [address] [place] [address] Dr. Dione Johnson ERUEDMUNDO A micrscopic examination will be performed if indicated. Normal [facility] Comment on above: Performed By: #### E RUR #### [facility] [address] [place] [address] Dr. Dione Johnson Glucose Ql (U) Negative Normal NEGATIVE [facility] Comment on above: Performed By: #### E RUR #### [facility] [address] [place] [address] Dr. Dione Johnson Hemoglobin Ql (U) Negative Normal NEGATIVE [facility] Comment on above: Performed By: #### E RUR #### [facility] [address] [place] [address] Dr. Dione Johnson Ketones Ql (U) Negative Normal NEGATIVE [facility] Comment on above: Performed By: #### E RUR #### [facility] [address] [place] [address] Dr. Dione Johnson LEUKOCYTES Negative Normal NEGATIVE [facility] Comment on above: Performed By: #### E RUR #### [facility] [address] [place] [address] Dr. Dione Johnson Nitrite Ql (U) Negative Normal NEGATIVE [facility] Comment on above: Performed By: #### E RUR #### [facility] [address] [place] [address] Dr. Dione Johnson pH (U) 7.0 [pH] Normal 5-9 [facility] Comment on above: Performed By: #### E RUR #### [facility] [address] [place] [address] Dr. Dione Johnson SPEC GRAVITY 1.010 Normal 1.005-<=1.02 5 [facility] Comment on above: Performed By: #### E RUR #### [facility] [address] [place] [address] Dr. Dione Johnson UA PROTEIN Negative Normal NEGATIVE/ TRACE [facility] Comment on above: Performed By: #### E RUR #### [facility] [address] [place] [address] Dr. Dione Johnson UR MICRO IND NOT INDICATED Normal [facility] Comment on above: Performed By: #### E RUR #### [facility] [address] [place] [address] Dr. Dione Johnson Urobilinogen Qn (U) 0.2 {Mariaa'U}/dL Normal 0.2 - 1. 0 [facility] Comment on above: Performed By: #### E RUR #### [facility] [address] [address] [address] Dione Johnson PROF 14(COMP METB)on 022 Albumin [Mass/Vol] 3.5 g/dL Normal 3.4-5.0 [facility] Comment on above: Performed By: #### O SMOU #### [facility] [address] [address] [address] Dione Johnson Albumin/Globulin [Mass ratio] 1.2 {ratio} Normal [facility] Comment on above: Performed By: #### O SMOU #### [facility] [address] [place] [address] Dr. Dione Johnson ALP [Catalytic activity/Vol] 121 U/L Critically high 46-116 [facility] Comment on above: Performed By: #### O SMOU #### [facility] [address] [place] [address] Dr. Dione Johnson ALT [Catalytic activity/Vol] 32 U/L Normal 14-59 [facility] Comment on above: Performed By: #### O SMOU #### [facility] [address] [place] [address] Dr. Dione Johnson Anion gap [Moles/Vol] 10.2 mmol/L Normal [facility] Comment on above: Performed By: #### O SMOU #### [facility] [address] [place] [address] Dr. Dione Johnson AST [Catalytic activity/Vol] 20 U/L Normal 15-37 [facility] Comment on above: Performed By: #### O SMOU #### [facility] [address] [place] [address] Dr. Dione Johnson Bilirubin [Mass/Vol] 0.4 mg/dL Normal 0.2-1.0 [facility] Comment on above: Performed By: #### O SMOU #### [facility] [address] [address] [address] Dione Johnson Calcium [Mass/Vol] 8.6 mg/dL Normal 8.5-10.1 [facility] Comment on above: Performed By: #### O SMOU #### [facility] [address] [address] [address] Dione Johnson Chloride [Moles/Vol] 85 mmol/L Critically low 98-107 [facility] Comment on above: Performed By: #### O SMOU #### [facility] [address] [place] [address] Dr. Dione Johnson CO2 [Moles/Vol] 28.1 mmol/L Normal 21.0-32.0 [facility] Comment on above: Performed By: #### O SMOU #### [facility] [address] [place] [address] Dr. Dione Johnson Creatinine [Mass/Vol] 0.68 mg/dL Normal 0.55-1.02 [facility] Comment on above: Performed By: #### O SMOU #### [facility] [address] [place] [address] Dr. Dione Johnson EGFR-AF SAUDI ARABIAN >60 Normal >=60 [facility] Comment on above: Performed By: #### O SMOU #### [facility] [address] [place] [address] Dr. Dione Johnson EGFR-NON AF SAUDI ARABIAN >60 Normal >=60 [facility] Comment on above: Performed By: #### O SMOU #### [facility] [address] [place] [address] Dr. Dione Johnson Globulin (S) [Mass/Vol] 2.9 g/dL Normal [facility] Comment on above: Performed By: #### O SMOU #### [facility] [address] [place] [address] Dr. Dione Johnson Glucose [Mass/Vol] 100 mg/dL Normal 74-106 [facility] Comment on above: Performed By: #### O SMOU #### [facility] [address] [place] [address] Dr. Dione Johnson Potassium [Moles/Vol] 3.3 mmol/L Critically low 3.5-5.1 [facility] Comment on above: Performed By: #### O SMOU #### [facility] [address] [address] [address] Dione Johnson Protein [Mass/Vol] 6.4 g/dL Normal 6.4-8.2 [facility] Comment on above: Performed By: #### O SMOU #### [facility] [address] [address] [address] Dione Johnson Sodium [Moles/Vol] 120 mmol/L Critically low 136-145 [facility] Comment on above: Performed By: #### O SMOU #### [facility] [address] [place] [address] Dr. Dione Johnson Urea nitrogen [Mass/Vol] 9.0 mg/dL Normal 7.0-18.0 [facility] Comment on above: Performed By: #### O SMOU #### [facility] [address] [place] [address] Dr. Dione Johnson Urea nitrogen/Creatinine [Mass ratio] 13.2 mg/mg Normal [facility] Comment on above: Performed By: #### O SMOU #### [facility] [address] [place] [address] Dr. Dione Johnson TROPONIN, HIGH SENSITIVITYon 10-24-2021 HSTROP 11.1 pg/mL Normal 4.0-51.3 [facility] Comment on above: Result Comment: CUT- OFF POINTS HAVE BEEN ESTABLISHED BASED ON THE FOURTH UNIVERSAL DEFINITIONS OF MYOCARDIAL INFARCTION. THE UPPER REFERENCE LIMIT (URL) OF TROPONIN, DEFINED THE 99TH PERCENTILE OF cTnI DISTRIBUTION IN A REFERENCE POPULATION, HAS BEEN CONFIRMED THE DECISION THRESHOLD FOR MO DIAGNOSIS. Performed By: #### H STROPN #### [facility] [address] [place] [address] Dr. Dione Johnson XR CHEST 1 Von [...] by: ABDULLAHI KEVIN Date: 2021-10-24 17:52 Normal [facility] Vital Signs Date Time Vital Sign Value Performing Clinician Facility 09-30-2024 11:08-0400 Body height 160 cm Narendra Al MD Work Phone: [facility] 09-30-2024 11:08-0400 Body mass index (BMI) [Ratio] 29.05 kg/m2 Narendra Al MD Work Phone: [facility] 09-30-2024 11:08-0400 Body temperature 97.5 [degF] Narendra Al MD Work Phone: [facility] 09-30-2024 11:08-0400 Body weight 74.39 kg Narendra Al MD Work Phone: [facility] 09-30-2024 11:08-0400 Diastolic blood pressure 70 mm[Hg] Narendra Al MD Work Phone: [facility] 09-30-2024 11:08-0400 Heart rate 55 /min Narendra Al MD Work Phone: [facility] 09-30-2024 11:08-0400 Respiratory rate 20 /min Narendra Al MD Work Phone: [facility] 09-30-2024 11:08-0400 SaO2% (BldA) [Mass fraction] 91 % Narendra Al MD Work Phone: [facility] 09-30-2024 11:08-0400 Systolic blood pressure 126 mm[Hg] Narendra Al MD Work Phone: [facility] 04-07-2024 10:41-0500 Body mass index (BMI) [Ratio] 30 kg/m2 Narendra Al MD Work Phone: [facility] 04-07-2024 10:41-0500 Body temperature 98.29 [degF] Narendra Al MD Work Phone: [facility] 04-07-2024 10:41-0500 Body weight 74.39 kg Narendra Al MD Work Phone: [facility] 04-07-2024 10:41-0500 Diastolic blood pressure 64 mm[Hg] Narendra Al MD Work Phone: [facility] 04-07-2024 10:41-0500 Heart rate 56 /min Narendra Al MD Work Phone: [facility] 04-07-2024 10:41-0500 SaO2% (BldA) [Mass fraction] 93 % Narendra Al MD Work Phone: [facility] 04-07-2024 10:41-0500 Systolic blood pressure 130 mm[Hg] Narendra Al MD Work Phone: [facility] 01-17-2024 13:09-0500 Body height 157.48 cm PHYSICIAN NO [facility] 01-17-2024 13:09-0500 Body mass index (BMI) [Ratio] 29.2 kg/m2 PHYSICIAN NO [facility] 01-17-2024 13:09-0500 Body weight 72.57 kg PHYSICIAN NO [facility] 01-17-2024 13:09-0500 Diastolic blood pressure 70 mm[Hg] PHYSICIAN NO [facility] 01-17-2024 13:09-0500 Heart rate 64 /min PHYSICIAN NO [facility] 01-17-2024 13:09-0500 Systolic blood pressure 160 mm[Hg] PHYSICIAN NO [facility] 10-04-2022 13:15-0400 Body height 160.02 cm Callum Chua Other [employer] Other 10-04-2022 13:15-0400 Body mass index (BMI) [Ratio] 27.1 kg/m2 Callum Reavesy Other [employer] Other 10-04-2022 13:15-0400 Body weight 69.4 kg Callum Reavesy Other [employer] Other 10-04-2022 13:15-0400 Diastolic blood pressure 69 mm[Hg] Callum Ditty Other [employer] Other 10-04-2022 13:15-0400 Systolic blood pressure 178 mm[Hg] Callum Ditty Other [employer] Other 06-22-2021 14:30-0400 Body height 160.02 cm Callum Reavesy Other [employer] Other 06-22-2021 14:30-0400 Body mass index (BMI) [Ratio] 25.33 kg/m2 Callum Reavesy Other [employer] Other 06-22-2021 14:30-0400 Body weight 64.86 kg Callum Reavesy Other [employer] Other 06-22-2021 14:30-0400 Diastolic blood pressure 81 mm[Hg] Callum Ditty Other [employer] Other 06-22-2021 14:30-0400 Systolic blood pressure 155 mm[Hg] Callum Ditty Other [employer] Other 04-28-2021 15:45-0400 Body height 160.02 cm Callum Jellyy Other [employer] Other 04-28-2021 15:45-0400 Body mass index (BMI) [Ratio] 26.04 kg/m2 Callum Chua Other [employer] Other 04-28-2021 15:45-0400 Body weight 66.68 kg Callum Chua Other [employer] Other Encounters Encounter Date Encounter Type Care Provider Facility Start: 09-30-2024 End: 09-30-2024 Bamboo flowsheet Narendra Al MD Work Phone: [facility] Start: 09-30-2024 End: 09-30-2024 Bamboo flowsheet Narendra Al MD Work Phone: [facility] Start: 09-30-2024 End: 09-30-2024 Patient encounter procedure Narendra Al MD Work Phone: [facility] Work Phone: Start: 09-30-2024 End: 09-30-2024 Postop follow up visit related to original px Narendra Al MD Work Phone: [facility] Comment on above: Medicare annual well ness visit, subsequent (Primary Dx); Encounter for long-term (current) use of medications; Lipid screening; Fatigue, unspecified type; Essential hypertension, benign ; Former smoker Start: 07-28-2024 End: 07-28-2024 ambulatory [facility] Facility:[facility] Start: 04-24-2024 End: 04-24-2024 Clinisync Result Encounter Narendra Al MD Work Phone: [facility] Unsolicited Start: 04-24-2024 End: 04-24-2024 Clinisync Result Encounter Narendra Al MD Work Phone: [facility] Unsolicited Start: 04-07-2024 End: 04-07-2024 Bamboo flowsheet Narendra Al MD Work Phone: [facility] Start: 04-07-2024 End: 04-07-2024 Bamboo flowsheet Narendra Al MD Work Phone: [facility] Start: 04-07-2024 End: 04-07-2024 Office outpatient visit 25 minutes Narendra Al MD Work Phone: [facility] Comment on above: Essential hypertensi on, benign (CMS/HCC) (Primary Dx); Polymyalgia rheumatica (CMS/HCC); Acute bronchitis due to other specified organisms; Breast cancer screening by mammogram Start: 04-07-2024 End: 04-07-2024 ambulatory NARENDRA AL Not Available Start: 03-10-2024 End: 03-10-2024 Patient encounter procedure PHYSICIAN NO [facility] [address] Work Phone: Start: 03-10-2024 End: 03-10-2024 ambulatory PHYSICIAN NO [facility] Work Phone: Start: 01-17-2024 End: 01-17-2024 Patient encounter procedure PHYSICIAN NO [facility] Work Phone: Start: 12-20-2023 End: 12-20-2023 Patient encounter procedure PHYSICIAN NO [facility] [address] Work Phone: Start: 12-20-2023 End: 12-20-2023 ambulatory PHYSICIAN NO [facility] Work Phone: Start: 10-01-2023 End: 10-01-2023 ambulatory NARENDRA AL Not Available Start: 08-02-2023 End: 08-02-2023 ambulatory NARENDRA AL Not Available Start: 08-02-2023 Patient encounter procedure Narendra Al MD Work Phone: [facility] Start: 07-05-2023 End: 07-05-2023 ambulatory NARENDRA AL Not Available Start: 10-04-2022 End: 10-04-2022 ambulatory Callum Chua Other [employer] Other Start: 10-04-2022 Patient encounter procedure Callum Thuychrisy [facility] Start: 11-09-2021 End: 11-10-[address] NARENDRA AL Facility:[facility] Start: 10-24-2021 End: 10-26-2021 Evaluation and management of inpatient DR NARENDRA AL Facility:[facility] Start: 06-22-2021 End: 06-22-2021 ambulatory Callum Thuychrissharon Other [employer] Other Start: 06-22-2021 Patient encounter procedure Callum Thuychrisy [facility] Start: 05-19-2021 End: 05-19-2021 ambulatory Callum Thuychrisy Other [employer] Other Start: 05-19-2021 Telephone encounter Callum Chua [facility] Start: 04-28-2021 End: 04-28-2021 ambulatory Callum Thuychrissharon Other [employer] Other Start: 04-28-2021 Patient encounter procedure Callum Thuychrisy [facility] Procedures Date Procedure Procedure Detail Performing Clinician Start: 04-24-2024 MM TOMOSYNTHESIS SCR EENING BI Narendra Al MD Work Phone: Start: 04-24-2024 Mammography Narendra berumen MD Work Phone: Start: 12-20-2023 Plain X-ray of bilat eral hands PHYSICIAN NO FAMILY Start: 11-28-2022 Mammography Narendra berumen MD Work Phone: Start: 12-13-2017 Colonoscopy Narendra berumen MD Work Phone: Plan of Treatment Date Care Activity Detail Author Start: 12-14-2027 Screening for malign ant neoplasm of colon [facility] Start: 09-30-2025 Screening for malign ant neoplasm of lung Lung Cancer Screening Shared Decision Making [facility] Comment on above: Postponed from 01/30 (Patient Refused) Start: 04-24-2025 Screening for malign ant neoplasm of breast Mammogram [facility] Start: 04-03-2025 End: 04-03-2025 Patient encounter procedure 04/03/2025 11:30 AM EST Office Visit [facility] [address] [place] [address] Narendra Al MD [address] [place] [phone] [facility] Start: 10-13-2024 Influenza vaccination Influenza Vacc ine (#1) [facility] Start: 09-30-2024 End: 09-30-2025 CBC W Auto Differential panel - Blood CBC and differential Lab Routine Encounter for long-term (current) use of medications Expected: 09/30/2024 (Approximate), Expires: 09/30/2025 [facility] Comment on above: Expected: 09/30/2024 (Approximate), Expires: 09/30/2025 Start: 09-30-2024 End: 09-30-2025 Comprehensive metabolic 2000 panel - Serum or Plasma Comprehensive metabolic panel Lab Routine Encounter for long-term (current) use of medications Expected: 09/30/2024 (Approximate), Expires: 09/30/2025 [facility] Work Phone: Comment on above: Expected: 09/30/2024 (Approximate), Expires: 09/30/2025 Start: 09-30-2024 End: 09-30-2025 Lipid 1996 panel - Serum or Plasma Lipid panel Lab Routine Lipid screening Expected: 09/30/2024 (Approximate), Expires: 09/30/2025 [facility] Comment on above: Expected: 09/30/2024 (Approximate), Expires: 09/30/2025 Start: 09-30-2024 End: 09-30-2025 Thyrotropin [Units/volume] in Serum or Plasma TSH Lab Routine Fatigue, unspecified type Expected: 09/30/2024 (Approximate), Expires: 09/30/2025 [facility] Comment on above: Expected: 09/30/2024 (Approximate), Expires: 09/30/2025 Start: 09-30-2024 End: 09-30-2024 Patient encounter procedure [facility] Comment on above: Arrived Start: 08-01-2024 Medicare Annual Well ness (AWV) Medicare Annual Wellness (AWV) [facility] Start: 04-07-2024 End: 06-05-2025 MG Breast - bilateral Screening Bilateral screening mammogram Imaging Routine Breast cancer screening by mammogram Expected: 04/07/2024, Expires: 06/05/2025 [facility] Work Phone: Comment on above: Expected: 04/07/2024 , Expires: 06/05/2025 Start: 04-07-2024 End: 04-07-2024 Patient encounter procedure 04/07/2024 10:45 AM EST Office Visit [facility] [address] [place] [phone] Narendra Al MD [address] [place] [phone] Arrived [facility] Comment on above: Arrived Start: 12-20-2023 [facility] Start: 11-29-2023 Screening for malign ant neoplasm of breast Mammogram [facility] Start: 10-14-2023 Influenza vaccination Influenza Vacc ine (#1) [facility] Start: 01-31-2020 Pneumococcal Vaccine : 65+ Years (1 of 1 - PCV) Pneumococcal Vaccine: 65+ Years (1 of 1 - PCV) [facility] Start: 2005 Pneumococcal Vaccine : 65+ Years (1 of 1 - PCV) Pneumococcal Vaccine: 65+ Years (1 of 1 - PCV) [facility] Start: 1955 Medicare Annual Well ness (AWV) Medicare Annual Wellness (AWV) [facility] Start: 1955 Screening for malign ant neoplasm of colon [facility] Start: 1955 Screening for malign ant neoplasm of lung Lung Cancer Screening Shared Decision Making [facility] Payers Date Payer Category Payer Medicare (Managed Care) [employer] [id number] 2024 Medicare [id number] 2023 Self-pay 1959 Medicare [id number] 1959 Unknown [id number] 1955 Unknown [id number]. 593 1955 Unknown [id number]. 593 1955 Unknown [id number] [id number]. 1259 1955 Unknown [id number] [id number]. 1259 1955 Unknown [id number] [id number]. 1259 1955 Unknown [id number] [id number]. 1259 Unknown [id number]. 531 Unknown [id number] [id number]. 531 Unknown [id number]. 531 Social History Date Type Detail Facility Unknown if ever smoked [employer] Other Start: 07-04-2023 End: 09-30-2024 Sex Assigned At [facility] Start: 01-08-2018 Tobacco smoking stat us NHIS Never smoked tobacco (finding) [facility] Start: 12-21-2023 End: 03-11-2024 Sex Female (finding) [facility] Start: 1955 Sex Assigned At Female F [facility] Start: 01-25-2023 Tobacco smoking stat [facility] Ex-smoker [facility] Start: 02-12-1975 End: 02-12-2015 History of tobacco use Current smoker [facility] Start: 02-12-1975 End: 02-12-2015 History of tobacco use Cigarette Smoker [facility] Start: 01-25-2023 End: 07-04-2023 Cigarettes smoked current (pack per day) - Reported 1 [facility] Start: 01-25-2023 Tobacco use and exposure Smokeless tobacco non-user [facility] Start: 10-01-2023 End: 09-30-2024 Alcoholic beverage intake Lifetime non-drinker (finding) [facility] [...] at Not on file [facility] Functional Status Date Assessment Result Facility 09-30-2024 Patient Health Quest ionnaire 2 item (PHQ-2) [Reported] [facility] Clinical Notes 04-28-2021 to 09-30-2024 Narendra Al MD - 09/30/2024 11:27 AM Chani Al MD - 09/30/2024 11:27 AM Chani lA MD - 09/30/2024 11:27 AM Chani Al MD - 09/30/2024 11:00 AM EDT Note Date & Type Note Facility 09-30-2024 History of Presen t illness Narrative Associated Problem(s): Former smoker Quit smoking in 2016 and prior 1 PPD x 40 years. Discussed LDCT to screen for lung cancer and patient declined. Associated Problem(s): Medicare annual wellness visit, subsequent Due for labs. Discussed proper diet and regular aerobic exercise. Need aerobic exercise 5-6 days a week for 30 minutes at a time. Smaller portions and limit total calories. Colonoscopy every 10 years. Tetanus every 10 years. Advised not to smoke. Associated Problem(s): Essential hypertension, benign BP controlled and monitor PRN. Discussed DASH diet. Images from the original note were not included. Subjective Patient ID: Tiffany Baltazar is a 69 y.o. female who presents for Medicare Annual Wellness Visit Subsequent (wellness). Presents for medicare annual wellness visit. Feels well today. Weight unchanged over the past year. Active and tries to walk several days a week. Tries to watch diet and eat healthy. Increased fruits and vegetables. Smaller portions and limits snacking. Tries [...] Relevant Orders TSH documented in this encounter [facility] 04-07-2024 History of Presen t illness Narrative [...] were not included. Subjective Patient ID: Tiffany Baltazar is a 69 y.o. female who presents [...] Bilateral screening mammogram documented in this encounter [facility] 01-17-2024 Evaluation note Diagnosis Onset Date Resolution Microscopic colitis acute Decem 2023 1:00pm [facility] Work Phone: 1(260) 370-240608-23-2023 Evaluation note* Encounter Date Diagnosis Assessment Notes Treatment Notes Treatment Clinical Notes Sep, Irritable bowel syndrome with diarrhea (ICD-10 - K58.0) Sep, Microscopic colitis (ICD-10 - K52.839) Patient has been doing well with no complaints of watery diarrhea or any cramping. Patient can stay on the medication as she needs to control any flares. Will send in refills for patient for 1 year. [employer] Other 05-11-2022 Evaluation note* Encounter Date Diagnosis Assessment Notes Treatment Notes Treatment Clinical Notes June, Microscopic colitis (ICD-10 - K52.839) RTO 1 YR June, Irritable bowel syndrome with diarrhea (ICD-10 - K58.0) [employer] Other 03-17-2022 Evaluation note* Encounter Date Diagnosis Assessment Notes Treatment Notes Treatment Clinical Notes Apr, Microscopic colitis (ICD-10 - K52.839) Srop Budesonide Follow up in 6-8 weeks [employer] Other Evaluation noteNo [employer] Other Evaluation noteNo assessment information available [facility] Work Phone: Evaluation note* Diagnosis Essential hypertension, benign (CMS/HCC)- Primary Essential [...] screening by mammogram documented in this encounter [facility] Healthcare[facility]* Diagnosis Essential hypertension, benign- Primary Essential hypertension, benign Myalgia- Primary Unspecified myalgia and myositis Arthralgia of both hands Essential hypertension, benign Essential hypertension, benign Encounter for long-term (current) use of medications Encounter for long-term (current) use of other medications Medicare annual wellness visit, subsequent- Primary Polymyalgia rheumatica (HHS-HCC) Polymyalgia rheumatica Essential hypertension, benign- Primary Essential hypertension, benign Polymyalgia rheumatica (HHS-HCC) Polymyalgia rheumatica Essential hypertension, benign- Primary Essential hypertension, benign Polymyalgia rheumatica (HHS-HCC) Polymyalgia rheumatica Acute bronchitis due to other specified organisms Breast cancer screening by mammogram Medicare annual wellness visit, subsequent- Primary Encounter for long-term (current) use of medications Encounter for long-term (current) use of other medications Lipid screening Screening for lipoid disorders Fatigue, unspecified type Essential hypertension, benign Essential hypertension, benign Former smoker Personal history of tobacco use, presenting hazards to health [facility] - Reported* Type Description Date Hospitalization History [employer] Other Summary Purpose Family History Relationship Condition Age at Onset Recorded Date/T gian father Unknown family member Unknown mother Unknown Advance Directives Advance Directive Response Recorded Date/ Time Advance Directives No November 27, 2017 9:55am Chief Complaint and Reason for Visit Chief Complaint Admit Date HAND PAIN/PMR/M25.50/M89.9 December 20, 2023 1:31pm 1 year follow up January 17, 2024 1 :00pm Reason for Visit Admit Date Microscopic colitis January 17, 2024 1 :00pm Additional Source Comments REASON FOR VISIT (unrecogniz ed section and content) Reason Comments Medicare Annual Wellness Visit Subsequen t wellness INFORMATION SOURCE (unrecogn ized section and content) DATE CREATED AUTHOR 07/21/2022 [facility] DATE CREATED AUTHOR AUTHOR'S ORGANIZ ATION 04/08/2024 [facility] EPIC DATE CREATED AUTHOR AUTHOR'S ORGANIZ ATION 08/10/2024 [facility] Care Teams (unrecognized sec tion and content) [...] March 10, 2024 End: March 10, 2024 Leadership Development Manager Relationship Specialty Start Date End Date Narendra Al MD [address] [place] [phone] PCP - General Family Medicine 08/02/23 Narendra Al MD [address] [place] [phone] PCP - Medical [place] 02/13/2402/11 Leadership Development Manager Relationship Specialty Start Date End Date Narendra Al MD [address] [place] [phone] PCP - General Family Medicine 08/02/23 Narendra Al MD [address] [place] [phone] PCP - Medical [place] 02/13/2402/11 Leadership Development Manager Relationship Specialty Start Date End Date Narendra Al MD [address] [place] [phone] PCP - General Family Medicine 08/02/23 Narendra Al MD [address] [place] [phone] PCP - Medical [place] 02/13/2402/11 Leadership Development Manager Relationship Specialty Start Date End Date Narendra Al MD [address] [place] [phone] PCP - General Family Medicine 08/02/23 Narendra Al MD [address] [place] [address] PCP - Medical [facility] 02/13/2402/11 Leadership Development Manager Relationship Specialty Start Date End Date Narendra Al MD [address] [place] [address] PCP - General Family [facility] 08/02/23 Narendra Al MD [address] [place] [address] PCP - Medical [facility] 02/13/2402/11 Goals (unrecognized section and content) Goals [...] BE BASED ON THE PRIMARY CLINICAL RECORDS. [facility]. provides no warranty or guarantee of the accuracy or completeness of information in this document.
[2024-10-09 13:57] LABS: Hematocrit 40.7 % (36.0-48.0); Hemoglobin 13.2 g/dL (12.0-16.0); Immature Granulocytes Abs Auto 0.03 10^3/uL (0.00-0.03); Immature Granulocytes Pct Auto 0.4 % (0.0-0.5); Lymphocytes Absolute Auto 2.5 10^3/uL (1.2-3.8); Mean Corpuscular HGB Conc 32.4 g/dL (29.9-35.2); Mean Corpuscular Hemoglobin 32.9 pg (26.7-34.0); Mean Corpuscular Volume 101.5 fL (81.0-99.0); Platelet Count 176 10^3/uL (150-450); Red Blood Count 4.01 10^6/uL (4.20-5.40); White Blood Count 7.8 10^3/uL (4.0-11.0)
[2024-10-09 14:07] LABS: Alanine Aminotransferase 25 U/L (14-59); Albumin Globulin Ratio 1.4; Albumin Level 3.9 g/dL (3.4-5.0); Alkaline Phosphatase 80 U/L (46-116); Anion Gap 11.0; Aspartate Amino Transferase 16 U/L (15-37); Blood Urea Nitrogen 16.0 mg/dL (7.0-18.0); Calcium 9.0 mg/dL (8.5-10.1); Carbon Dioxide 29.2 mmol/L (21.0-32.0); Chloride 102 mmol/L (98-107); Cholesterol 196 mg/dL (<=200); Estimated GFR (African America >60 (>=60 mL/min/1.73m^2); Estimated GFR (Non-African Ame >60 (>=60 mL/min/1.73m^2); Globulin 2.8 g/dL; Glucose 87 mg/dL (74-106); HDL Cholesterol 104 mg/dL (40-60); Potassium 4.2 mmol/L (3.5-5.1); Sodium 138 mmol/L (136-145); Thyroid Stimulating Hormone 1.025 uIU/mL (0.358-3.740); Total Protein 6.7 g/dL (6.4-8.2); Triglycerides 76 mg/dL (<=150); VLDL CHOLESTEROL 15.2 mg/dL
== END 2024-10-09 13:11 | disposition home or self-care (01) ==
LOC: LAB 13:13
PROVIDERS: PCP Family Medicine; Visit Provider Family Medicine
DX: Z79.899 Other long term (current) drug therapy (principal); Z13.220 Encounter for screening for lipoid disorders; R53.83 Other fatigue
CPT/HCPCS: 36415; 80053; 80061; 84443; 85025